=== PATIENT | female | born 1945 | race Caucasian/White ===

== ENCOUNTER 2023-02-04 22:00 | Inpatient (IN) ==
[2023-02-04 22:54] LABS: Basophils # (auto) 0.01 K/uL (0-0.2); Basophils % (auto) 0.1 %; Eosinophils # (auto) 0.09 K/uL (0-0.50); Hematocrit (blood only) 35.2 % (37.0-47.0); Hemoglobin 11.5 g/dl (12.0-16.0); Immature Granulocytes # (auto) 0.02 K/uL (0.01-0.20); Immature Granulocytes % (auto) 0.2 %; Lymphocytes # (auto) 1.42 K/uL (1.2-3.4); Lymphocytes % (auto) 15.4 %; Mean Corpuscular Hemoglobin 28.7 pg (25.0-34.0); Mean Corpuscular Hgb Conc 32.7 g/dL (32.0-36.0); Mean Corpuscular Volume 87.8 fL (80.0-100.0); Monocytes # (auto) 0.39 K/uL (0.11-0.59); Monocytes % (auto) 4.2 %; Neutrophils # (auto) 7.28 K/uL (1.40-6.50); Neutrophils % (auto) 79.1 %; Platelet Count 162 K/uL (130-400); RDW Coefficient of Variation 14.2 % (11.5-14.5); RDW Standard Deviation 45.2 fL (36.4-46.3); Red Blood Count 4.01 M/uL (4.20-5.40); White Blood Count 9.21 K/ul (4.8-10.8)
[2023-02-04 23:08] LABS: Albumin Globulin Ratio 1.3 (0.9-2); Albumin Level 3.4 gm/dl (3.4-5.0); BUN Creatinine Ratio 19.6 (10-20); Creatinine Clr Calc Pharmacy 44.1 ml/min; Est GFR (African American) 58.8 ml/min; Est GFR (Non-African American) 50.7 ml/min; Globulin 2.6 gm/dl (2.5-4.0); Magnesium 1.5 mg/dl (1.7-2.4); Potassium 3.7 mmol/L (3.5-5.1)
[2023-02-04 23:38] LABS: Adenovirus PCR Not Detected (NotDetected); Bordetella parapertussis PCR Not Detected (NotDetected); Bordetella pertussis PCR Not Detected (NotDetected); Chlamydia pneumoniae PCR Not Detected (NotDetected); Coronavirus 229E PCR Not Detected (NotDetected); Coronavirus CoV-2 (COVID19)PCR Not Detected (NotDetected); Coronavirus HKU1 PCR Not Detected (NotDetected); Coronavirus NL63 PCR Not Detected (NotDetected); Coronavirus OC43PCR Not Detected (NotDetected); Human Metapneumovirus PCR Not Detected (NotDetected); Influenza A PCR Not Detected (NotDetected); Influenza B PCR Not Detected (NotDetected); Mycoplasma pneumoniae PCR Not Detected (NotDetected); Parainfluenza Virus 1 PCR Not Detected (NotDetected); Parainfluenza Virus 2 PCR Not Detected (NotDetected); Parainfluenza Virus 3 PCR Not Detected (NotDetected); Parainfluenza Virus 4 PCR Not Detected (NotDetected); Respiratory Syncytial VirusPCR Not Detected (NotDetected); Rhinovirus/Enterovirus PCR Not Detected (NotDetected)
[2023-02-04 23:51] LABS: Troponin I High Sensitivity 67.9 pg/ml (0-14)
[2023-02-05] MEDS ORDERED: NITROGLYCERIN 2% OINTMENT 30GM TUBE EXT STA (00:49)
[2023-02-05] MEDS ORDERED: FUROSEMIDE INJ 20 MG/2 ML VIAL IV ONE ×2 (00:49→15:38)
[2023-02-05] MEDS ORDERED: ALBUT/IPRATROP 3MG/0.5MG NEB 3 ML VIAL ONE (00:54)
[2023-02-05] MEDS ORDERED: methylPREDNISolone 125 MG/2 ML VIAL IV STA (00:58)
[2023-02-05] MEDS ORDERED: LEVALBUTEROL HCL 0.63 MG/3 ML NEB NEB STA (01:02)
[2023-02-05] MEDS ORDERED: LEVALBUTEROL 1.25 MG/3 ML NEB NEB STA (01:05)
[2023-02-05] MEDS ORDERED: LEVALBUTEROL 1.25 MG/3 ML NEB ONE (01:06)
--- NOTE | 2023-02-05 01:35 | History & Physical Report ---
Date of Service February 05, 2023 Assessment & Plan (1) Acute CHF: Plan: 77yo Female with PMH dilated cardiomyopathy, HLD, HTN, CKD3, MS, CAD, PAD, hx colon cancer s/p bowel resection, LLL resection, neuropathy here for worsening SOB found to have CHF exacerbation. CHF exacerbation -patient not on low salt diet -in ED received lasix 20mg IV -CXR per my read mild pulm edema -resp panel negative -admit to PCU -track I/O's, daily weights -ordered lasix 20mg IV daily -trop 67.9, repeat pending -BNP 3412 -Mag 1.5, repleted -trend bmp Dilated cardiomyopathy -last cardiac cath 12/29 noted non ischemic dilated cardiomyopathy, EF by LVG severely reduced 25-30% -continue metoprolol, entresto, atorvastatin, aspirin, plavix GERD -continue protonix Chronic pain syndrome attributed to MS -uses PRN opioids 7.5 MME at home Left foot ulcer, chronic -consulted wound care FENa: heart healthy Code Status: DNR/intubate, daughter is POA DVT PPX: lovenox PT/OT: ordered Dispo: PCU Brittani Aguila D.O. PGY 2, FCM (2) Dilated cardiomyopathy: (3) Multiple sclerosis: (4) CAD (coronary artery disease): (5) Graves disease: (6) PAD (peripheral artery disease): (7) CKD (chronic kidney disease), stage III: (8) HTN (hypertension): History of Present Illness Chief Complaint: CHF exacerbation Primary Care Provider: Franck Ames MD 77yo Female with PMH dilated cardiomyopathy, HLD, HTN, CKD3, MS, CAD, PAD, hx colon cancer s/p bowel resection, LLL resection, neuropathy here for worsening SOB found to have CHF exacerbation. Patient states on night into monday she noted a cough, later progressed to increased SOB getting out of her chair walking across the room, she tried her inhaler it did help her symptoms. Today she noted SOB even while at rest, her daughter encouraged her to go to ED for concern pneumonia or heart failure. She describes mild nausea. SOB was worse laying down, she was sleeping propped on several pillows. In ED patient was tolerating room air, she tried to lay down and became hypoxic tachypnic was placed on BIPAP given lasix 20mg IV, also given breathing treatment levalbuterol and IV methylprednisolone, states her breathing improved. Patient states she has been eating out the past monday at [employer]. States she does not follow any particular diet, loves her sweets. She denies alcohol, has smoked about 8pk year history (60 years 1 pk a week) quit smoking last year due to housing restrictions. She has noted a 30lbs weight gain since last year that she attributes due to her diet and physical inactivity. She is not on diuretics. Patient was recently diagnosed with dilated cardiomyopathy after cardiac cath this year, believes it is due to her other daughter's this past year. Patient states her daughter is a physician and helps her with medication, daughter is POA. Allergies Allergy/AdvReac Type Severity Reaction Status Date / Time adhesive Allergy Intermediate SKIN Verified 02/04/23 22:50 BLISTERS, LOSES SKIN HERE AND THERE sulfamethoxazole AdvReac Severe CAUSED A Verified 02/04/23 22:50 [From Bactrim] PNEUMONITIS PER PT'S DAUGHTER trimethoprim [From Bactrim] AdvReac Severe CAUSED A Verified 02/04/23 22:50 PNEUMONITIS PER PT'S DAUGHTER amoxicillin [From Augmentin] AdvReac Intermediate Diarrhea Verified 02/04/23 22:50 clavulanic acid AdvReac Intermediate Diarrhea Verified 02/04/23 22:50 [From Augmentin] PAPER TAPE Allergy Intermediate SKIN Uncoded 02/04/23 22:50 BLISTERS, LOSES SKIN HERE AND THERE Home Medications Medication Instructions Recorded Confirmed Type aspirin 81 mg tablet,delayed 81 mg PO HS 03/31/22 02/04/23 History release (Adult Low Dose Aspirin) naproxen sodium 220 mg capsule 220 mg PO DIRECTED PRN Pain 04/06/22 02/04/23 History (Aleve) amantadine HCl 100 mg capsule 100 mg PO BID #180 caps 08/24/22 02/04/23 Rx clopidogrel 75 mg tablet (Plavix) 75 mg PO QAM #90 tabs 08/24/22 02/04/23 Rx omeprazole 20 mg capsule,delayed 20 mg PO QAM #90 caps 08/26/22 02/04/23 Rx release multivitamin 1 tab PO DAILY 11/08/22 02/04/23 History atorvastatin 10 mg tablet 10 mg PO QPM #30 tabs 12/21/22 02/04/23 Rx cyanocobalamin (vitamin B-12) 1,000 mcg PO DAILY 12/21/22 02/04/23 History 1,000 mcg tablet (Vitamin B-12) metoprolol succinate 25 mg 25 mg PO DAILY #30 tabs 01/03/23 02/04/23 Rx tablet,extended release 24 hr montelukast 10 mg tablet 10 mg PO DAILY 01/12/23 02/04/23 History oxycodone-acetaminophen 5 mg-325 1 tab PO DAILY PRN pain #60 tabs 01/19/23 02/04/23 Rx mg tablet (Percocet) sacubitril 24 mg-valsartan 26 mg 1 tab PO DAILY 01/19/23 02/04/23 History tablet (Entresto) albuterol sulfate 90 mcg/actuation 1 puff inhalation .Q4-6HR PRN 02/04/23 02/04/23 History aerosol inhaler Wheezing Past Med/Surg History Medical History Acid reflux Arthritis Graves disease History of bleeding ulcers History of blood clots History of colon cancer History of kidney stones HTN (hypertension) Multiple sclerosis Neuropathy Peripheral vascular disease Toe infection Surgical History History of bowel resection History of cholecystectomy History of colonoscopy History of endoscopy History of hysterectomy History of lobectomy of lung History of shoulder surgery History of toe surgery History of vascular surgery History of vascular surgery Family History Mother Family history of diabetes mellitus Aunt Family history of diabetes mellitus Sister Family history of diabetes mellitus Sister Family history of diabetes mellitus Uncle Family history of diabetes mellitus Uncle Family history of esophageal cancer Social History Smoking Status: Former smoker Tobacco Type: E-cigarettes / Vaping Cigarettes Per Day: VAPE DAILY /ADVISED NPO; Smoking End Date: quit 1 year ago, was 1 ppw; Do You Dip or Chew Tobacco: No; Hx Alcohol Use: No Hx Substance Use: No Preferred Language: [place]une[place] Communication Ability: Effective Visual Impairment: Limited Hearing Ability: Use of Hearing Aid Casting Molder Required: No Beliefs That Will Affect Care: None Current Living Situation: Alone Current Living Situation Comment: daughter checks on her daily and helps with ADLs as needed Other Information That Helps Us Care for You: No Feels Safe at Home: Yes Safety Concerns: Feels Safe At This Time Diet: regular caffeine: Yes Assistive Devices: Cane, Denture - Upper and Glasses Physical Exam Constitutional: WD/WN, vitals as above Eyes: PERRL, conjunctivae normal, anicteric sclerae ENMT: external ear and nose normal, oropharynx normal Neck: trachea midline, no thyromegaly Respiratory: normal respiratory effort Auscultation: lungs clear to auscultation bilaterally on bipap Cardiovascular: Rate/Rhythm: regular rate and regular rhythm Gastrointestinal (Abdomen): Inspection/Auscultation: abdomen normal to inspection Percussion/Palpation: + abdomen tender (bottom area due to prior surgeries) and abdomen soft Skin: no rashes, warm and dry Results & Data Results & Data Vital Signs (Past 12 Hours) Vital Signs Temp Pulse Resp Pulse Ox O2 Del Method 02/04/23 22:29 95 H 02/04/23 22:30 93 Room Air 02/04/23 22:04 36.7 C 53 L 18 96 Room Air Supervising Physician Co-Signing Physician Notes Attending addendum: I have physically seen this patient, have supervised the medical residents activities, and agree with the H&P unless as otherwise noted. Assessment and Plan: Acute on chronic HFpEF/elevated troponin/dilated cardiomyopathy/nonischemic by cardiac catheterization of 12-29-2022/nonsustained V. tach/CAD- The patient will be admitted to telemetry for serial cardiac enzymes, serial EKG's, cardiac rhythm monitoring and a 2-D echocardiogram with Dopplers. Troponin 67.9, supply/demand mismatch Received furosemide 20 mg IV in the ED Continue furosemide 20 mg IV every morning Follow serial BMP and magnesium levels Continue aspirin, clopidogrel, metoprolol succinate, Entresto Hyperglycemia- Glucose 212 on admission labs No notice of diabetes in the history note Check hemoglobin A1c Placed on Accu-Cheks with NovoLog SSI Hypomagnesemia- Magnesium 1.5 on admission Replace IV and recheck laboratories in a.m. GERD- Change omeprazole to pantoprazole Multiple sclerosis/parkinsonism- Continue amantadine B12 deficiency- Continue 1000 mcg daily supplement Remaining orders and notations as noted Resident Activity Tracking Resident Involvement: Resident Care Provided Care Provided: Adult Hospital Medicine
--- NOTE | 2023-02-05 02:02 | Emergency Department Note ---
Impression & Plan Acute CHF, Elevated troponin, SOB (shortness of breath) ED Provider Note INFORMANT: Patient and daughter ED PROVIDER(S): Cong Coates MD CHIEF COMPLAINT: Chest pain and dyspnea PLAN: Disposition: Admitted Condition: Guarded Outpatient prescription management: none Referral: None MEDICAL DECISION MAKING: Patient presented to emergency department because of chest pain and breathing difficulties. Work-up was initiated. ECG showed sinus tachycardia without ischemia. PVCs noted. Cardiac monitoring revealed moderate amount of ectopy but no dysrhythmia. The patient had a chest x-ray performed and showed cardiomegaly with mild pulmonary edema. She had an unremarkable CBC and chemistry panel. Her troponin was elevated as well as her BNP. BNP was significantly elevated and in light of her history this is concerning for CHF. The patient wanted to lie flat and did so. She became acutely dyspneic with this. She was reassessed. She had significant increased work of breathing and poor air movement. She was given a DuoNeb. She was placed on BiPAP. She was also given a Xopenex neb treatment. She was given Nitropaste and IV Lasix. Patient had a repeat chest x-ray performed. No pneumothorax. Similar findings of CHF. On reassessment the patient was improved significantly. She was breathing easy and vital signs are stabilized. Consultation was made with Dr. Phuc Beasley of the [facility] service. Patient was evaluated in the ER for further management. Discussed with client manager After review of the information above and other included data, I feel the patient requires admission. Triage Nursing notes reviewed and agree them. Vital Signs: reviewed and remarkable for hypertension Prior /Outside records reviewed: Primary care records reviewed Differential diagnosis: Reactive airway disease, pneumonia, pneumothorax, COPD, CHF, infections, cardiac ischemia, pulmonary embolism, musculoskeletal, gastrointestinal, as well as other pathologies. Diagnostics, as interpreted by me: ECG: Twelve-lead ECG was sinus tachycardia with PVCs at [address] elevation. Cardiac Monitoring: Cardiac monitoring ordered by me: The patient was placed on continuous cardiac monitoring and observed. It revealed a sinus tachycardia with PVCs at 106 bpm. Medical decision rules: none Imaging studies: Chest imaging was negative for pneumothorax or infiltrate. Cardiomegaly and pulmonary edema noted. Repeat chest x-ray with acute decompensation revealed no pneumothorax. Persi stent CHF findings. I refer you to the EMR for further details. HPI: The patient is a 77year old female who presents to the Emergency Room with complaints of chest pain and dyspnea. This started about 2 days ago and is worsening. Patient notes symptoms are worse with exertion Chest pain is described as pressure-like. The patient also notes the following associated sy mptoms, decreased energy. Daughter is a physician and noted that she heard crackles on her lungs, mostly on the right side. She notes that the patient has a history of coronary disease and peripheral vascular disease. She has an EF of 25%. The patient has used an inhaler for relieving factors. Current pain is rated as 8/10. Pt denies LOC, headache, fevers, chills, diaphoresis, visual changes, neck pain, nausea, vomiting, abdominal pain, back pain, melena, hematochezia, urinary symptoms, rash, or other complaints. PAST MEDICAL HISTORY: See Below, cardiomyopathy, osteomyelitis, CAD, PAD PAST SURGICAL HISTORY: See Below, SOCIAL HISTORY: See Below, former smoker HOME MEDICATIONS: See Below ALLERGIES: See Below VITALS: See Below PHYSICAL EXAMINATION: GENERAL: Awake, alert, wel mildly distant l-appearing, in no distress HENT: Normocephalic, atraumatic. Oropharynx unremarkable. EYES: Normal conjunctiva. Sclera non-icteric. NECK: Inspection normal. Non-tender. Supple. No nuchal rigidity. FROM. No masses. RESPIRATORY: Few scattered crackles, worse on the right. Single expiratory wheeze noted on the right. Mildly increased respiratory effort. CARDIAC: Borderline tachycardic rate. Normal rhythm. No murmurs. No rubs. Extremities warm and well perfused. Pulses equal. No JVD. GI: Soft, non-distended. No tenderness to palpation. No rebound or guarding. No masses. RECTAL: Deferred. MUSCULOSKELETAL: Atraumatic. Chest examination reveals no tenderness. The back is symmetrical on inspection without obvious abnormality. There is no CVA tenderness to palpation. No joint edema. LOWER EXTREMITIES: Calves are equal size bilaterally and non-tender. No edema. No discoloration. NEURO: Normal sensorium. No sensory or motor deficits noted. SKIN: No rash or jaundice noted. CRITICAL CARE: I have personally spent greater than 30 minutes of critical care time in the direct management of this patient. This includes bedside care, interpretation of diagnostic studies, and testing, discussion with consultants, patient, and other required patient management activities. These minutes are in excess of all separately billable procedures. Past Med/Surg History Medical History Acid reflux Arthritis Graves disease History of bleeding ulcers History of blood clots History of colon cancer History of kidney stones HTN (hypertension) Multiple sclerosis Neuropathy Peripheral vascular disease Toe infection Surgical History History of bowel resection History of cholecystectomy History of colonoscopy History of endoscopy History of hysterectomy History of lobectomy of lung History of shoulder surgery History of toe surgery History of vascular surgery History of vascular surgery Family History Mother Family history of diabetes mellitus Aunt Family history of diabetes mellitus Sister Family history of diabetes mellitus Sister Family history of diabetes mellitus Uncle Family history of diabetes mellitus Uncle Family history of esophageal cancer Social History Smoking Status: Former smoker Tobacco Type: E-cigarettes / Vaping Cigarettes Per Day: VAPE DAILY /ADVISED NPO; Do You Dip or Chew Tobacco: No; Hx Alcohol Use: No Hx Substance Use: No Preferred Language: Amharic Communication Ability: Effective Visual Impairment: Limited Hearing Ability: Use of Hearing Aid Lay Out Worker Required: No Beliefs That Will Affect Care: None Current Living Situation: Family Current Living Situation Comment: DAUGHTER STAYS MOST OF THE TIME, CATS AND A DOG Feels Safe at Home: Yes Diet: regular caffeine: Yes Assistive Devices: None Allergies Allergies Allergy/AdvReac Type Severity Reaction Status Date / Time adhesive Allergy Intermediate SKIN Verified 02/04/23 22:50 BLISTERS, LOSES SKIN HERE AND THERE sulfamethoxazole AdvReac Severe CAUSED A Verified 02/04/23 22:50 [From Bactrim] PNEUMONITIS PER PT'S DAUGHTER trimethoprim [From Bactrim] AdvReac Severe CAUSED A Verified 02/04/23 22:50 PNEUMONITIS PER PT'S DAUGHTER amoxicillin [From Augmentin] AdvReac Intermediate Diarrhea Verified 02/04/23 22:50 clavulanic acid AdvReac Intermediate Diarrhea Verified 02/04/23 22:50 [From Augmentin] PAPER TAPE Allergy Intermediate SKIN Uncoded 02/04/23 22:50 BLISTERS, LOSES SKIN HERE AND THERE Home Meds Home Medications Medication Instructions Recorded Confirmed aspirin 81 mg tablet,delayed 81 mg PO HS 03/31/22 02/04/23 release (Adult Low Dose Aspirin) naproxen sodium 220 mg capsule 220 mg PO DIRECTED PRN Pain 04/06/22 02/04/23 (Aleve) multivitamin 1 tab PO DAILY 11/08/22 02/04/23 cyanocobalamin (vitamin B-12) 1,000 mcg PO DAILY 12/21/22 02/04/23 1,000 mcg tablet (Vitamin B-12) montelukast 10 mg tablet 10 mg PO DAILY 01/12/23 02/04/23 sacubitril 24 mg-valsartan 26 mg 1 tab PO DAILY 01/19/23 02/04/23 tablet (Entresto) albuterol sulfate 90 mcg/actuation 1 puff inhalation .Q4-6HR PRN 02/04/23 02/04/23 aerosol inhaler Wheezing Previous Rx's Medication Instructions Recorded amantadine HCl 100 mg capsule 100 mg PO BID #180 caps 08/24/22 clopidogrel 75 mg tablet (Plavix) 75 mg PO QAM #90 tabs 08/24/22 omeprazole 20 mg capsule,delayed 20 mg PO QAM #90 caps 08/26/22 release atorvastatin 10 mg tablet 10 mg PO QPM #30 tabs 12/21/22 metoprolol succinate 25 mg 25 mg PO DAILY #30 tabs 01/03/23 tablet,extended release 24 hr oxycodone-acetaminophen 5 mg-325 1 tab PO DAILY PRN pain #60 tabs 01/19/23 mg tablet (Percocet) Results & Data (ED) Vital Signs Vital Signs - 24 hr 02/04/23 22:04 02/04/23 22:30 02/04/23 22:29 Temperature 36.7 C Temperature Source Temporal Artery Scan Pulse Rate 53 L 95 H Respiratory Rate 18 Respiratory Effort / Characteristics Non-Labored Spontaneous Respiratory Depth Normal Respiratory Pattern Pulse Oximetry 96 93 Oxygen Delivery Method Room Air Room Air Fraction of Inspired Oxygen Sepsis Recent Fever Within 48 Hours No Sepsis New/Unexplained Change in Mental Status No Sepsis Action Taken by Nursing No Action Required 02/05/23 01:34 Temperature Temperature Source Pulse Rate 106 H Respiratory Rate 35 H Respiratory Effort / Characteristics Spontaneous Labored Short of Breath Respiratory Depth Respiratory Pattern Tachypnea Pulse Oximetry 100 Oxygen Delivery Method Fraction of Inspired Oxygen 40 Sepsis Recent Fever Within 48 Hours Sepsis New/Unexplained Change in Mental Status Sepsis Action Taken by Nursing Laboratory Data 02/04/23 22:30 02/04/23 22:30 Lab Results 02/04/23 02/04/23 02/04/23 Range/Units 22:30 22:30 22:30 WBC 9.21 (4.8-10.8) K/ul RBC 4.01 L (4.20-5.40) M/uL Hgb 11.5 L (12.0-16.0) g/dl Hct 35.2 L (37.0-47.0) % MCV 87.8 (80.0-100.0) fL MCH 28.7 (25.0-34.0) pg MCHC 32.7 (32.0-36.0) g/dL RDW Std Deviation 45.2 (36.4-46.3) fL RDW Coeff of Aminah 14.2 (11.5-14.5) % Plt Count 162 (130-400) K/uL MPV 12.0 (9.4-12.4) fL Immature Gran % (Auto) 0.2 % Neut % (Auto) 79.1 % Lymph % (Auto) 15.4 % Cataño % (Auto) 4.2 % Eos % (Auto) 1.0 % Baso % (Auto) 0.1 % Neut # (Auto) 7.28 H (1.40-6.50) K/uL Lymph # (Auto) 1.42 (1.2-3.4) K/uL Cataño # (Auto) 0.39 (0.11-0.59) K/uL Eos # (Auto) 0.09 (0-0.50) K/uL Baso # (Auto) 0.01 (0-0.2) K/uL Immature Gran # (Auto) 0.02 (0.01-0.20) K/uL Sodium 142 (136-145) mmol/L Potassium 3.7 (3.5-5.1) mmol/L Chloride 111 H (98-107) mmol/L Carbon Dioxide 25 (21-32) mmol/L Anion Gap 6 (3-11) BUN 21 (6-23) mg/dl Creatinine 1.07 (0.6-1.2) mg/dl Est Cr Clr Drug Dosing 44.1 ml/min Est GFR ( Amer) 58.8 ml/min Est GFR (Non-Af Amer) 50.7 ml/min BUN/Creatinine Ratio 19.6 (10-20) Glucose 212 H (70-99(Fasting)) mg/dl Lactate (0.4-2.0) mmol/L Calcium 9.0 (8.6-10.3) mg/dl Magnesium 1.5 L (1.7-2.4) mg/dl Total Bilirubin 1.0 (0.2-1.0) mg/dl AST 11 L (13-39) U/L ALT 11 (7-52) U/L Alkaline Phosphatase 92 (34-104) U/L Troponin I High Sens 67.9 H* (0-14) pg/ml B-Natriuretic Peptide 3412 H (0-100) pg/ml Total Protein 6.0 (6.0-8.3) gm/dl Albumin 3.4 (3.4-5.0) gm/dl Globulin 2.6 (2.5-4.0) gm/dl Albumin/Globulin Ratio 1.3 (0.9-2) Adenovirus (PCR) (NotDetected) B. pertussis DNA (PCR) (NotDetected) B.parapertussis DNA PCR (NotDetected) C. pneumoniae DNA (PCR) (NotDetected) Coronavirus OC43 (PCR) (NotDetected) Coronavirus HKU1 (PCR) (NotDetected) Coronavirus 229E (PCR) (NotDetected) SARS-CoV-2 (PCR) (NotDetected) Coronavirus NL63 (PCR) (NotDetected) Human Metapneumovir PCR (NotDetected) Influenza Type A (PCR) (NotDetected) Influenza Type B (PCR) (NotDetected) M. pneumoniae (PCR) (NotDetected) Parainfluenza 1 (PCR) (NotDetected) Parainfluenza 2 (PCR) (NotDetected) Parainfluenza 3 (PCR) (NotDetected) Parainfluenza 4 (PCR) (NotDetected) RSV (PCR) (NotDetected) Entero/Rhino (PCR) (NotDetected) 02/04/23 02/04/23 Range/Units 22:30 22:51 WBC (4.8-10.8) K/ul RBC (4.20-5.40) M/uL Hgb (12.0-16.0) g/dl Hct (37.0-47.0) % MCV (80.0-100.0) fL MCH (25.0-34.0) pg MCHC (32.0-36.0) g/dL RDW Std Deviation (36.4-46.3) fL RDW Coeff of Aminah (11.5-14.5) % Plt Count (130-400) K/uL MPV (9.4-12.4) fL Immature Gran % (Auto) % Neut % (Auto) % Lymph % (Auto) % Cataño % (Auto) % Eos % (Auto) % Baso % (Auto) % Neut # (Auto) (1.40-6.50) K/uL Lymph # (Auto) (1.2-3.4) K/uL Cataño # (Auto) (0.11-0.59) K/uL Eos # (Auto) (0-0.50) K/uL Baso # (Auto) (0-0.2) K/uL Immature Gran # (Auto) (0.01-0.20) K/uL Sodium (136-145) mmol/L Potassium (3.5-5.1) mmol/L Chloride (98-107) mmol/L Carbon Dioxide (21-32) mmol/L Anion Gap (3-11) BUN (6-23) mg/dl Creatinine (0.6-1.2) mg/dl Est Cr Clr Drug Dosing ml/min Est GFR ( Amer) ml/min Est GFR (Non-Af Amer) ml/min BUN/Creatinine Ratio (10-20) Glucose (70-99(Fasting)) mg/dl Lactate 1.6 (0.4-2.0) mmol/L Calcium (8.6-10.3) mg/dl Magnesium (1.7-2.4) mg/dl Total Bilirubin (0.2-1.0) mg/dl AST (13-39) U/L ALT (7-52) U/L Alkaline Phosphatase (34-104) U/L Troponin I High Sens (0-14) pg/ml B-Natriuretic Peptide (0-100) pg/ml Total Protein (6.0-8.3) gm/dl Albumin (3.4-5.0) gm/dl Globulin (2.5-4.0) gm/dl Albumin/Globulin Ratio (0.9-2) Adenovirus (PCR) Not Detected (NotDetected) B. pertussis DNA (PCR) Not Detected (NotDetected) B.parapertussis DNA PCR Not Detected (NotDetected) C. pneumoniae DNA (PCR) Not Detected (NotDetected) Coronavirus OC43 (PCR) Not Detected (NotDetected) Coronavirus HKU1 (PCR) Not Detected (NotDetected) Coronavirus 229E (PCR) Not Detected (NotDetected) SARS-CoV-2 (PCR) Not Detected (NotDetected) Coronavirus NL63 (PCR) Not Detected (NotDetected) Human Metapneumovir PCR Not Detected (NotDetected) Influenza Type A (PCR) Not Detected (NotDetected) Influenza Type B (PCR) Not Detected (NotDetected) M. pneumoniae (PCR) Not Detected (NotDetected) Parainfluenza 1 (PCR) Not Detected (NotDetected) Parainfluenza 2 (PCR) Not Detected (NotDetected) Parainfluenza 3 (PCR) Not Detected (NotDetected) Parainfluenza 4 (PCR) Not Detected (NotDetected) RSV (PCR) Not Detected (NotDetected) Entero/Rhino (PCR) Not Detected (NotDetected) Administered Medications Discontinued Medications Albuterol (Albut/Ipratrop 3mg/0.5mg Neb 3 Ml Vial) Confirm Administered Dose 3 ml .ROUTE .STK-MED ONE Stop: 02/05/23 00:55 Last Admin: 02/05/23 01:14 Dose: Not Given Documented By: CLIVE Furosemide (Furosemide Inj 20 Mg/2 Ml Vial) 20 mg IV ONE ONE Stop: 02/05/23 00:50 Last Admin: 02/05/23 01:13 Dose: 20 mg Documented By: CLIVE Levalbuterol HCl (Levalbuterol Hcl 0.63 Mg/3 Ml Neb) 0.63 mg NEB NOW STA; Protocol Stop: 02/05/23 01:03 Last Admin: 02/05/23 01:21 Dose: Not Given Documented By: SYLWIA Levalbuterol HCl (Levalbuterol 1.25 Mg/3 Ml Neb) 1.25 mg NEB NOW STA; Protocol Stop: 02/05/23 01:06 Last Admin: 02/05/23 01:21 Dose: 1.25 mg Documented By: SYLWIA Levalbuterol HCl (Levalbuterol 1.25 Mg/3 Ml Neb) Confirm Administered Dose 1.25 mg .ROUTE .STK-MED ONE Stop: 02/05/23 01:07 Last Admin: 02/05/23 01:21 Dose: Not Given Documented By: SYLWIA Methylprednisolone (Methylprednisolone 125 Mg/2 Ml Vial) 125 mg IV NOW STA Stop: 02/05/23 00:59 Last Admin: 02/05/23 01:14 Dose: 125 mg Documented By: CLIVE Nitroglycerin (Nitroglycerin 2% Ointment 30gm Tube) 0.5 inch EXT NOW STA Stop: 02/05/23 00:50 Last Admin: 02/05/23 01:13 Dose: 0.5 inch Documented By: CLIVE Discharge Plan Visit Data Chief Complaint: Chest Pain Stated Complaint: CHEST PAIN AND PRESSURE, SHORTNESS OF BREATH ED Provider: Cong Coates Discharge Problem: Acute CHF, Elevated troponin, SOB (shortness of breath) Forms Stand Alone Forms: [facility] Prescriptions Prescriptions: No Action Entresto 24-26 mg tablet 1 tab PO DAILY amantadine HCl 100 mg capsule 100 mg PO BID Qty: 180 3RF clopidogrel [Plavix] 75 mg tablet 75 mg PO QAM Qty: 90 3RF oxycodone-acetaminophen [Percocet] 5-325 mg tablet 1 tab PO DAILY PRN (Reason: pain) Qty: 60 0RF cyanocobalamin (vitamin B-12) [Vitamin B-12] 1,000 mcg tablet 1,000 mcg PO DAILY atorvastatin 10 mg tablet 10 mg PO QPM Qty: 30 11RF metoprolol succinate 25 mg tablet extended release 24 hr 25 mg PO DAILY Qty: 30 11RF aspirin [Adult Low Dose Aspirin] 81 mg tablet,delayed release (DR/EC) 81 mg PO HS omeprazole 20 mg capsule,delayed release(DR/EC) 20 mg PO QAM Qty: 90 3RF montelukast 10 mg tablet 10 mg PO DAILY multivitamin Tablet 1 tab PO DAILY albuterol sulfate 90 mcg/actuation HFA aerosol inhaler 1 puff INHALATION .Q4-6HR PRN (Reason: Wheezing) naproxen sodium [Aleve] 220 mg Capsule 220 mg PO DIRECTED PRN (Reason: Pain) Referrals Referrals: Franck Ames MD [Primary Care Provider] -
[2023-02-05] MEDS ORDERED: POLYETHYLENE (MIRALAX) 17 GM PACK PO PRN (03:41)
[2023-02-05] MEDS ORDERED: ACETAMINOPHEN 325 MG TAB PO PRN (03:41)
[2023-02-05] MEDS: MAGNESIUM SULFATE / D5W 1 GM/100 ML BAG IV SCH ×4 (04:09→09:29)
[2023-02-05 04:28] LABS: Appearance Urine Clear (Clear); Bilirubin Urine Negative (Negative); Blood Urine Negative (Negative); Color Urine Yellow; Glucose Urine UA Negative (Negative); Ketones Urine Negative (Negative); Leukocyte Esterase Urine Negative (Negative); Nitrite Urine Negative (Negative); Protein Urine Negative (Negative); Specific Gravity Urine 1.013 (1.000-1.030); Urobilinogen Urine Negative (Negative)
[2023-02-05] MEDS: ENOXAPARIN INJ 40 MG/0.4 ML SYR SQ SCH (08:29)
[2023-02-05] MEDS: MULTIVITAMIN TAB PO SCH (08:31)
[2023-02-05] MEDS: CYANOCOBALAMIN (B-12) 500 MCG TABLET PO SCH (08:31)
[2023-02-05] MEDS: PANTOprazole 40 MG TAB PO SCH (08:31)
[2023-02-05] MEDS: AMANTADINE HCL 100 MG CAPSULE PO SCH ×2 (08:31→20:39)
[2023-02-05] MEDS: CLOPIDOGREL BISULFATE 75 MG TAB PO SCH (08:31)
[2023-02-05] MEDS: MONTELUKAST SODIUM 10 MG TABLET PO SCH (08:31)
[2023-02-05] MEDS: METOPROLOL SUCC 25MG EXT REL TAB PO SCH (08:31)
[2023-02-05] MEDS: FUROSEMIDE INJ 20 MG/2 ML VIAL IV SCH (08:43)
--- NOTE | 2023-02-05 10:38 | XRay Report ---
XR chest 1V portable CLINICAL HISTORY: Dyspnea TECHNIQUE: Single frontal radiograph of the chest was obtained. Comparison: Comparison is made to chest radiograph 08/25/2022 FINDINGS: No lines and tubes are seen. Cardiomegaly is noted. The aortic arch is calcified. Prominence and ceph alization of the vasculature is seen. No evidence of pleural effusion or pneumothorax. IMPRESSION: Cardiomegaly and mild pulmonary edema. No evidence of pneumonia. ACT 112: Negative or not required by law. Electronically signed by: Leonardo Mccullough M.D. 02/05/2023 10:37 AM
[2023-02-05 11:22] LABS: BUN Creatinine Ratio 18.8 (10-20); Creatinine Clr Calc Pharmacy 40.3 ml/min; Est GFR (African American) 52.8 ml/min; Est GFR (Non-African American) 45.5 ml/min; Magnesium 2.7 mg/dl (1.7-2.4); Potassium 3.7 mmol/L (3.5-5.1)
[2023-02-05] MEDS ORDERED: LANTUS PER UNIT CHARGE SQ ONE (11:44)
[2023-02-05] MEDS ORDERED: GLUCOSE 10 TAB/TUBE PO PRN (12:00)
[2023-02-05] MEDS ORDERED: DEXTROSE 50% 50 ML SYRINGE IV PRN (12:00)
[2023-02-05] MEDS ORDERED: GLUCAGON FOR INJ 1 MG VIAL IM PRN (12:00)
[2023-02-05] MEDS ORDERED: GLUCOSE 40% GEL 15 GM TUBE PO PRN (12:00)
[2023-02-05] MEDS ORDERED: CARBOHYDRATES FOR HYPOGLYCEMIA PO PRN (12:00)
[2023-02-05] MEDS: INSULIN ASPART PER UNIT CHARGE SC SCH ×3 (12:21→20:12)
--- NOTE | 2023-02-05 12:56 | XRay Report ---
XR chest 1V portable CLINICAL HISTORY: acute SOB TECHNIQUE: Single frontal radiograph of the chest was obtained. Comparison: Comparison is made to chest radiograph 02/04/2023 FINDINGS: No lines and tubes are seen. Cardiomegaly is noted. The aortic arch is calcified. The lungs are clear . No evidence of pleural effusion or pneumothorax. IMPRESSION: No acute abnormalities and in particular no radiographic evidence of pneumonia. ACT 112: Negative or not required by law. Electronically signed by: Leonardo Mccullough M.D. 02/05/2023 12:55 PM
--- NOTE | 2023-02-05 15:39 | Hospitalist Progress Note ---
Date of Service February 05, 2023 Assessment & Plan (1) Acute respiratory distress: Plan: 2nd to #2 - marked improvement required BIPAP early on - now resolved, over to NC O2 (2) Acute on chronic systolic heart failure: Plan: EF 45-50% on echo 11/2022 Cardiac cath - 12/29/22 - EF 25-30% repeat echo today - EF 30-35% has received several doses of IV lasix with improved volume status will give additional dose of 20mg lasix this afternoon, then continue 20mg IV daily cont metoprolol succinate 25mg daily resume Entresto tomorrow if BPs will allow and BMP is stable will ask Dr Santa to see in consult from [facility] Cardiology suspect that dietary indiscretion playing a large role in decompensation will ask rail maintenance worker to see to give nutritional counseling will need low-dose lasix at discharge (3) Elevated troponin: Plan: mild HS trop elevation 2nd to #2 had heart cath about 1 month ago - nonobstructive CAD only (4) Dilated cardiomyopathy: Plan: etiology of CHF?? 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 other? defer w/u to cardiology (5) Neuropathic ulcer of left foot: Plan: cont Aquacel and overlying dressing per the instructions listed in most recent [facility] note will ask wound care to see formally in consult (6) Multiple sclerosis: Plan: noted established dx cont amantadine (7) Graves disease: Plan: TSH 11/2022 wnl h/o Graves s/p radioactive iodine ablation many years ago (8) PAD (peripheral artery disease): Plan: noted cont statin cont plavix cont asa (9) CKD (chronic kidney disease), stage III: Plan: stage 3b daily BMP while on lasix (10) HTN (hypertension): Plan: BPs controlled today cont metoprolol resume Entresto as able (11) History of colon cancer: Plan: noted s/p resection check Fe studies given her chronic myalgias/cramps (12) History of lobectomy of lung: Plan: LLL 2nd to pulmonary nodule this was NON-cancerous by her report (13) Myalgia: Plan: Check Fe studies TSH wnl B12 778 in late 2021 Check CPK (14) Nonobstructive atherosclerosis of coronary artery: Plan: 12/[address] Santa -- Coronary angiography findings: LMT: Large-caliber vessel bifurcating into LAD and left circumflex. No angiographically significant disease. LAD: Large caliber and transapical vessel. Proximal segment with mild disease. Then at the level of the first septal but before the first diagonal there is a long eccentric stenosis of 40 to 50%. First diagonal is medium to large in caliber and branching. The mid and distal LAD provides additional septal branches and some small diagonal branches. There is no more than mild luminal irregularities in the remainder of the LAD and its branches. LCx: Large caliber and nondominant vessel. High arising small caliber OM1 followed by a large caliber multi branching OM 2. The AV groove vessel then becomes medium in caliber as it travels to the AV groove providing an atrial branch and terminating as a small distal vessel. There is diffuse mild plaque in the circumflex and its branches less than 20 to 30% stenosis. RCA: Medium to large caliber dominant vessel. Proximal segment with mild calcification and a long eccentric stenosis of up to 40%. The mid vessel has diffuse mild disease and mild calcification. Distally the vessel has minimal disease and bifurcates into a medium caliber PDA and a large multi branching posterolateral. These vessels have mild nonocclusive disease near the ostium and proximal portions. LVEF: 25 to 30% Inferior akinesis, moderate to severe global hypokinesis 2+ mitral regurgitation Cont BB Cont asa Cont plavix Cont statin (15) Hypomagnesemia: Plan: replaced resolved (16) DVT prophylaxis: Plan: lovenox daily (17) Hyperglycemia: Plan: she did receive IV solumedrol 125mg in the ER which is likely contributing the effects of such should be gone by tomorrow [id number] the high values are suspicious for new onset T2DM previous a1c was broderline high (for pre-DM) recheck a1c am change diet to DM diet lantus 8 units x 1 now novolog SSI re-eval tomorrow Plan daughter - Jennifer Rajan - updated by phone this evening Admission and Anticipated Discharge Date Admission Date: February 05, 2023 Subjective patient had required BIPAP in the ER upon presentation due to significant respiratory distress she was diuresed and symptoms improved able to wean BIPAP to NC O2 during my visit she reports she feels better than at ER presentation still with BROUSSARD and still requiring NC O2 still with a little cough had had edema in legs but this is improved tele wnl overnight - just ectopy she admits to eating out at multiple restaurants this past week diet is poor - "I love sweets" does not check daily weights no prior h/o diabetes has been working with [facility] wound care center for chronic L plantar foot ulcer it has improved significantly Review of Systems Review of Systems: gen - no fevers cv - no chest pain, ongoing orthopnea; edema improved pulm - dyspnea improved, but still with BROUSSARD; mild cough and wheeze GI - no abd pain or N/V Physical Exam Physical Exam: gen - NAD, pleasant neck - mild JVD mouth - MMM heart - RRR, extra beats, s1 s2, 1-2/6 MARY LLSB lungs - b/l basilar rales, mild end-exp wheezes, no increased work of breathing abd - soft NT ND BS+ ext - no edema, pulses 2+ b/l musculo - TMA of all 5 toes L foot skin - left foot, plantar aspect - tiny ulcer, 4-5mm in size, no drainage, clean psych - a/o x 3 Results & Data Results & Data Vital Signs (Past 12 Hours) Vital Signs Temp Pulse Pulse Resp BP Pulse Ox O2 Del Method 02/05/23 15:19 36.6 C 86 18 128/69 96 Nasal Cannula 02/05/23 08:00 Nasal Cannula 02/05/23 11:33 36.6 C 77 17 149/67 H 97 Nasal Cannula 02/05/23 07:00 76 02/05/23 07:38 37.0 C 79 17 127/72 97 Nasal Cannula 02/05/23 04:00 Nasal Cannula 02/05/23 04:00 36.8 C 81 22 143/84 H 95 Nasal Cannula O2 Flow Rate 02/05/23 15:19 2 02/05/23 08:00 2 02/05/23 11:33 2 02/05/23 07:00 02/05/23 07:38 2 02/05/23 04:00 2 02/05/23 04:00 2 Laboratory Results Laboratory Results - last 24 hr 02/05/23 02/05/23 02/05/23 05:15 10:41 12:08 WBC RBC Hgb Hct MCV MCH MCHC RDW Std Deviation RDW Coeff of Aminah Plt Count MPV Sodium 137 Potassium 3.7 Chloride 104 Carbon Dioxide 21 Anion Gap 12 H BUN 22 Creatinine 1.17 Est Cr Clr Drug Dosing 40.3 Est GFR ( Amer) 52.8 Est GFR (Non-Af Amer) 45.5 BUN/Creatinine Ratio 18.8 Glucose 321 H* POC Glucose 307 H* Estimat Average Glucose Hemoglobin A1c Calcium 9.0 Magnesium 2.7 H Iron TIBC Unsaturated IBC Transferrin % Sat Ferritin Total Creatine Kinase Troponin I High Sens 71.2 H* PG Care Time/CCT Total # of Minutes Spent Total Time Spent with Patient: Total time spent is greater than 50% in coordination of care (as documented) at patient's floor/unit and/or counseling patient: Coding Level of Care Code 53168 SUB INP/OBS CARE 3/50MIN Diagnoses Acute respiratory distress R06.03 Acute on chronic systolic heart failure I50.23 Elevated troponin R77.8 Dilated cardiomyopathy I42.0 Neuropathic ulcer of left foot L97.529 Multiple sclerosis G35 Graves disease E05.00 PAD (peripheral artery disease) I73.9 CKD (chronic kidney disease), stage III N18.30 HTN (hypertension) I10 History of colon cancer Z85.038 History of lobectomy of lung Z90.2 Myalgia M79.10 Nonobstructive atherosclerosis of coronary artery I25.10 Hypomagnesemia E83.42 DVT prophylaxis Z29.9 Hyperglycemia R73.9
[2023-02-05] MEDS: POTASSIUM CHLORIDE CRTAB 20 MEQ TABCR PO SCH ×2 (16:37→20:39)
--- NOTE | 2023-02-05 17:22 | XCELERA ---
[id number]
[2023-02-05] MEDS: traMADol HCL 50 MG TABLET PO PRN (20:39)
[2023-02-05] MEDS: ATORVASTATIN 10 MG TAB PO SCH (20:39)
[2023-02-05] MEDS: ASPIRIN 81 MG ECTAB PO SCH (20:39)
[2023-02-05] MEDS: ALBUTEROL 0.083% NEBU SOLN 3 ML VIAL NEB PRN (20:47)
--- NOTE | 2023-02-05 21:35 | Electrocardiogram Report ---
Test Reason : Blood Pressure : / mmHG Vent. Rate : 105 BPM Atrial Rate : 105 BPM P-R Int : 150 ms QRS Dur : 082 ms QT Int : 338 ms P-R-T Axes : 040 055 038 degrees QTc Int : 446 ms Sinus tachycardia with frequent Premature ventricular complexes Otherwise normal ECG No previous ECGs available Confirmed by Zac Cooper ([id number]) on 02/05/2023 9:35:29 PM Referred By: REFERRED SELF Confirmed By:Zac Cooper
[2023-02-06] MEDS: ALBUTEROL 0.083% NEBU SOLN 3 ML VIAL NEB PRN ×2 (03:40→14:44)
[2023-02-06 04:11] LABS: Hematocrit (blood only) 34.6 % (37.0-47.0); Hemoglobin 11.3 g/dl (12.0-16.0); Mean Corpuscular Hemoglobin 28.5 pg (25.0-34.0); Mean Corpuscular Hgb Conc 32.7 g/dL (32.0-36.0); Mean Corpuscular Volume 87.4 fL (80.0-100.0); Mean Platelet Volume 12.5 fL (9.4-12.4); Platelet Count 183 K/uL (130-400); RDW Coefficient of Variation 14.2 % (11.5-14.5); RDW Standard Deviation 45.5 fL (36.4-46.3); Red Blood Count 3.96 M/uL (4.20-5.40); White Blood Count 12.07 K/ul (4.8-10.8)
[2023-02-06 04:37] LABS: BUN Creatinine Ratio 23.2 (10-20); Calcium 9.1 mg/dl (8.6-10.3); Creatinine Clr Calc Pharmacy 31.2 ml/min; Est GFR (African American) 38.8 ml/min; Est GFR (Non-African American) 33.5 ml/min; Potassium 4.6 mmol/L (3.5-5.1)
[2023-02-06 04:54] LABS: Ferritin 26.6 ng/ml (8-388)
--- NOTE | 2023-02-06 05:17 | Billing Data ---
Date of Service February 06, 2023 Coding Level of Care Code 68781 INT INP/OBS CARE
--- NOTE | 2023-02-06 06:20 | Electrocardiogram Report ---
Test Reason : Blood Pressure : / mmHG Vent. Rate : 081 BPM Atrial Rate : 081 BPM P-R Int : 110 ms QRS Dur : 086 ms QT Int : 420 ms P-R-T Axes : -22 034 080 degrees QTc Int : 487 ms Sinus rhythm with short VT Nonspecific T wave abnormality Abnormal ECG When compared with ECG of 04-FEB-2023 22:12, (unconfirmed) Premature ventricular complexes are no longer Present VT interval has decreased Confirmed by Zac Cooper ([id number]) on 02/06/2023 6:19:51 AM Referred By: REFERRED SELF Confirmed By:Zac Cooper
[2023-02-06 08:22] LABS: Estimated Average Glucose 123 mg/dl; Hemoglobin A1C 5.9 % (4.5-5.6)
[2023-02-06] MEDS: PANTOprazole 40 MG TAB PO SCH (08:28)
[2023-02-06] MEDS: CYANOCOBALAMIN (B-12) 500 MCG TABLET PO SCH (08:28)
[2023-02-06] MEDS: AMANTADINE HCL 100 MG CAPSULE PO SCH ×2 (08:28→21:05)
[2023-02-06] MEDS: MULTIVITAMIN TAB PO SCH (08:28)
[2023-02-06] MEDS: CLOPIDOGREL BISULFATE 75 MG TAB PO SCH (08:28)
[2023-02-06] MEDS: METOPROLOL SUCC 25MG EXT REL TAB PO SCH (08:28)
[2023-02-06] MEDS: MONTELUKAST SODIUM 10 MG TABLET PO SCH (08:29)
[2023-02-06] MEDS: INSULIN ASPART PER UNIT CHARGE SC SCH ×4 (08:29→20:15)
[2023-02-06] MEDS: ENOXAPARIN INJ 40 MG/0.4 ML SYR SQ SCH (08:30)
[2023-02-06] MEDS: FUROSEMIDE INJ 20 MG/2 ML VIAL IV SCH (08:34)
[2023-02-06] MEDS ORDERED: POTASSIUM CHLORIDE CRTAB 20 MEQ TABCR PO SCH (09:00)
[2023-02-06] MEDS ORDERED: ALBUT/IPRATROP 3MG/0.5MG NEB 3 ML VIAL NEB STA (14:47)
--- NOTE | 2023-02-06 14:48 | Hospitalist Progress Note ---
Date of Service February 06, 2023 Assessment & Plan (1) Acute respiratory failure with hypoxia: Plan: SEVERE respiratory event today. Was sudden/abrupt following drinking water with a straw. She reports overt aspiration signs/symptoms with liquids for many months. Dysph agia for solids as well (had such with lunch today). Distress improved with aggressive pulm toilet and bronchodilators. STAT cxr without overt pneumonitis although infiltrates in the bases remain. Will need to follow carefully for development of fever, etc suggesting development of aspiration pneumonia. Place on solumedrol 30mg IV BID for severe wheezing. Schedule duonebs qid. NPO x for meds and sips. I spoke directly to speech therapy and they will see her in am for evaluation. She will need an instrumental study. May need GI consultation. Cause of dysphagia? Anatomical issue? Due to MS? other? (2) Aspiration into lower respiratory tract: Plan: Likely acute on chronic. See above. NPO. Speech consultation. etc. (3) Dysphagia: Plan: See above NPO Speech therapy eval Likely to need GI consultation given prior h/o esophageal stenosis or ring or other pathology that required EGD dilatation consider MRI brain to r/o progressive MS lesions (4) Acute on chronic systolic heart failure: Plan: EF 45-50% on echo 11/2022 Cardiac cath - 12/29/22 - EF 25-30% repeat echo this admission - EF 30-35% s/p multiple doses of lasix IV since admission following IV lasix this am she had little UOP with such her creatinine also loretta overnight decompensation likely resolved and remaining pulm symptoms are due to #2 stop further lasix cont metoprolol succinate 25mg daily resume Entresto when able cards consult with Dr Santa from [facility] Cardiology requested for any other recs suspect that dietary indiscretion played a large role in decompensation gusset ripper to see to give nutritional counseling will likely need low-dose lasix at discharge (5) Elevated troponin: Plan: mild HS trop elevation 2nd to #2 had heart cath about 1 month ago - nonobstructive CAD only see below (6) Dilated cardiomyopathy: Plan: etiology of CHF?? 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 other? defer w/u to cardiology - follows with Dr Santa (7) Neuropathic ulcer of left foot: Plan: cont Aquacel and overlying dressing per the instructions listed in most recent Wound Care Clinic note wound care consult requested (8) Multiple sclerosis: Plan: noted established dx cont amantadine previously followed by Dr Jamie Rutledge Neurology see above re: dysphagia (9) Graves disease: Plan: TSH 11/2022 wnl h/o Graves s/p radioactive iodine ablation many years ago (10) PAD (peripheral artery disease): Plan: noted cont statin cont plavix cont asa (11) CKD (chronic kidney disease), stage III: Plan: stage 3b creatinine loretta overnight in face of diuresis stop lasix daily BMP (12) HTN (hypertension): Plan: BPs controlled cont metoprolol resume Entresto when able (13) History of colon cancer: Plan: noted s/p resection checked Fe studies given her chronic myalgias/cramps - she is Fe deficient - see below (14) History of lobectomy of lung: Plan: LLL 2nd to pulmonary nodule this was NON-cancerous by her report (15) Myalgia: Plan: Fe studies c/w Fe def which could be contributing TSH wnl B12 778 in late 2021 CPK wnl (16) Nonobstructive atherosclerosis of coronary artery: Plan: 12/[address] Santa -- Coronary angiography findings: LMT: Large-caliber vessel bifurcating into LAD and left circumflex. No angiographically significant disease. LAD: Large caliber and transapical vessel. Proximal segment with mild disease. Then at the level of the first septal but before the first diagonal there is a long eccentric stenosis of 40 to 50%. First diagonal is medium to large in caliber and branching. The mid and distal LAD provides additional septal branches and some small diagonal branches. There is no more than mild luminal irregularities in the remainder of the LAD and its branches. LCx: Large caliber and nondominant vessel. High arising small caliber OM1 followed by a large caliber multi branching OM 2. The AV groove vessel then becomes medium in caliber as it travels to the AV groove providing an atrial branch and terminating as a small distal vessel. There is diffuse mild plaque in the circumflex and its branches less than 20 to 30% stenosis. RCA: Medium to large caliber dominant vessel. Proximal segment with mild calcification and a long eccentric stenosis of up to 40%. The mid vessel has diffuse mild disease and mild calcification. Distally the vessel has minimal disease and bifurcates into a medium caliber PDA and a large multi branching posterolateral. These vessels have mild nonocclusive disease near the ostium and proximal portions. LVEF: 25 to 30% Inferior akinesis, moderate to severe global hypokinesis 2+ mitral regurgitation Cont BB Cont asa Cont plavix Cont statin (17) Hypomagnesemia: Plan: replaced resolved (18) DVT prophylaxis: Plan: lovenox daily (19) Hyperglycemia: Plan: she did receive IV solumedrol 125mg in the ER which likely contributed the effects of such should be resolved at this point the high values were suspicious for new onset T2DM but a1c returned <6% since she will cont on steroids for #1 above cont "diabetic" diet novolog SSI in the face of steroid use everything is c/w pre-diabetes with uncontrolled hyperglycemia in the setting of steroids & illness (20) Iron deficiency: Plan: Fe studies c/w Fe deficiency --- transferrin sat 7%, ferritin 26 this is concerning given her colon ca history consider IV Fe while here consider checking CEA Plan daughter - Dr Jennifer Tolentino - updated by phone this afternoon extensively patient severely ill today and fortunately turned around by late afternoon with more stable resp status multiple visits to pt's bedside care d/w speech therapy complex care coordination - total visitation time and care coordination time today about 90 minutes Admission and Anticipated Discharge Date Admission Date: February 05, 2023 Subjective tele overnight wnl except ectopy I was STAT paged in the early afternoon that patient was in significant respiratory distress upon arrival she was tachypneic, using accessory muscles, retracting, breathless, had severe hoarse voice, was actively cough oxymask had been placed by staff respiratory paged -- albuterol neb x 1 given STAT followed by duoneb x 1 STAT patient reports had normal night last pm without any distress awoke this am feeling ok ate good breakfast felt a little congested through the morning but no distress lunch - had meat and it "got stuck" in the mid esophagus - took a "while to go down" was drinking water via straw after lunch, then needed to use the bathroom nursing was called and after getting out of bed went into severe resp distress initial exam - SEVERE wheezing all lung segments; diffuse crackles right ant chest and right posterior chest; minimal rales bases; severe distress as above following nebs - wheezing improved, distress / retractions / accessory muscle use / tachypnea -- ALL IMPROVED STAT cxr obtained - my reading - infiltrates b/l bases a little worse EKG obtained - NSR, no ST changes - my reading patient reports that for several months she has had dysphagia for some solids with drinking liquids she has frequent sneezing, coughing, voice changes she often has a feeling of "things going down the wrong pipe" she stated she didn't give it much thought or attention she has noted intermittent wheezing "for months" and thought to herself "do I have asthma now?" she was given an inhaler in the past and has used it intermittently over the last few months she had an EGD when she lived in [facility] - can't remember the year was told she had stricture or stenosis and underwent dilatation was also hospitalized for PUD with bleeding years ago - [facility] ? [place] - has not seen neurology in quite some time - previously saw Dr Jamie Rutledge Neurology (now retired) Review of Systems Review of Systems: gen - no fevers or chills cv - no chest pain; did not have orthopnea overnight pulm - severe cough during and after her event today; severe dyspnea at rest with wheezing; severe BROUSSARD GI - no vomiting, no nausea, dysphagia as per HPI - with AM lasix today only put out <500cc Physical Exam Physical Exam: gen - severe distress with tachypnea, retractions, accessory muscle use, audible wheezing across the room, unable to talk in sentences; distress improved about 30-45 min later following serial nebs neck - no JVD today voice - VERY hoarse; she complains of discomfort in location of larynx; NO STRIDOR mouth - MMM heart - tachycardia, extra beats, s1 s2, 1-2/6 MARY LLSB lungs - extensive wheezes b/l, resp distress as above, prominent rales right lung, some rales left lung; after nebs & pulm toilet -- rales on right improved abd - soft NT ND BS+ ext - no edema, pulses 2+ b/l musculo - TMA of all 5 toes L foot psych - a/o x 3 Results & Data Results & Data Vital Signs (Past 12 Hours) Vital Signs Temp Pulse Resp BP Pulse Ox O2 Del Method O2 Flow Rate 02/06/23 14:45 89 28 H 98 Oxymask 4 02/06/23 11:53 36.6 C 83 18 144/88 H 98 Nasal Cannula 2 02/06/23 08:00 Nasal Cannula 2 02/06/23 08:07 36.6 C 77 18 107/66 98 Nasal Cannula 2 02/06/23 03:40 82 22 98 Nasal Cannula 2 02/06/23 03:09 36.4 C L 88 16 116/84 98 Nasal Cannula Laboratory Results Laboratory Results - last 24 hr 02/05/23 02/05/23 02/06/23 17:05 20:08 03:25 WBC 12.07 H RBC 3.96 L Hgb 11.3 L Hct 34.6 L MCV 87.4 MCH 28.5 MCHC 32.7 RDW Std Deviation 45.5 RDW Coeff of Aminah 14.2 Plt Count 183 MPV 12.5 H Sodium Potassium Chloride Carbon Dioxide Anion Gap BUN Creatinine Est Cr Clr Drug Dosing Est GFR ( Amer) Est GFR (Non-Af Amer) BUN/Creatinine Ratio Glucose POC Glucose 191 H 131 H Estimat Average Glucose Hemoglobin A1c Calcium Iron TIBC Unsaturated IBC Transferrin % Sat Ferritin Total Creatine Kinase 02/06/23 02/06/23 02/06/23 03:25 03:25 07:07 WBC RBC Hgb Hct MCV MCH MCHC RDW Std Deviation RDW Coeff of Aminah Plt Count MPV Sodium 137 Potassium 4.6 D Chloride 105 Carbon Dioxide 24 Anion Gap 8 BUN 35 H Creatinine 1.51 H D Est Cr Clr Drug Dosing 31.2 Est GFR ( Amer) 38.8 Est GFR (Non-Af Amer) 33.5 BUN/Creatinine Ratio 23.2 H Glucose 158 H POC Glucose 134 H Estimat Average Glucose 123 Hemoglobin A1c 5.9 H Calcium 9.1 Iron 24 L TIBC 351 Unsaturated IBC 327 Transferrin % Sat 7 L Ferritin 26.6 Total Creatine Kinase 66 02/06/23 10:53 WBC RBC Hgb Hct MCV MCH MCHC RDW Std Deviation RDW Coeff of Aminah Plt Count MPV Sodium Potassium Chloride Carbon Dioxide Anion Gap BUN Creatinine Est Cr Clr Drug Dosing Est GFR ( Amer) Est GFR (Non-Af Amer) BUN/Creatinine Ratio Glucose POC Glucose 145 H Estimat Average Glucose Hemoglobin A1c Calcium Iron TIBC Unsaturated IBC Transferrin % Sat Ferritin Total Creatine Kinase PG Care Time/CCT Total # of Minutes Spent Total Time Spent with Patient: Total time spent is greater than 50% in coordination of care (as documented) at patient's floor/unit and/or counseling patient: Prolonged Care Time Prolonged Care Time: Yes Total Prolonged Care Time: 90 Coding Level of Care Code 25801 SUB INP/OBS CARE 3/50MIN (25 - SIGNIFICANT, SEPARATELY IDENTIFIABLE ) Diagnoses Acute respiratory failure with hypoxia J96.01 Aspiration into lower respiratory tract T17.800A Dysphagia R13.10 Acute on chronic systolic heart failure I50.23 Elevated troponin R77.8 Dilated cardiomyopathy I42.0 Neuropathic ulcer of left foot L97.529 Multiple sclerosis G35 Graves disease E05.00 PAD (peripheral artery disease) I73.9 CKD (chronic kidney disease), stage III N18.30 HTN (hypertension) I10 History of colon cancer Z85.038 History of lobectomy of lung Z90.2 Myalgia M79.10 Nonobstructive atherosclerosis of coronary artery I25.10 Hypomagnesemia E83.42 DVT prophylaxis Z29.9 Hyperglycemia R73.9 Iron deficiency E61.1 Additional Codes Prolonged Care Time - Prolonged Care Time: Yes ([id number]) Time Spent (min) 90
--- NOTE | 2023-02-06 15:15 | XRay Report ---
XR chest 1V portable HISTORY: 77 years-old Female resp distress; aspiration event?? Dysphasia with acute shortness of reese ath COMPARISON: 02/05/2023 TECHNIQUE: AP view of the chest FINDINGS: Cardiac silhouette is enlarged. Atherosclerosis of the aorta. Trace pleural effusions with mild left basilar opacities. No pneumothorax. Pulmonary vascular congestion. Degenerative changes of the should ers and spine. IMPRESSION: 1. Cardiomegaly with pulmonary vascular congestion. 2. Trace pleural effusions with mild left basilar opacities favoring atelectasis. ACT 112: Negative or not required by law. The above report was generated using voice recognition software. It may contain grammatical, syntax o r spelling errors. Electronically signed by: Shamar Stovall M.D. 02/06/2023 3:14 PM
--- NOTE | 2023-02-06 17:12 | Electrocardiogram Report ---
Test Reason : Blood Pressure : / mmHG Vent. Rate : 083 BPM Atrial Rate : 083 BPM P-R Int : 142 ms QRS Dur : 086 ms QT Int : 370 ms P-R-T Axes : 065 061 095 degrees QTc Int : 434 ms Poor data quality, interpretation may be adversely affected Normal sinus rhythm Nonspecific ST abnormality When compared with ECG of 05-FEB-2023 02:06, UT interval has increased Confirmed by Erasmo Hoyt ([id number]) on 02/06/2023 5:11:51 PM Referred By: REFERRED SELF Confirmed By:Gautam Hoyt
[2023-02-06] MEDS: methylPREDNISolone 30 MG in SYRINGE 0 ML IV SCH (17:24)
[2023-02-06] MEDS: ALBUT/IPRATROP 3MG/0.5MG NEB 3 ML VIAL NEB SCH (19:43)
[2023-02-06] MEDS: ASPIRIN 81 MG ECTAB PO SCH (21:05)
[2023-02-06] MEDS: ATORVASTATIN 10 MG TAB PO SCH (21:05)
[2023-02-06] MEDS: PANTOprazole 40 MG in SYRINGE 0 ML IV SCH (21:06)
[2023-02-06] MEDS: traMADol HCL 50 MG TABLET PO PRN (21:08)
[2023-02-07] MEDS: methylPREDNISolone 30 MG in SYRINGE 0 ML IV SCH ×2 (04:38→17:42)
[2023-02-07 06:19] LABS: Hematocrit (blood only) 32.6 % (37.0-47.0); Hemoglobin 10.5 g/dl (12.0-16.0); Mean Corpuscular Hemoglobin 28.2 pg (25.0-34.0); Mean Corpuscular Hgb Conc 32.2 g/dL (32.0-36.0); Mean Corpuscular Volume 87.4 fL (80.0-100.0); Platelet Count 144 K/uL (130-400); RDW Coefficient of Variation 14.3 % (11.5-14.5); RDW Standard Deviation 45.7 fL (36.4-46.3); Red Blood Count 3.73 M/uL (4.20-5.40)
[2023-02-07 06:33] LABS: BUN Creatinine Ratio 28.4 (10-20); Est GFR (African American) 42.1 ml/min; Est GFR (Non-African American) 36.3 ml/min; Potassium 5.2 mmol/L (3.5-5.1)
[2023-02-07] MEDS: ALBUT/IPRATROP 3MG/0.5MG NEB 3 ML VIAL NEB SCH ×4 (07:18→18:58)
[2023-02-07] MEDS: INSULIN ASPART PER UNIT CHARGE SC SCH ×4 (08:23→20:59)
[2023-02-07] MEDS: AMANTADINE HCL 100 MG CAPSULE PO SCH ×2 (08:24→19:56)
[2023-02-07] MEDS: MONTELUKAST SODIUM 10 MG TABLET PO SCH (08:24)
[2023-02-07] MEDS: PANTOprazole 40 MG in SYRINGE 0 ML IV SCH ×2 (08:24→20:59)
[2023-02-07] MEDS: CLOPIDOGREL BISULFATE 75 MG TAB PO SCH (08:25)
[2023-02-07] MEDS: METOPROLOL SUCC 25MG EXT REL TAB PO SCH (08:25)
[2023-02-07] MEDS: ENOXAPARIN INJ 40 MG/0.4 ML SYR SQ SCH (08:25)
[2023-02-07] MEDS: CYANOCOBALAMIN (B-12) 500 MCG TABLET PO SCH (08:25)
[2023-02-07] MEDS: MULTIVITAMIN TAB PO SCH (08:25)
[2023-02-07 12:26] LABS: BUN Creatinine Ratio 28.9 (10-20); Calcium 9.4 mg/dl (8.6-10.3); Creatinine Clr Calc Pharmacy 32.2 ml/min; Est GFR (African American) 39.4 ml/min; Potassium 4.9 mmol/L (3.5-5.1)
--- NOTE | 2023-02-07 12:57 | Fluoroscopy Report ---
FL video swallow CLINICAL HISTORY: assess for aspiration TECHNIQUE: Video fluoroscopy of the pharyngeal region was performed as barium mixtures of varying con sistencies were administered to the patient by the speech pathologist. A formal esophagram was not pe rformed. Comparison: None available at the time of this dictation. FINDINGS: Total fluoroscopy time: 1.8 minutes. Radiation dose: 18.03 mGy. Dysmotility was seen. Penetration without aspiration was seen with thin liquids. Pooling of barium wa s noted in the bilateral piriform sinuses and valleculae. IMPRESSION: Penetration without evidence of aspiration with thin liquids. Please see the speech pathology report for further details. ACT 112: Negative or not required by law. Electronically signed by: Leonardo Mccullough M.D. 02/07/2023 12:36 PM
--- NOTE | 2023-02-07 16:18 | Cardiology Consultation ---
Date of Consultation February 07, 2023 Assessment & Plan (1) Nonobstructive atherosclerosis of coronary artery: Continue guideline directed medical therapy for secondary prevention utilizing aspirin 81 mg daily, a atorvastatin, Toprol-XL, and Entresto. Blood pressure and heart rate are currently at target so there is no need to change the dosages at this time. (2) Acute on chronic systolic heart failure: EF is essentially unchanged. I am not sure that the patient weighs himself maida ly but this is a critical tool in preventing heart failure readmission. She had not been requiring any loop diuretics as an outpatient. Continue IV Lasix 20 mg daily at this time until we achieve euvolemia. Then, she will likely require 20 to 40 mg p.o. daily at minimum to maintain euvolemia. We will also continue with her chronic heart failure regimen including Toprol-XL 25 mg daily and Entre sto 24/26 mg daily. I would avoid the use of amlodipine given its propensity for fluid retention. We need to identify a medication which she can take at home to control the occasional spikes in her blood pressure. Furthermore, it may have been the hypertension triggered the decompensated heart failure so improving blood pressure control is an important long-term goal. We may need to consider a long-acting nitrate or the use of hydralazine. I would also favor the addition of an SGLT2 inhibitor and/or spironolactone. The diuretic may be an issue given her renal function. We previously had recommended a wearable defibrillator and possible ICD. After a brief trial she and the family decided against a wearable defibrillator. (3) PVCs (premature ventricular contractions): This may certainly be contributing to her reduced EF. I will discuss possible PVC ablation. For now, we are trying to control this with her beta-eusebia. (4) Atherogenic dyslipidemia: Patient is high risk. She is on a atorvastatin 10 mg daily. We will titrate this to achieve target LDL reduction. History of Present Illness Reason for Consultation: Congestive heart failure Attending Physician: Tosha Renteria MD History of Present Illness 77-year-old female with a known history of dilated cardiomyopathy, nonocclusive coronary disease, moderate mitral regurgitation, and chronic kidney disease stage III presented with worsening shortness of breath and chest tightness. This actually had been ongoing for several days prior to admission. Her daughter (who is a physician) noted that the patient's blood pressure had been very elevated and the patient decided to take her amlodipine. This medication had recently been discontinued in favor of a heart failure regimen. The blood pressure did improve somewhat but the dyspnea worsened. She was subsequently brought to the emergency department and admitted for congestive heart failure. She has been placed on IV Lasix and a swallow study was performed to evaluate for evidence of aspiration. Patient has a history of esophageal stricture and dilatation. She tells me that she has been feeling fullness in her throat after eating and had mentioned to her family that maybe she was having more stricture. She also admits that she had been having shortness of breath for far longer than what her daughter was aware of but she never mentioned it to her. She did not experience significant lower extremity edema. She denies any anginal type chest pain, syncope, near syncope, PND, racing heartbeat, or palpitations. Echocardiogram was performed on this admission demonstrating EF of 30 to 35%, moderate mitral regurgitation, mild tricuspid regurgitation. Compared to a prior echo which was of poor quality the EF is worse. However, she also had a catheterization between the 2 studies which confirmed low EF by left ventriculogram (25 to 30%) and also confirmed moderate mitral regurgitation. On catheterization she had only mild nonocclusive disease with 40 to 50% stenosis in the LAD, 20 to 30% stenosis in the circumflex, and 40% stenosis in the RCA. Also of note the patient had previous cardiac monitoring demonstrating a high frequency of PVCs and brief (3-5 beats) runs of nonsustained ventricular tachycardia. Patient does admit to mild shortness of breath at rest, dyspnea on exertion, orthopnea, and trace bilateral lower extremity edema. Since her admission and initiation of IV Lasix she states that her breathing is better although not back to normal. The swallowing study demonstrated "penetration" but no clear evidence of aspiration. There was dysmotility in the esophagus. She denies any fevers, chills, or bleeding. No other pertinent complaints at this time. Allergies Allergy/AdvReac Type Severity Reaction Status Date / Time adhesive Allergy Intermediate SKIN Verified 02/04/23 22:50 BLISTERS, LOSES SKIN HERE AND THERE sulfamethoxazole AdvReac Severe CAUSED A Verified 02/04/23 22:50 [From Bactrim] PNEUMONITIS PER PT'S DAUGHTER trimethoprim [From Bactrim] AdvReac Severe CAUSED A Verified 02/04/23 22:50 PNEUMONITIS PER PT'S DAUGHTER amoxicillin [From Augmentin] AdvReac Intermediate Diarrhea Verified 02/04/23 22:50 clavulanic acid AdvReac Intermediate Diarrhea Verified 02/04/23 22:50 [From Augmentin] PAPER TAPE Allergy Intermediate SKIN Uncoded 02/04/23 22:50 BLISTERS, LOSES SKIN HERE AND THERE Home Medications Medication Instructions Recorded Confirmed Type aspirin 81 mg tablet,delayed 81 mg PO HS 03/31/22 02/04/23 History release (Adult Low Dose Aspirin) naproxen sodium 220 mg capsule 220 mg PO DIRECTED PRN Pain 04/06/22 02/04/23 History (Aleve) amantadine HCl 100 mg capsule 100 mg PO BID #180 caps 08/24/22 02/04/23 Rx clopidogrel 75 mg tablet (Plavix) 75 mg PO QAM #90 tabs 08/24/22 02/04/23 Rx omeprazole 20 mg capsule,delayed 20 mg PO QAM #90 caps 08/26/22 02/04/23 Rx release multivitamin 1 tab PO DAILY 11/08/22 02/04/23 History atorvastatin 10 mg tablet 10 mg PO QPM #30 tabs 12/21/22 02/04/23 Rx cyanocobalamin (vitamin B-12) 1,000 mcg PO DAILY 12/21/22 02/04/23 History 1,000 mcg tablet (Vitamin B-12) metoprolol succinate 25 mg 25 mg PO DAILY #30 tabs 01/03/23 02/04/23 Rx tablet,extended release 24 hr montelukast 10 mg tablet 10 mg PO DAILY 01/12/23 02/04/23 History oxycodone-acetaminophen 5 mg-325 1 tab PO DAILY PRN pain #60 tabs 01/19/23 02/04/23 Rx mg tablet (Percocet) sacubitril 24 mg-valsartan 26 mg 1 tab PO DAILY 01/19/23 02/04/23 History tablet (Entresto) albuterol sulfate 90 mcg/actuation 1 puff inhalation .Q4-6HR PRN 02/04/23 02/04/23 History aerosol inhaler Wheezing Patient History Medical History Acid reflux HX Arthritis Graves disease RADIOACTIVE IODINE History of bleeding ulcers REMOTE HX History of blood clots LEGS/REASON FOR BLOOD THINNER...NO CLOTS SINCE ON BLOOD THINNER History of colon cancer 4-5 YR AGO/SX INTERVENTION History of kidney stones HTN (hypertension) Multiple sclerosis Neuropathy Peripheral vascular disease Toe infection ABX TX FINISHED LAST WEEK - LEFT FOOT - INFECTION IS NOT CLEARED UP / REASON FOR UPCOMING PROCEDURE Surgical History History of bowel resection FOR COLON CA 4-5 YR AGO History of cholecystectomy History of colonoscopy History of endoscopy History of hysterectomy History of lobectomy of lung LEFT LOWER LOBE PARTIAL History of shoulder surgery History of toe surgery JANUARY 2022 - [facility]/2 TOES REMOVED History of vascular surgery STENTS BOTH FEMORALS , MULTIPLE , HX CLOTTING AFTERWARDS ...AORTIC BI FEMORAL BYPASS History of vascular surgery AORTIC BI FEMORAL BYPASS PER PT Family History Mother Family history of diabetes mellitus Aunt Family history of diabetes mellitus Sister Family history of diabetes mellitus Sister Family history of diabetes mellitus Uncle Family history of diabetes mellitus Uncle Family history of esophageal cancer Social History Smoking Status: Former smoker Tobacco Type: E-cigarettes / Vaping Cigarettes Per Day: VAPE DAILY /ADVISED NPO; Smoking End Date: quit 1 year ago, was 1 ppw; Do You Dip or Chew Tobacco: No; Hx Alcohol Use: No Hx Substance Use: No Preferred Language: Danish Communication Ability: Effective Visual Impairment: Limited Hearing Ability: Use of Hearing Aid Shrimp Picker Required: No Beliefs That Will Affect Care: None Current Living Situation: Alone Current Living Situation Comment: daughter checks on her daily and helps with ADLs as needed Other Information That Helps Us Care for You: No Feels Safe at Home: Yes Safety Concerns: Feels Safe At This Time Diet: regular caffeine: Yes Assistive Devices: Cane, Denture - Upper, Glasses, Walker and Wheelchair Review of Systems Review of Systems: Patient was having a cough which is slightly improved and has been ongoing for weeks. Her infection panel was unremarkable. No major viral infections noted. The remainder of her 12 point review of systems is negative except as per HPI Physical Exam Constitutional: Awake, alert, oriented obese elderly female. No acute distress. Wearing facemask. Mild respiratory distress with speech. Eyes: Extraocular muscles intact. Sclera are anicteric. ENMT: Oral mucosa is pink moist and intact Neck: JVD 7 to 8 cm Respiratory: Dullness left base. Diffuse mild crackles. Poor air movement. No wheezing or rhonchi. Cardiovascular: Regular rate and rhythm. Grade 2 out of 6 systolic murmur. S4 gallop. PMI displaced towards the left axilla. No lower extremity edema. Musculoskeletal: no cyanosis or clubbing, extremities motor strength 5/5 Neurologic: Cognition is intact. Speech is fluent. No focal deficits noted. No tremor. Psychiatric: A+Ox3, euthymic affect Results & Data Vital Signs (Past 12 Hours) Vital Signs Temp Pulse Pulse Resp BP Pulse Ox O2 Del Method 02/07/23 15:58 37.0 C 100 H 20 136/73 96 Oxymask 02/07/23 15:14 86 18 97 Oxymask 02/07/23 07:00 74 02/07/23 12:08 36.9 C 90 18 127/74 98 Oxymask 02/07/23 08:00 Oxymask 02/07/23 07:44 36.8 C 77 20 135/79 97 Nasal Cannula 02/07/23 07:19 83 18 96 Oxymask O2 Flow Rate 02/07/23 15:58 3 02/07/23 15:14 3 02/07/23 07:00 02/07/23 12:08 3 02/07/23 08:00 3 02/07/23 07:44 3 02/07/23 07:19 3 PG Care Time/CCT Total # of Minutes Spent Total Time Spent with Patient: Total time spent is greater than 50% in coordination of care (as documented) at patient's floor/unit and/or counseling patient: [place] [address] IN/OBS CONSULT LVL 5,80M Patient Type New Diagnoses Nonobstructive atherosclerosis of coronary artery I25.10 Acute on chronic systolic heart failure I50.23 PVCs (premature ventricular contractions) I49.3 Atherogenic dyslipidemia E78.5
[2023-02-07] MEDS ORDERED: FUROSEMIDE INJ 20 MG/2 ML VIAL IV ONE (18:04)
--- NOTE | 2023-02-07 18:29 | Hospitalist Progress Note ---
Date of Service February 07, 2023 Assessment & Plan (1) Acute on chronic systolic heart failure: Plan: EF 45-50% on echo 11/2022 Cardiac cath - 12/29/22 - EF 25-30% repeat echo this admission - EF 30-35% s/p multiple doses of lasix IV since admission Lasix was held when creatinine loretta, but we will give another dose today as creatinine stable from yesterday at 1.4 Remains on 3 L nasal cannula cont metoprolol succinate 25mg daily resume Entresto when able cards consult [place] [facility] [place] requested for any other recs suspect that dietary indiscretion played a large role in decompensation reordering clerk to see to give nutritional counseling will likely need low-dose lasix at discharge -Consider SGLT2 and Aldactone if renal function will allow Follow BMP (2) Acute respiratory failure with hypoxia: Plan: SEVERE respiratory event on 02/06 that was sudden/abrupt following drinking water with a straw. She reports overt aspiration signs/symptoms with liquids for many months. Dys phagia for solids as well Distress improved with aggressive pulm toilet and bronchodilators. STAT cxr without overt pneumonitis although infiltrates in the bases remain. Has not had any fever since then, but remains on 3 L nasal cannula Placed on solumedrol 30mg IV BID for severe wheezing, but will now discontinue to prevent fluid retention given her CHF Continue schedule duonebs qid. Add on Breo Ellipta Speech therapy for follow-up she did not show any aspiration but did show esophageal dysmotility Follow-up with GI as an outpatient if desired for esophageal dysmotility- discussed with patient and her daughter Initially also had respiratory failure on admission from CHF (3) Aspiration into lower respiratory tract: Plan: As above (4) Elevated troponin: Plan: mild HS trop elevation 2nd to hypoxia and CHF exacerbation had heart cath about 1 month ago - nonobstructive CAD only (5) Dilated cardiomyopathy: Plan: etiology of CHF?? 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 other? defer w/u to cardiology - follows with Dr Santa (6) Neuropathic ulcer of left foot: Plan: cont Aquacel and overlying dressing per the instructions listed in most recent [facility]ound [facility] note wound care consult requested (7) Multiple sclerosis: Plan: noted established dx cont amantadine previously followed by Dr Geovanna Rutledge Neurology see above re: dysphagia (8) Graves disease: Plan: TSH 11/2022 wnl h/o Graves s/p radioactive iodine ablation many years ago (9) PAD (peripheral artery disease): Plan: noted cont statin cont plavix cont asa (10) CKD (chronic kidney disease), stage III: Plan: stage 3b creatinine loretta overnight in face of diuresis but now remained stable at 1.4 Okay to give Lasix 20 Mg IV x1 today daily BMP (11) HTN (hypertension): Plan: BPs controlled cont metoprolol resume Entresto when able (12) History of colon cancer: Plan: noted s/p resection checked Fe studies given her chronic myalgias/cramps - she is Fe deficient - see below (13) History of lobectomy of lung: Plan: LLL 2nd to pulmonary nodule this was NON-cancerous by her report (14) Myalgia: Plan: Fe studies c/w Fe def which could be contributing TSH wnl B12 [id number] in late 2021 CPK wnl (15) Nonobstructive atherosclerosis of coronary artery: Plan: 12/[address] Santa -- Coronary angiography findings: LMT: Large-caliber vessel bifurcating into LAD and left circumflex. No angiographically significant disease. LAD: Large caliber and transapical vessel. Proximal segment with mild disease. Then at the level of the first septal but before the first diagonal there is a long eccentric stenosis of 40 to 50%. First diagonal is medium to large in caliber and branching. The mid and distal LAD provides additional septal branches and some small diagonal branches. There is no more than mild luminal irregularities in the remainder of the LAD and its branches. LCx: Large caliber and nondominant vessel. High arising small caliber OM1 followed by a large caliber multi branching OM 2. The AV groove vessel then becomes medium in caliber as it travels to the AV groove providing an atrial branch and terminating as a small distal vessel. There is diffuse mild plaque in the circumflex and its branches less than 20 to 30% stenosis. RCA: Medium to large caliber dominant vessel. Proximal segment with mild calcification and a long eccentric stenosis of up to 40%. The mid vessel has diffuse mild disease and mild calcification. Distally the vessel has minimal disease and bifurcates into a medium caliber PDA and a large multi branching posterolateral. These vessels have mild nonocclusive disease near the ostium and proximal portions. LVEF: 25 to 30% Inferior akinesis, moderate to severe global hypokinesis 2+ mitral regurgitation Cont BB Cont asa Cont plavix Cont statin but cardiology recommends increasing high intensity dose-changed to 40 Mg of atorvastatin Given stable angina with exertion, will discuss with cardiology about addition of isosorbide which she has been on before and tolerated (16) Hyperglycemia: Plan: she did receive IV solumedrol 125mg in the ER which likely contributed the effects of such should be resolved at this point the high values were suspicious for new onset T2DM but a1c returned <6% since she will cont on steroids for #1 above cont "diabetic" diet novolog SSI in the face of steroid use everything is c/w pre-diabetes with uncontrolled hyperglycemia in the setting of steroids & illness (17) Iron deficiency: Plan: Fe studies c/w Fe deficiency --- transferrin sat 7%, ferritin 26 this is concerning given her colon ca history We will give IV Fe while here consider checking CEA Follow-up with GI as an outpatient Plan daughter - Dr Jennifer Tolentino - updated at the bedside today Disposition-continued stay in PCU Admission and Anticipated Discharge Date Admission Date: February 05, 2023 Subjective Patient feeling much better today and asking about when she can go home. She st ill remains quite dyspneic with exertion such as walking back from the bathroom and also has chest pressure that comes along with walking these distances. Her daughter who is a physician inquires about nitrates for her stable angina. Telemetry with normal sinus rhythm, rates in 70s to 90s, multiple PVCs, PACs, and several 2-3 beat runs of VT and an 8-second run of PAT. Physical Exam Constitutional: WD/WN, vitals as above Respiratory: + tachypneic (After walking back from the bathroom) Auscultation: + crackles (Bibasilar) and + wheezes (Bilateral end expiratory wheezes); no rhonchi Cardiovascular: Rate/Rhythm: regular rate and regular rhythm Heart Sounds: no murmur Vessels: dorsalis pedis pulses present Extremities: no edema Gastrointestinal (Abdomen): normal bowel sounds, soft, nontender, no hepatosplenomegaly Musculoskeletal: Extremities: + extremities abnormal to inspection (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) Results & Data Results & Data Vital Signs (Past 12 Hours) Vital Signs Temp Pulse Pulse Resp BP Pulse Ox O2 Del Method 02/07/23 18:12 76 02/07/23 15:58 37.0 C 100 H 20 136/73 96 Oxymask 02/07/23 15:14 86 18 97 Oxymask 02/07/23 07:00 74 02/07/23 12:08 36.9 C 90 18 127/74 98 Oxymask 02/07/23 08:00 Oxymask 02/07/23 07:44 36.8 C 77 20 135/79 97 Nasal Cannula 02/07/23 07:19 83 18 96 Oxymask O2 Flow Rate 02/07/23 18:12 02/07/23 15:58 3 02/07/23 15:14 3 02/07/23 07:00 02/07/23 12:08 3 02/07/23 08:00 3 02/07/23 07:44 3 02/07/23 07:19 3 Laboratory Results CBC, BMP reviewed, blood cultures-no growth to date PG Care Time/CCT Total # of Minutes Spent Total Time Spent with Patient: Total time spent is greater than 50% in coordination of care (as documented) at patient's floor/unit and/or counseling patient: Coding Level of Care Code 25125 SUB INP/OBS CARE 3/50MIN Diagnoses Acute on chronic systolic heart failure I50.23 Acute respiratory failure with hypoxia J96.01 Aspiration into lower respiratory tract T17.800A Elevated troponin R77.8 Dilated cardiomyopathy I42.0 Neuropathic ulcer of left foot L97.529 Multiple sclerosis G35 Graves disease E05.00 PAD (peripheral artery disease) I73.9 CKD (chronic kidney disease), stage III N18.30 HTN (hypertension) I10 History of colon cancer Z85.038 History of lobectomy of lung Z90.2 Myalgia M79.10 Nonobstructive atherosclerosis of coronary artery I25.10 Hyperglycemia R73.9 Iron deficiency E61.1
[2023-02-07] MEDS ORDERED: IRON SUCROSE 300 MG in SODIUM CHLORIDE 0.9% 250 ML IV SCH (19:00)
[2023-02-07] MEDS: FLUTICASONE/VILANTEROL 200/25MCG 14 PUFFS/INHALER INH SCH (19:40)
[2023-02-07] MEDS: ASPIRIN 81 MG ECTAB PO SCH (19:56)
[2023-02-07] MEDS: traMADol HCL 50 MG TABLET PO PRN (20:58)
[2023-02-07] MEDS ORDERED: ATORVASTATIN 40 MG TAB PO SCH (21:00)
[2023-02-08 06:56] LABS: Hemoglobin 10.6 g/dl (12.0-16.0); Immature Granulocytes # (auto) 0.05 K/uL (0.01-0.20); Immature Granulocytes % (auto) 0.6 %; Lymphocytes # (auto) 0.45 K/uL (1.2-3.4); Lymphocytes % (auto) 5.3 %; Mean Corpuscular Hemoglobin 28.5 pg (25.0-34.0); Mean Corpuscular Hgb Conc 32.1 g/dL (32.0-36.0); Mean Corpuscular Volume 88.7 fL (80.0-100.0); Mean Platelet Volume 12.3 fL (9.4-12.4); Monocytes % (auto) 4.7 %; Neutrophils # (auto) 7.54 K/uL (1.40-6.50); Neutrophils % (auto) 89.4 %; Platelet Count 163 K/uL (130-400); RDW Coefficient of Variation 14.1 % (11.5-14.5); RDW Standard Deviation 45.4 fL (36.4-46.3); Red Blood Count 3.72 M/uL (4.20-5.40); White Blood Count 8.44 K/ul (4.8-10.8)
[2023-02-08 07:08] LABS: BUN Creatinine Ratio 30.6 (10-20); Calcium 9.2 mg/dl (8.6-10.3); Creatinine Clr Calc Pharmacy 30.2 ml/min; Est GFR (Non-African American) 31.9 ml/min; Magnesium 2.1 mg/dl (1.7-2.4); Potassium 4.4 mmol/L (3.5-5.1)
[2023-02-08] MEDS: ALBUT/IPRATROP 3MG/0.5MG NEB 3 ML VIAL NEB SCH ×3 (07:33→15:42)
[2023-02-08] MEDS: INSULIN ASPART PER UNIT CHARGE SC SCH ×2 (09:03→12:28)
[2023-02-08] MEDS: CLOPIDOGREL BISULFATE 75 MG TAB PO SCH (09:07)
[2023-02-08] MEDS: CYANOCOBALAMIN (B-12) 500 MCG TABLET PO SCH (09:07)
[2023-02-08] MEDS: PANTOprazole 40 MG in SYRINGE 0 ML IV SCH (09:07)
[2023-02-08] MEDS: AMANTADINE HCL 100 MG CAPSULE PO SCH (09:07)
[2023-02-08] MEDS: ENOXAPARIN INJ 40 MG/0.4 ML SYR SQ SCH (09:08)
[2023-02-08] MEDS: METOPROLOL SUCC 25MG EXT REL TAB PO SCH (09:08)
[2023-02-08] MEDS: FLUTICASONE/VILANTEROL 200/25MCG 14 PUFFS/INHALER INH SCH (09:08)
[2023-02-08] MEDS: MULTIVITAMIN TAB PO SCH (09:09)
[2023-02-08] MEDS: MONTELUKAST SODIUM 10 MG TABLET PO SCH (09:09)
[2023-02-08] MEDS ORDERED: ISOSORBIDE MONO EXTENDED REL 30 MG TABCR PO SCH (12:15)
[2023-02-08] MEDS ORDERED: FUROSEMIDE 20 MG TAB PO SCH (12:15)
--- NOTE | 2023-02-08 15:35 | Discharge Summary ---
Discharge Summary Date of Service February 08, 2023 Notes For Next Care Provider Add Entresto back on if possible depending on renal function and blood pressure. Add on SGLT-2i if possible. Needs f/u on iron deficiency anemia Admission HPI Per Admitting Provider 77yo Female with PMH dilated cardiomyopathy, HLD, HTN, CKD3, MS, CAD, PAD, hx colon cancer s/p bowel resection, LLL resection, neuropathy here for worsening SOB found to have CHF exacerbation. Patient states on night into monday she noted a cough, later progressed to increased SOB getting out of her chair walking across the room, she tried her inhaler it did help her symptoms. Today she noted SOB even while at rest, her daughter encouraged her to go to ED for concern pneumonia or heart failure. She describes mild nausea. SOB was worse laying down, she was sleeping propped on several pillows. In ED patient was tolerating room air, she tried to lay down and became hypoxic tachypnic was placed on BIPAP given lasix 20mg IV, also given breathing treatment levalbuterol and IV methylprednisolone, states her breathing improved. Patient states she has been eating out the past monday at [employer]. States she does not follow any particular diet, loves her sweets. She denies alcohol, has smoked about 8pk year history (60 years 1 pk a week) quit smoking last year due to housing restrictions. She has noted a 30lbs weight gain since last year that she attributes due to her diet and physical inactivity. She is not on diuretics. Patient was recently diagnosed with dilated cardiomyopathy after cardiac cath this year, believes it is due to her other daughter's this past year. Patient states her daughter is a physician and helps her with medication, daughter is POA. 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 cont metoprolol succinate 25mg daily resume Entresto when able as outpt cards consult with Dr Santa from [facility] Cardiology requested for any other recs add isosorbide back on for stableangina dc to home on lasix 20mg po daily f/u CHF clinic suspect that dietary indiscretion played a large role in decompensation 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 She reports overt aspiration signs/symptoms with liquids for many months. Dysphagia for solids as well Distress improved with aggressive pulm toilet and bronchodilators. STAT cxr without overt pneumonitis although infiltrates in the bases remain. Has not had any fever since then, and now weaned off O2 except POx 85% with exertion on 2 step walk test, required to REST and take multiple deep breaths to get POx to recover-needs 2L O2 Placed on solumedrol 30mg IV BID for severe wheezing, but then discontinued to prevent fluid retention given her CHF received scheduled duonebs qid. Added on Breo Ellipta Speech therapy for follow-up she did not show any aspiration but did show esophageal dysmotility Follow-up with GI as an outpatient if desired for esophageal dysmotility- discussed with patient and her daughter Initially also had respiratory failure on admission from CHF (3) Aspiration into lower respiratory tract: As above (4) Elevated troponin: mild HS trop elevation 2nd to hypoxia and CHF exacerbation had heart cath about 1 month ago - nonobstructive CAD only (5) Dilated cardiomyopathy: etiology of CHF?? 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 other? defer w/u to cardiology - follows with Dr Santa (6) Neuropathic ulcer of left foot: cont Aquacel and overlying dressing per the instructions listed in most recent Wound Care Clinic note wound care consult requested (7) Multiple sclerosis: noted established dx cont amantadine previously followed by Dr Geovanna Rutledge Neurology see above re: dysphagia (8) Graves disease: TSH 11/2022 wnl h/o Graves s/p radioactive iodine ablation many years ago (9) PAD (peripheral artery disease): noted cont statin cont plavix cont asa (10) CKD (chronic kidney disease), stage III: stage 3b creatinine loretta overnight in face of diuresis but now remained stable at 1.5 follow as outpt (11) HTN (hypertension): BPs controlled cont metoprolol resume Entresto when able as outpt (12) History of colon cancer: noted s/p resection checked Fe studies given her chronic myalgias/cramps - she is Fe deficient - see below (13) History of lobectomy of lung: LLL 2nd to pulmonary nodule this was NON-cancerous by her report (14) Myalgia: Fe studies c/w Fe def which could be contributing TSH wnl B12 [id number] in late 2021 CPK wnl (15) Nonobstructive atherosclerosis of coronary artery: 12/[address] Santa -- Coronary angiography findings: LMT: Large-caliber vessel bifurcating into LAD and left circumflex. No angiographically significant disease. LAD: Large caliber and transapical vessel. Proximal segment with mild disease. Then at the level of the first septal but before the first diagonal there is a long eccentric stenosis of 40 to 50%. First diagonal is medium to large in caliber and branching. The mid and distal LAD provides additional septal branches and some small diagonal branches. There is no more than mild luminal irregularities in the remainder of the LAD and its branches. LCx: Large caliber and nondominant vessel. High arising small caliber OM1 followed by a large caliber multi branching OM 2. The AV groove vessel then becomes medium in caliber as it travels to the AV groove providing an atrial branch and terminating as a small distal vessel. There is diffuse mild plaque in the circumflex and its branches less than 20 to 30% stenosis. RCA: Medium to large caliber dominant vessel. Proximal segment with mild calcification and a long eccentric stenosis of up to 40%. The mid vessel has diffuse mild disease and mild calcification. Distally the vessel has minimal disease and bifurcates into a medium caliber PDA and a large multi branching posterolateral. These vessels have mild nonocclusive disease near the ostium and proximal portions. LVEF: 25 to 30% Inferior akinesis, moderate to severe global hypokinesis 2+ mitral regurgitation Cont BB Cont asa Cont plavix Cont statin but cardiology recommends increasing high intensity dose-changed to 40 Mg of atorvastatin Given stable angina with exertion,discussed with cardiology about addition of isosorbide which she has been on before and tolerated-agrees to add on 30mg daily (16) Hyperglycemia: she did receive IV solumedrol 125mg in the ER which likely contributed the effects of such should be resolved at this point the high values were suspicious for new onset T2DM but a1c returned <6% since she will cont on steroids for #1 above cont "diabetic" diet novolog SSI in the face of steroid use everything is c/w pre-diabetes with uncontrolled hyperglycemia in the setting of steroids & illness (17) Iron deficiency: Fe studies c/w Fe deficiency --- transferrin sat 7%, ferritin 26 this is concerning given her colon ca history gave IV Fe while here consider checking CEA as outpt Follow-up with GI and PCP as an outpatient Plan daughter - Jennifer Rajan - updated at the bedside today Disposition-dc to home Discharge Exam Constitutional WD/WN, vitals as above Respiratory Auscultation: + crackles (Bibasilar); no rhonchi and no wheezes Cardiovascular Rate/Rhythm: regular rate and regular rhythm Heart Sounds: no murmur Vessels: dorsalis pedis pulses present Extremities: no edema Gastrointestinal (Abdomen) normal bowel sounds, soft, nontender, no hepatosplenomegaly Musculoskeletal Extremities: + extremities abnormal to inspection (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) Updated Medication List Medication Instructions Recorded Confirmed Type aspirin 81 mg tablet,delayed 81 mg PO HS 03/31/22 02/04/23 History release (Adult Low Dose Aspirin) naproxen sodium 220 mg capsule 220 mg PO DIRECTED PRN Pain 04/06/22 02/04/23 History (Aleve) amantadine HCl 100 mg capsule 100 mg PO BID #180 caps 08/24/22 02/04/23 Rx clopidogrel 75 mg tablet (Plavix) 75 mg PO QAM #90 tabs 08/24/22 02/04/23 Rx omeprazole 20 mg capsule,delayed 20 mg PO QAM #90 caps 08/26/22 02/04/23 Rx release multivitamin 1 tab PO DAILY 11/08/22 02/04/23 History atorvastatin 10 mg tablet 10 mg PO QPM #30 tabs 12/21/22 02/04/23 Rx cyanocobalamin (vitamin B-12) 1,000 mcg PO DAILY 12/21/22 02/04/23 History 1,000 mcg tablet (Vitamin B-12) metoprolol succinate 25 mg 25 mg PO DAILY #30 tabs 01/03/23 02/04/23 Rx tablet,extended release 24 hr montelukast 10 mg tablet 10 mg PO DAILY 01/12/23 02/04/23 History oxycodone-acetaminophen 5 mg-325 1 tab PO DAILY PRN pain #60 tabs 01/19/23 02/04/23 Rx mg tablet (Percocet) sacubitril 24 mg-valsartan 26 mg 1 tab PO DAILY 01/19/23 02/04/23 History tablet (Entresto) albuterol sulfate 90 mcg/actuation 1 puff inhalation .Q4-6HR PRN 02/04/23 02/04/23 History aerosol inhaler Wheezing atorvastatin 40 mg tablet 40 mg PO QPM #30 tabs 02/08/23 Rx furosemide 20 mg tablet 20 mg PO QAM #30 tabs 02/08/23 Rx isosorbide mononitrate 30 mg 30 mg PO QAM #30 tabs 02/08/23 Rx tablet,extended release 24 hr Hospital Stay Data Consultations 02/05/23 01:31 ED Decision to Admit Stat 02/07/23 09:13 Consult Cardiology Routine 02/08/23 15:29 [facility] CHF Program Referral Routine Diagnostic Imagining Performed 02/07/23 11:30 FL video swallow Routine ECHO Pending Results Patient Have Any Pending Studies at Discharge: No Discharge Instructions Given to Patient (Per Discharging Provider) You were started on lasix as a water pill and isosorbide for your chest pain. Ms. Peters at the CHF clinic will keep tabs on your kidney function and heart failure symptoms once you leave the hospital. Your oxygen level did drop to 85% with walking and you will need 2L of oxygen via nasal cannula when you walk around. You were also given IV iron while you were here. Please follow up with your PCP given the iron deficiency. You have esophageal dysmotility contributing to some of your aspiration issues. Please follow up with your GI doctor after discharge for this. Call your Primary Care doctor if any of the following symptoms or problems start or get worse: * Shortness of breath or difficulty breathing * Wake up at night short of breath * Chest pain * Cough * Swelling of your hands, feet, or legs * More fatigued or tired with your normal activity * Palpitations - sudden fast heart beats WEIGHT * Weigh yourself every morning after using the bathroom. * Use the same scale. * Wear the same amount of clothing. * Write your weight down on a chart. * Call your Primary Care doctor if you gain more than 2-3 pounds in 1-2 days. MEDICATIONS * Use this discharge instruction sheet for medication instructions. * Take your medications at the time your doctor ordered. * Do not skip a dose of your medicines. * If you miss a dose of medicine, take it as soon as possible, but DO NOT DOUBLE A DOSE. * Read your medicine information when you get home. * Know all of the side effects of your medicine. If in doubt, ask your pharmacist * Call your Primary Care doctor's office if you have any side effects. * Be sure all of your doctors know what medicine and herbs you take (including cold, flu, and herbal medicine). Take the following with you to your follow-up doctor appointments: * Weight Chart * Medication List * List of questions Do not drink excessive alcohol, beer or wine. Total Time Total Time Spent Total Time Spent (In Minutes): 40 min Coding Level of Care Code 17121 INP/OBS DISCH >30 MIN Diagnoses Acute on chronic systolic heart failure I50.23 Acute respiratory failure with hypoxia J96.01 Aspiration into lower respiratory tract T17.800A Elevated troponin R77.8 Dilated cardiomyopathy I42.0 Neuropathic ulcer of left foot L97.529 Multiple sclerosis G35 Graves disease E05.00 PAD (peripheral artery disease) I73.9 CKD (chronic kidney disease), stage III N18.30 HTN (hypertension) I10 History of colon cancer Z85.038 History of lobectomy of lung Z90.2 Myalgia M79.10 Nonobstructive atherosclerosis of coronary artery I25.10 Hyperglycemia R73.9 Iron deficiency E61.1
== END 2023-02-08 16:16 | disposition home health service (06) | DRG 291 ==
LOC: ED 22:00 → 4W 02-05 02:12 → SUATTDRO 02-05 02:12 → 4W 02-05 03:10

== ENCOUNTER 2025-01-09 19:07 | Inpatient (IN) ==
--- NOTE | 2025-01-09 19:31 | Emergency Department Note ---
Impression & Plan Fracture tibia/fibula Admission ED Provider Note HPI: History obtained from patient. The patient is a 79-year-old female with history of heart failure with reduced ejection fraction, cardiomyopathy, coronary artery disease, stage III chronic kidney disease, peripheral vascular disease, presents to the emergency department as an injury alert with chief complaint of right ankle pain after an injury at home. Patient states that she was bending down to get something out of a cabinet and she put her knee onto a sliding stool that gave out and then she believes she twisted her right leg awkwardly and she felt a "snap "in the area of her right ankle. On arrival here to the ED the patient has motor function intact distally in the right lower extremity without any evidence of cyanosis or open fracture. Patient denies any other focal complaint of pain. Patient otherwise appears to be in no acute distress. ROS: - Per HPI Differential Diagnosis: Fracture of the tibia/fibula, calcaneal fracture, ankle sprain, ankle dislocation, knee fracture/tibial plateau fracture, amongst other potential pathologies. *Outpatient medications and allergy history reviewed. PRIMARY SURVEY: Airway-intact, patient speaks in full sentences Respiratory-clear bilateral breath sounds Circulation-2+ DP pulses bilaterally, 2+ radial pulses bilaterally Neurologic-patient is alert Exposure-no evidence of any open wounds or lacerations PE: General: Alert, no acute distress HEENT: Normocephalic, trachea midline Eyes: Extraocular eye movement is intact, no scleral erythema Pulmonary: Clear to auscultation bilaterally, no wheezing Cardio: Regular rate and rhythm GI: Abdomen is soft to palpation : No suprapubic tenderness MSK:, 2+ DP pulses bilaterally, the right lower extremity has a central contusion with mild noted deformity in the area of the mid anterior tibia without any skin tenting or open lacerations/wounds, motor and sensory function is intact distally in the right foot Skin: No evidence of rash Neuro: Alert, no focal deficits Psychiatric: Cooperative INDEPENDENT INTERPRETATIONS: cafeteria monitor: (As interpreted by myself): - An order was placed for continuous cardiac monitoring - Patient was noted to be in sinus rhythm with a rate of 70 Interventions provided in ED: - IV fentanyl Medical Decision Making: IV was established and lab work obtained, patient was placed on vehicle monitor technician. X-ray imaging of the right lower extremity shows evidence of spiral fracture of the distal right tibia as well as a fracture of the proximal right fibula. There does not appear to be any dislocation or fracture within the joint spaces of the right knee or the right ankle. Patient had good pain control with IV fentanyl. Patient denies any hip pain, denies hitting her head. Denies any neck pain, denies any chest pain or shortness of breath. Patient states she was only about 10 inches off the ground when she fell off of this rolling stool that she was trying to kneel on. She believes she awkwardly twisted her right lower extremity causing this fracture. Lab work shows no leukocytosis, hemoglobin is stable at 11.4, platelet count is normal, CMP does not show any evidence of any critical findings, baseline chronic kidney disease is noted. I discussed the patient's presentation and fracture pattern with the on-call orthopedic physician intellectual property legal assistant, Edie Espitia PA-C, and plan at this time will be for admission to the hospitalist service and orthopedic consultation, placement of long posterior splint and likely tibial nail procedure tomorrow in the operating room with orthopedics. Patient was placed in a long posterior splint by the ED technicians, patient tolerated this procedure well. On my reassessment motor and sensory function remains intact distally in the right foot. Patient was in agreement to this plan for admission and orthopedic consultation. Case was discussed with the on-call hospitalist, Dr. Irizarry, and the patient was placed for admission in stable condition. Consultants/Discussions held with other healthcare providers: - [facility] orthopedics, Dr. Long - Hospitalist, Dr. Irizarry Disposition discussion held by myself with: - Patient Diagnosis: 1. Right sided tibia fracture, acute, closed, distal tibia 2. Right sided fibula fracture, acute, closed, proximal fibula Disposition: Admission Shubham Denise DO Emergency Medicine Past Med/Surg History Problem List (Updated 01/10/25 @ 01:10 by Shubham Denise DO) Fracture tibia/fibula (Acute) Acid reflux HX Vasomotor rhinitis Gout Hypomagnesemia Hypokalemia HFrEF (heart failure with reduced ejection fraction) Iron deficiency Dysphagia Acute respiratory failure with hypoxia Nonobstructive atherosclerosis of coronary artery (Unknown) PVCs (premature ventricular contractions) Cardiomyopathy Pre-operative cardiovascular examination Abnormal stress test Nonsustained ventricular tachycardia Atherogenic dyslipidemia Acute osteomyelitis (Acute) Dyspnea Bradycardia Mild cognitive impairment Neuropathic ulcer of left foot (Acute) Surgical wound, non healing (Acute) Peripheral neuropathy Fatigue CAD (coronary artery disease) PAD (peripheral artery disease) (Chronic) CKD (chronic kidney disease), stage III Encounter for pre-operative examination History of lobectomy of lung LEFT LOWER LOBE PARTIAL History of colon cancer 4-5 YR AGO/SX INTERVENTION Dilated cardiomyopathy follows with Dr. Santa / [facility]. Neuropathy Multiple sclerosis Graves disease 1979' RADIOACTIVE IODINE HTN (hypertension) Medical History On home oxygen therapy History of COVID-19 Acute on chronic systolic heart failure History of kidney stones Arthritis History of bleeding ulcers Acid reflux History of blood clots Peripheral vascular disease Surgical History History of cataract surgery History of amputation of toe History of cardiac cath History of toe surgery History of colonoscopy History of endoscopy History of shoulder surgery History of hysterectomy History of cholecystectomy History of vascular surgery History of vascular surgery History of bowel resection Family History Mother Family history of diabetes mellitus Aunt Family history of diabetes mellitus Sister Family history of diabetes mellitus Sister Family history of diabetes mellitus Uncle Family history of diabetes mellitus Uncle Family history of esophageal cancer Daughter Family history of reaction to anesthesia Social History (Updated 07/04/24 @ 12:58 by Brigida Jansen LPN) Smoking Status: Current every day smoker Tobacco Type: E-cigarettes / Vaping Age Started Using Tobacco: 18; Age Quit Using Tobacco: 77; packs per day: 0.5; Cigarettes Per Day: vapes daily (advised on policy); Second Hand Exposure: No; Do You Dip or Chew Tobacco: No; Hx Alcohol Use: No Hx Substance Use: No Preferred Language: Cypriot Communication Ability: Effective Visual Impairment: Limited Hearing Ability: Use of Hearing Aid Power Plant Manager Required: No Beliefs That Will Affect Care: None marital status: / Current Living Situation: Alone Current Living Situation Comment: daughter checks on her daily and helps with ADLs as needed How many Children do You have: 2 Feels Safe at Home: Yes Childhood Exposure to Second-Hand Smoke: No Diet: regular caffeine: Yes Dental Care, Regularly: No Physical Activity Frequency: Daily Seatbelt Use: always Sunscreen Use: No Assistive Devices: Cane, Denture - Upper, Glasses, Hearing Aid - Bilateral and Walker Allergies Allergies Allergy/AdvReac Type Severity Reaction Status Date / Time adhesive Allergy Intermediate SKIN Verified 01/07/25 11:01 BLISTERS, LOSES SKIN HERE AND THERE sulfamethoxazole AdvReac Severe CAUSED A Verified 01/07/25 11:01 [From Bactrim] PNEUMONITIS PER PT'S DAUGHTER trimethoprim [From Bactrim] AdvReac Severe CAUSED A Verified 01/07/25 11:01 PNEUMONITIS PER PT'S DAUGHTER amoxicillin [From Augmentin] AdvReac Intermediate Diarrhea Verified 01/07/25 11:01 clavulanic acid AdvReac Intermediate Diarrhea Verified 01/07/25 11:01 [From Augmentin] PAPER TAPE Allergy Intermediate SKIN Uncoded 01/07/25 11:01 BLISTERS, LOSES SKIN HERE AND THERE Home Meds Home Medications Medication Instructions Recorded Confirmed aspirin 81 mg tablet,delayed 81 mg PO HS 03/31/22 01/09/25 release (Adult Low Dose Aspirin) multivitamin 1 tab PO QAM 11/08/22 01/09/25 magnesium chloride 71.5 mg 71.5 mg PO QPM 06/07/23 01/09/25 (magnesium chloride) tablet,delayed release (Slow-Mag) albuterol sulfate 90 mcg/actuation 1 puff inhalation Q6 PRN Shortness 01/09/25 01/09/25 aerosol inhaler Of Breath Or Wheezing allopurinol 100 mg tablet 100 mg PO DAILY 01/09/25 01/09/25 amantadine HCl 100 mg capsule 100 mg PO BID 01/09/25 01/09/25 pantoprazole 40 mg tablet,delayed 40 mg PO DAILY 01/09/25 01/09/25 release Previous Rx's Medication Instructions Recorded clopidogrel 75 mg tablet (Plavix) 75 mg PO QAM #90 tabs 04/24/24 isosorbide mononitrate 60 mg 60 mg PO QAM #90 tabs 06/14/24 tablet,extended release 24 hr metoprolol succinate 25 mg 25 mg PO QAM #90 tabs 07/16/24 tablet,extended release 24 hr ipratropium bromide 21 mcg (0.03 2 spray intranasal BID #30 mL 08/15/24 %) nasal spray furosemide 20 mg tablet 20 mg PO DAILY edema #90 tabs 10/21/24 oxycodone-acetaminophen 5 mg-325 1 tab PO DAILY PRN pain #30 tabs 11/04/24 mg tablet (Percocet) sacubitril 24 mg-valsartan 26 mg 1 tab PO BID #180 tabs 12/02/24 tablet (Entresto) bupropion HCl 150 mg tablet,12 hr 150 mg PO BID 30 days #60 ea 01/07/25 sustained-release (Wellbutrin SR) Results & Data (ED) Vital Signs Vital Signs - 24 hr 01/09/25 18:56 01/09/25 19:12 01/09/25 19:13 Temperature Temperature Source Pulse Rate 81 Pulse Rate [Apical] Pulse Rate from SpO2 Sensor Respiratory Rate Respiratory Effort / Characteristics Respiratory Depth Blood Pressure 146/65 H Blood Pressure [Right Arm] Blood Pressure Mean 116 Blood Pressure Mean [Right Arm] Pulse Oximetry 97 Oxygen Delivery Method Room Air Oxygen Flow Rate Sepsis Recent Fever Within 48 Hours Sepsis New/Unexplained Change in Mental Status Sepsis Action Taken by Nursing 01/09/25 19:13 01/09/25 19:13 01/09/25 19:14 Temperature 36.8 C Temperature Source Oral Pulse Rate 81 Pulse Rate [Apical] Pulse Rate from SpO2 Sensor Respiratory Rate 19 Respiratory Effort / Characteristics Non-Labored Spontaneous Respiratory Depth Normal Blood Pressure 146/65 H 146/65 H 147/72 H Blood Pressure [Right Arm] Blood Pressure Mean 116 116 97 Blood Pressure Mean [Right Arm] Pulse Oximetry 95 Oxygen Delivery Method Room Air Oxygen Flow Rate Sepsis Recent Fever Within 48 Hours No Sepsis New/Unexplained Change in Mental Status No Sepsis Action Taken by Nursing No Action Required 01/09/25 19:15 01/09/25 19:28 01/09/25 19:36 Temperature Temperature Source Pulse Rate 73 65 Pulse Rate [Apical] Pulse Rate from SpO2 Sensor 74 63 Respiratory Rate 13 15 Respiratory Effort / Characteristics Respiratory Depth Blood Pressure Blood Pressure [Right Arm] Blood Pressure Mean Blood Pressure Mean [Right Arm] Pulse Oximetry 97 91 Oxygen Delivery Method Room Air Oxygen Flow Rate Sepsis Recent Fever Within 48 Hours Sepsis New/Unexplained Change in Mental Status Sepsis Action Taken by Nursing 01/09/25 19:51 01/09/25 20:01 01/09/25 20:01 Temperature Temperature Source Pulse Rate 66 Pulse Rate [Apical] Pulse Rate from SpO2 Sensor 63 Respiratory Rate 16 Respiratory Effort / Characteristics Respiratory Depth Blood Pressure 160/53 H 160/53 H Blood Pressure [Right Arm] Blood Pressure Mean 93 93 Blood Pressure Mean [Right Arm] Pulse Oximetry 95 Oxygen Delivery Method Oxygen Flow Rate Sepsis Recent Fever Within 48 Hours Sepsis New/Unexplained Change in Mental Status Sepsis Action Taken by Nursing 01/09/25 20:01 01/09/25 20:06 01/09/25 20:36 Temperature Temperature Source Pulse Rate 70 63 Pulse Rate [Apical] Pulse Rate from SpO2 Sensor 63 Respiratory Rate 26 H 19 Respiratory Effort / Characteristics Respiratory Depth Blood Pressure 160/53 H Blood Pressure [Right Arm] Blood Pressure Mean 93 Blood Pressure Mean [Right Arm] Pulse Oximetry 90 96 Oxygen Delivery Method Oxygen Flow Rate Sepsis Recent Fever Within 48 Hours Sepsis New/Unexplained Change in Mental Status Sepsis Action Taken by Nursing 01/09/25 20:39 01/09/25 21:01 01/09/25 21:01 Temperature Temperature Source Pulse Rate 65 Pulse Rate [Apical] Pulse Rate from SpO2 Sensor 65 Respiratory Rate 16 Respiratory Effort / Characteristics Respiratory Depth Blood Pressure 157/101 H 157/101 H Blood Pressure [Right Arm] Blood Pressure Mean 106 106 Blood Pressure Mean [Right Arm] Pulse Oximetry 94 Oxygen Delivery Method Oxygen Flow Rate Sepsis Recent Fever Within 48 Hours Sepsis New/Unexplained Change in Mental Status Sepsis Action Taken by Nursing 01/09/25 21:06 01/09/25 21:23 01/09/25 21:42 Temperature 36.5 C Temperature Source Pulse Rate 71 88 77 Pulse Rate [Apical] Pulse Rate from SpO2 Sensor 68 77 Respiratory Rate 23 19 33 H Respiratory Effort / Characteristics Respiratory Depth Blood Pressure 157/100 H Blood Pressure [Right Arm] Blood Pressure Mean Blood Pressure Mean [Right Arm] Pulse Oximetry 80 L 97 98 Oxygen Delivery Method Room Air Oxygen Flow Rate 0 Sepsis Recent Fever Within 48 Hours Sepsis New/Unexplained Change in Mental Status Sepsis Action Taken by Nursing 01/09/25 22:03 01/09/25 22:30 01/09/25 22:45 Temperature Temperature Source Pulse Rate 78 74 76 Pulse Rate [Apical] Pulse Rate from SpO2 Sensor 74 76 Respiratory Rate 25 H 17 20 Respiratory Effort / Characteristics Respiratory Depth Blood Pressure 131/89 Blood Pressure [Right Arm] Blood Pressure Mean 103 Blood Pressure Mean [Right Arm] Pulse Oximetry 95 96 Oxygen Delivery Method Oxygen Flow Rate Sepsis Recent Fever Within 48 Hours Sepsis New/Unexplained Change in Mental Status Sepsis Action Taken by Nursing 01/09/25 23:12 01/10/25 00:00 Temperature Temperature Source Pulse Rate 72 Pulse Rate [Apical] 70 Pulse Rate from SpO2 Sensor Respiratory Rate 16 Respiratory Effort / Characteristics Respiratory Depth Normal Blood Pressure Blood Pressure [Right Arm] 153/100 H Blood Pressure Mean Blood Pressure Mean [Right Arm] 117 Pulse Oximetry 97 Oxygen Delivery Method Room Air Oxygen Flow Rate Sepsis Recent Fever Within 48 Hours Sepsis New/Unexplained Change in Mental Status Sepsis Action Taken by Nursing Laboratory Data 01/09/25 19:15 01/09/25 19:15 Lab Results 01/09/25 01/09/25 Range/Units 19:15 19:56 WBC 5.48 (4.8-10.8) K/ul RBC 3.90 L (4.20-5.40) M/uL Hgb 11.4 L (12.0-16.0) g/dl POC Hgb 11.2 L (12.0-16.0) g/dl Hct 33.4 L (37.0-47.0) % POC Hct 33 L (37-47) % MCV 85.6 (80.0-100.0) fL MCH 29.2 (25.0-34.0) pg MCHC 34.1 (32.0-36.0) g/dL RDW Std Deviation 45.8 (36.4-46.3) fL RDW Coeff of Aminah 14.6 H (11.5-14.5) % Plt Count 148 (130-400) K/uL MPV 11.2 (9.4-12.4) fL Immature Gran % (Auto) 0.4 % Neut % (Auto) 64.9 % Lymph % (Auto) 24.5 % [place] % (Auto) 6.9 % Eos % (Auto) 2.9 % Baso % (Auto) 0.4 % Neut # (Auto) 3.56 (1.40-6.50) K/uL Lymph # (Auto) 1.34 (1.20-3.40) K/uL [place] # (Auto) 0.38 (0.11-0.59) K/uL Eos # (Auto) 0.16 (0.00-0.50) K/uL Baso # (Auto) 0.02 (0.00-0.20) K/uL Immature Gran # (Auto) 0.02 (0.01-0.20) K/uL PT 10.5 (9.0-12.0) Seconds INR 1.0 (0.9-1.1) APTT 20 L (21-31) Seconds PTT Ratio 0.7 POC Sodium 142 (135-144) mmol/L Sodium 141 (136-145) mmol/L POC Potassium 3.4 (3.3-5.0) mmol/L Potassium 3.6 (3.5-5.1) mmol/L POC Chloride 105 (101-112) mmol/L Chloride 108 H (98-107) mmol/L Carbon Dioxide 26 (21-32) mmol/L POC Total CO2 23 L (24-31) mmol/L Anion Gap 7 (3-11) POC Anion Gap 18.0 (16-25) mmol/L POC BUN 38 H (7-18) mg/dl BUN 41 H (6-23) mg/dl Creatinine 1.89 H (0.6-1.2) mg/dl POC Creatinine 2.0 H (0.6-1.3) mg/dl Est Cr Clr Drug Dosing 25.7 ml/min eGFR 27.03 BUN/Creatinine Ratio 21.7 H (10-20) Glucose 159 H (70-99(Fasting)) mg/dl POC Glucose (other) 156 H (70-99) mg/dl Calcium 8.9 (8.6-10.3) mg/dl POC Ioniz Calcium Janelle 1.20 (1.12-1.32) mmol/l Total Bilirubin 0.8 (0.2-1.0) mg/dl AST 10 L (13-39) U/L ALT 10 (7-52) U/L Alkaline Phosphatase 114 H (34-104) U/L Total Protein 6.1 (6.0-8.3) gm/dl Albumin 3.8 (3.4-5.0) gm/dl Globulin 2.3 L (2.5-4.0) gm/dl Albumin/Globulin Ratio 1.7 (0.9-2) Administered Medications Discontinued Medications Fentanyl Citrate (Fentanyl Citrate Pf 100 Mcg/2 Ml Vial) 50 mcg IV NOW STA Stop: 01/09/25 21:15 Last Admin: 01/09/25 21:35 Dose: 50 mcg Documented By: BS Fentanyl Citrate (Fentanyl Citrate Pf 100 Mcg/2 Ml Vial) 50 mcg IV NOW STA Stop: 01/09/25 22:13 Last Admin: 01/09/25 23:00 Dose: 50 mcg Documented By: BS Imaging Data Radiologist's Impression: Ankle X-Ray 01/09/25 19:28 Exam(s): XR RIGHT ANKLE, 3+ views EXAM: XR Right Ankle, 2 Views CLINICAL HISTORY: Reason for exam: fall. TECHNIQUE: Frontal and lateral views of the right ankle. COMPARISON: No relevant prior studies available. FINDINGS: Bones/joints: There is a spiral fracture of the distal right tibial metaphysis with 1.5 cm posterior displacement and 11° posterior angulation of the distal fracture fragment. There 2 oblique views of the ankle and right lower leg. The ankle mortise joint to is not well evaluated due to the positioning but no acute fracture is visible at the level of the ankle. Bone marrow density is normal. No dislocation. Soft tissues: Unremarkable. IMPRESSION: 1. There is a spiral fracture of the distal right tibial metaphysis with 1.5 cm posterior displacement and 11° posterior angulation of the distal fracture fragment. 2. Please see tib-fib films for description and proximal fibular fracture. 3. The ankle mortise joint to is not well evaluated due to the positioning but no acute fracture is visible at the level of the ankle. Electronically signed by: Josemanuel Huddleston MD 01/09/25 21:15 PM Tibia/Fibula X-Ray 01/09/25 19:28 Exam(s): XR RIGHT TIB/FIB, 2 views EXAM: XR Right Tibia and Fibula, 2 Views CLINICAL HISTORY: Reason for exam: fall. TECHNIQUE: Frontal and lateral views of the right tibia and fibula. COMPARISON: No relevant prior studies available. FINDINGS: Bones/joints: Spiral fracture of the distal diaphysis of the right tibia located 10 cm proximal to the ankle. There is 1.5 cm posterior displacement and 10° posterior angulation. There is a fracture of the proximal fibular shaft located 9 cm below the tibial plateau and 12 cm from the tibial fracture. The knee and ankle joints appear normally aligned. Soft tissues: Unremarkable. No radiopaque foreign body. IMPRESSION: 1. Spiral fracture of the distal diaphysis of the right tibia located 10 cm proximal to the ankle. There is 1.5 cm posterior displacement and 10° posterior angulation. 2. There is a fracture of the proximal fibular shaft located 9 cm below the tibial plateau and 12 cm from the tibial fracture. This likely indicates disruption of the interosseous ligament between those 2 levels. Electronically signed by: Josemanuel Huddleston MD 01/09/25 21:16 PM Discharge Plan Visit Data Chief Complaint: Trauma Stated Complaint: Fall, R Ankle Pain ED Provider: Shubham Denise Discharge Problem: Fracture tibia/fibula Discharge Instructions Interventions: ED Discharge Assessment Last Done: 01/10/25 00:57 Forms Stand Alone Forms: [facility] [employer] Prescriptions Prescriptions: No Action clopidogrel [Plavix] 75 mg tablet 75 mg PO QAM Qty: 90 3RF isosorbide mononitrate 60 mg tablet extended release 24 hr 60 mg PO QAM Qty: 90 3RF metoprolol succinate 25 mg tablet extended release 24 hr 25 mg PO QAM Qty: 90 3RF furosemide 20 mg tablet 20 mg PO DAILY Qty: 90 3RF oxycodone-acetaminophen [Percocet] 5-325 mg tablet 1 tab PO DAILY PRN (Reason: pain) Qty: 30 0RF aspirin [Adult Low Dose Aspirin] 81 mg tablet,delayed release (DR/EC) 81 mg PO HS multivitamin Tablet 1 tab PO QAM Entresto 24-26 mg tablet 1 tab PO BID Qty: 180 3RF bupropion HCl [Wellbutrin SR] 150 mg tablet sustained-release 12 hr 150 mg PO BID 30 Days Qty: 60 0RF ipratropium bromide 21 mcg (0.03 %) spray,non-aerosol 2 spray intranasal BID Qty: 30 3RF Rx Instructions: administer into each nostril Slow-Mag 71.5 mg tablet,delayed release (DR/EC) 71.5 mg PO QPM amantadine HCl 100 mg capsule 100 mg PO BID allopurinol 100 mg tablet 100 mg PO DAILY Rx Instructions: TAKE ONE TABLET BY MOUTH EVERY DAY pantoprazole 40 mg tablet,delayed release (DR/EC) 40 mg PO DAILY albuterol sulfate 90 mcg/actuation HFA aerosol inhaler 1 puff inhalation Q6 PRN (Reason: Shortness Of Breath Or Wheezing) Referrals Referrals: Maynor Thornton DO [Primary Care Provider] - Discharge Problem: Fracture tibia/fibula Qualifiers: Encounter type: initial encounter Fracture type: closed Laterality: right Q ualified Code(s): S82.201A - Unspecified fracture of shaft of right tibia, initial encounter for closed fracture; S82.401A - Unspecified fracture of shaft of right fibula, initial encounter for closed fracture
[2025-01-09 19:42] LABS: Basophils # (auto) 0.02 K/uL (0.00-0.20); Basophils % (auto) 0.4 %; Eosinophils # (auto) 0.16 K/uL (0.00-0.50); Eosinophils % (auto) 2.9 %; Hematocrit (blood only) 33.4 % (37.0-47.0); Hemoglobin 11.4 g/dl (12.0-16.0); Immature Granulocytes # (auto) 0.02 K/uL (0.01-0.20); Immature Granulocytes % (auto) 0.4 %; Lymphocytes # (auto) 1.34 K/uL (1.20-3.40); Lymphocytes % (auto) 24.5 %; Mean Corpuscular Hemoglobin 29.2 pg (25.0-34.0); Mean Corpuscular Hgb Conc 34.1 g/dL (32.0-36.0); Mean Corpuscular Volume 85.6 fL (80.0-100.0); Mean Platelet Volume 11.2 fL (9.4-12.4); Monocytes # (auto) 0.38 K/uL (0.11-0.59); Monocytes % (auto) 6.9 %; Neutrophils # (auto) 3.56 K/uL (1.40-6.50); Neutrophils % (auto) 64.9 %; Platelet Count 148 K/uL (130-400); RDW Coefficient of Variation 14.6 % (11.5-14.5); RDW Standard Deviation 45.8 fL (36.4-46.3); White Blood Count 5.48 K/ul (4.8-10.8)
[2025-01-09 19:58] LABS: Albumin Globulin Ratio 1.7 (0.9-2); Albumin Level 3.8 gm/dl (3.4-5.0); BUN Creatinine Ratio 21.7 (10-20); Bilirubin,Total 0.8 mg/dl (0.2-1.0); Calcium 8.9 mg/dl (8.6-10.3); Creatinine Clr Calc Pharmacy 25.7 ml/min; Globulin 2.3 gm/dl (2.5-4.0); Potassium 3.6 mmol/L (3.5-5.1); Total Protein 6.1 gm/dl (6.0-8.3)
[2025-01-09 20:08] LABS: iSTAT Hemoglobin 11.2 g/dl (12.0-16.0); iSTAT Ionized Calcium 1.2 mmol/l (1.12-1.32); iSTAT Potassium 3.4 mmol/L (3.3-5.0)
[2025-01-09 20:16] LABS: Partial Thromboplastin Ratio 0.7; Partial Thromboplastin Time 20 Seconds (21-31); Prothrombin Time 10.5 Seconds (9.0-12.0)
--- NOTE | 2025-01-09 21:15 | XRay Report ---
Exam(s): XR RIGHT ANKLE, 3+ views EXAM: XR Right Ankle, 2 Views CLINICAL HISTORY: Reason for exam: fall. TECHNIQUE: Frontal and lateral views of the right ankle. COMPARISON: No relevant prior studies available. FINDINGS: Bones/joints: There is a spiral fracture of the distal right tibial metaphysis with 1.5 cm posterior displacement and 11° posterior angulation of the distal fracture fragment. There 2 oblique views of the ankle and right lower leg. The ankle mortise joint to is not well evaluated due to the positioning but no acute fracture is visible at the level of the ankle. Bone marrow density is normal. No dislocation. Soft tissues: Unremarkable. IMPRESSION: 1. There is a spiral fracture of the distal right tibial metaphysis with 1.5 cm posterior displacement and 11° posterior angulation of the distal fracture fragment. 2. Please see tib-fib films for description and proximal fibular fracture. 3. The ankle mortise joint to is not well evaluated due to the positioning but no acute fracture is visible at the level of the ankle. Electronically signed by: Josemanuel Huddleston MD 01/09/25 21:15 PM
--- NOTE | 2025-01-09 21:17 | XRay Report ---
Exam(s): XR RIGHT TIB/FIB, 2 views EXAM: XR Right Tibia and Fibula, 2 Views CLINICAL HISTORY: Reason for exam: fall. TECHNIQUE: Frontal and lateral views of the right tibia and fibula. COMPARISON: No relevant prior studies available. FINDINGS: Bones/joints: Spiral fracture of the distal diaphysis of the right tibia located 10 cm proximal to the ankle. There is 1.5 cm posterior displacement and 10° posterior angulation. There is a fracture of the proximal fibular shaft located 9 cm below the tibial plateau and 12 cm from the tibial fracture. The knee and ankle joints appear normally aligned. Soft tissues: Unremarkable. No radiopaque foreign body. IMPRESSION: 1. Spiral fracture of the distal diaphysis of the right tibia located 10 cm proximal to the ankle. There is 1.5 cm posterior displacement and 10° posterior angulation. 2. There is a fracture of the proximal fibular shaft located 9 cm below the tibial plateau and 12 cm from the tibial fracture. This likely indicates disruption of the interosseous ligament between those 2 levels. Electronically signed by: Josemanuel Huddleston MD 01/09/25 21:16 PM
[2025-01-09] MEDS: fentaNYL citrate PF 100 MCG/2 ML VIAL IV STA ×2 (21:35→23:00)
--- NOTE | 2025-01-09 22:13 | History & Physical Report ---
Date of Service January 09, 2025 Assessment & Plan (1) Fracture tibia/fibula: Plan 79 year old presents to the ER after a fall off stool with right ankle pain and tub/fib fracture on XR #Right tib/fib fracture Splint placed in the ER Consult orthopedics NPO after midnight EKG and CXR pre-operatively, revised cardiac risk index 1, 6% risk of major cardiac event over the next 30 days Suggest DEXA scan as outpatient given low impact of fall and history of oste oporosis 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) Continue metoprolol succinate + Entresto, these should not be held pre- operatively Continue her usual furosemide 20mg PO Currently she appears to be euvolemic #CKD IV Current Cr at baseline #Peripheral artery disease Hold aspirin and clopidogrel preoperatively Previously on atorvastatin but stopped due to leg cramping and memory issues #Multiple sclerosis Continue amantadine #History of gout Continue allopurinol VTE Prophylaxis - deferred pre-operatively Disposition - admit to med/surg Admission and Anticipated Discharge Date Admission Date: January 09, 2025 History of Present Illness Chief Complaint: Right ankle pain Primary Care Provider: DO Bee Austin Tam is a 79 year old female who presents to the ER with right ankle pain. She had a right leg on a stool with rollers while bending down to get something out of cabinets when the stool which was less than a foot high gave way and pulled her leg down to the ground in an unusual way. Having right ankle pain since the fall and felt a snap at the time. Leg is currently in a splint but was described as a closed fracture by ER provider. She reports possibly having osteoporosis 30 years ago and may have been medication but nothing recently. She also has a significant history of nonischemic cardiomyopathy but reports no recent weight gain, shortness of breath, chest pain, leg swelling and palpitations. She currently otherwise feels at her baseline. No chest pain, shortness of breath, dizziness prior to her fall. Allergies Allergy/AdvReac Type Severity Reaction Status Date / Time adhesive Allergy Intermediate SKIN Verified 01/07/25 11:01 BLISTERS, LOSES SKIN HERE AND THERE sulfamethoxazole AdvReac Severe CAUSED A Verified 01/07/25 11:01 [From Bactrim] PNEUMONITIS PER PT'S DAUGHTER trimethoprim [From Bactrim] AdvReac Severe CAUSED A Verified 01/07/25 11:01 PNEUMONITIS PER PT'S DAUGHTER amoxicillin [From Augmentin] AdvReac Intermediate Diarrhea Verified 01/07/25 11:01 clavulanic acid AdvReac Intermediate Diarrhea Verified 01/07/25 11:01 [From Augmentin] PAPER TAPE Allergy Intermediate SKIN Uncoded 01/07/25 11:01 BLISTERS, LOSES SKIN HERE AND THERE Home Medications Medication Instructions Recorded Confirmed Type aspirin 81 mg tablet,delayed 81 mg PO HS 03/31/22 01/09/25 History release (Adult Low Dose Aspirin) multivitamin 1 tab PO QAM 11/08/22 01/09/25 History magnesium chloride 71.5 mg 71.5 mg PO QPM 06/07/23 01/09/25 History (magnesium chloride) tablet,delayed release (Slow-Mag) clopidogrel 75 mg tablet (Plavix) 75 mg PO QAM #90 tabs 04/24/24 01/09/25 Rx isosorbide mononitrate 60 mg 60 mg PO QAM #90 tabs 06/14/24 01/09/25 Rx tablet,extended release 24 hr metoprolol succinate 25 mg 25 mg PO QAM #90 tabs 07/16/24 01/09/25 Rx tablet,extended release 24 hr ipratropium bromide 21 mcg (0.03 2 spray intranasal BID #30 mL 08/15/24 01/09/25 Rx %) nasal spray furosemide 20 mg tablet 20 mg PO DAILY edema #90 tabs 10/21/24 01/09/25 Rx oxycodone-acetaminophen 5 mg-325 1 tab PO DAILY PRN pain #30 tabs 11/04/24 01/09/25 Rx mg tablet (Percocet) sacubitril 24 mg-valsartan 26 mg 1 tab PO BID #180 tabs 12/02/24 01/09/25 Rx tablet (Entresto) bupropion HCl 150 mg tablet,12 hr 150 mg PO BID 30 days #60 ea 01/07/25 01/09/25 Rx sustained-release (Wellbutrin SR) albuterol sulfate 90 mcg/actuation 1 puff inhalation Q6 PRN Shortness 01/09/25 01/09/25 History aerosol inhaler Of Breath Or Wheezing allopurinol 100 mg tablet 100 mg PO DAILY 01/09/25 01/09/25 History amantadine HCl 100 mg capsule 100 mg PO BID 01/09/25 01/09/25 History pantoprazole 40 mg tablet,delayed 40 mg PO DAILY 01/09/25 01/09/25 History release Past Med/Surg History Problem List (Updated 01/10/25 @ 01:10 by Shuhbam Deinse, DO) Fracture tibia/fibula (Acute) Acid reflux HX Vasomotor rhinitis Gout Hypomagnesemia Hypokalemia HFrEF (heart failure with reduced ejection fraction) Iron deficiency Dysphagia Acute respiratory failure with hypoxia Nonobstructive atherosclerosis of coronary artery (Unknown) PVCs (premature ventricular contractions) Cardiomyopathy Pre-operative cardiovascular examination Abnormal stress test Nonsustained ventricular tachycardia Atherogenic dyslipidemia Acute osteomyelitis (Acute) Dyspnea Bradycardia Mild cognitive impairment Neuropathic ulcer of left foot (Acute) Surgical wound, non healing (Acute) Peripheral neuropathy Fatigue CAD (coronary artery disease) PAD (peripheral artery disease) (Chronic) CKD (chronic kidney disease), stage III Encounter for pre-operative examination History of lobectomy of lung LEFT LOWER LOBE PARTIAL History of colon cancer 4-5 YR AGO/SX INTERVENTION Dilated cardiomyopathy follows with Dr. Santa / [facility]. Neuropathy Multiple sclerosis Graves disease 1979' RADIOACTIVE IODINE HTN (hypertension) Medical History On home oxygen therapy History of COVID-19 Acute on chronic systolic heart failure History of kidney stones Arthritis History of bleeding ulcers Acid reflux History of blood clots Peripheral vascular disease Surgical History History of cataract surgery History of amputation of toe History of cardiac cath History of toe surgery History of colonoscopy History of endoscopy History of shoulder surgery History of hysterectomy History of cholecystectomy History of vascular surgery History of vascular surgery History of bowel resection Family History Mother Family history of diabetes mellitus Aunt Family history of diabetes mellitus Sister Family history of diabetes mellitus Sister Family history of diabetes mellitus Uncle Family history of diabetes mellitus Uncle Family history of esophageal cancer Daughter Family history of reaction to anesthesia Social History (Updated 07/04/24 @ 12:58 by Brigida Jansen LPN) Smoking Status: Current every day smoker Tobacco Type: E-cigarettes / Vaping Age Started Using Tobacco: 18; Age Quit Using Tobacco: 77; packs per day: 0.5; Cigarettes Per Day: vapes daily (advised on policy); Second Hand Exposure: No; Do You Dip or Chew Tobacco: No; Tobacco Cessation Education Requested by Patient: No Hx Alcohol Use: No Hx Substance Use: No Preferred Language: Kenyan Communication Ability: Effective Visual Impairment: Limited Hearing Ability: Use of Hearing Aid Funeral Home Manager Required: No Beliefs That Will Affect Care: None marital status: / Current Living Situation: Alone Current Living Situation Comment: daughter checks on her daily and helps with ADLs as needed How many Children do You have: 2 Other Information That Helps Us Care for You: No Feels Safe at Home: Yes Safety Concerns: Feels Safe At This Time Childhood Exposure to Second-Hand Smoke: No Diet: regular caffeine: Yes Dental Care, Regularly: No Physical Activity Frequency: Daily Seatbelt Use: always Sunscreen Use: No Assistive Devices: Cane, Denture - Upper, Glasses, Hearing Aid - Bilateral and Walker Review of Systems Review of Systems: All systems reviewed & are unremarkable except as noted in HPI & below Physical Exam Constitutional: WD/WN, vitals as above Respiratory: normal respiratory effort, lungs clear to auscultation Cardiovascular: RRR, no murmur, no edema Gastrointestinal (Abdomen): normal bowel sounds, soft, nontender, no hepatosplenomegaly Musculoskeletal: Right leg in splint, no feeling in toes which is chronic, unable to palpate pulses due to splint but good capillary refill toes right foot < 2 seconds Neurologic: moves all extremities and awake; not confused Psychiatric: A+Ox3, euthymic affect Results & Data Results & Data Vital Signs (Past 12 Hours) Vital Signs Temp Pulse Resp BP Pulse Ox O2 Del Method O2 Flow Rate 01/09/25 21:23 36.5 C 88 19 157/100 H 97 Room Air 0 01/09/25 19:28 Room Air 01/09/25 19:14 36.8 C 81 19 147/72 H 95 Room Air 01/09/25 19:12 81 01/09/25 18:56 97 Room Air Laboratory Results Abnormal lab results 01/09/25 01/09/25 Range/Units 19:15 19:56 RBC 3.90 L (4.20-5.40) M/uL Hgb 11.4 L (12.0-16.0) g/dl POC Hgb 11.2 L (12.0-16.0) g/dl Hct 33.4 L (37.0-47.0) % POC Hct 33 L (37-47) % RDW Coeff of Aminah 14.6 H (11.5-14.5) % APTT 20 L (21-31) Seconds Chloride 108 H (98-107) mmol/L POC Total CO2 23 L (24-31) mmol/L POC BUN 38 H (7-18) mg/dl BUN 41 H (6-23) mg/dl Creatinine 1.89 H (0.6-1.2) mg/dl POC Creatinine 2.0 H (0.6-1.3) mg/dl BUN/Creatinine Ratio 21.7 H (10-20) Glucose 159 H (70-99(Fasting)) mg/dl POC Glucose (other) 156 H (70-99) mg/dl AST 10 L (13-39) U/L Alkaline Phosphatase 114 H (34-104) U/L Globulin 2.3 L (2.5-4.0) gm/dl Diagnostic Findings XR RIGHT TIB/FIB, 2 views EXAM: XR Right Tibia and Fibula, 2 Views CLINICAL HISTORY: Reason for exam: fall. TECHNIQUE: Frontal and lateral views of the right tibia and fibula. COMPARISON: No relevant prior studies available. FINDINGS: Bones/joints: Spiral fracture of the distal diaphysis of the right tibia located 10 cm proximal to the ankle. There is 1.5 cm posterior displacement and 10° posterior angulation. There is a fracture of the proximal fibular shaft located 9 cm below the tibial plateau and 12 cm from the tibial fracture. The knee and ankle joints appear normally aligned. Soft tissues: Unremarkable. No radiopaque foreign body. IMPRESSION: 1. Spiral fracture of the distal diaphysis of the right tibia located 10 cm proximal to the ankle. There is 1.5 cm posterior displacement and 10° posterior angulation. 2. There is a fracture of the proximal fibular shaft located 9 cm below the tibial plateau and 12 cm from the tibial fracture. This likely indicates disruption of the interosseous ligament between those 2 levels. XR RIGHT ANKLE, 3+ views EXAM: XR Right Ankle, 2 Views CLINICAL HISTORY: Reason for exam: fall. TECHNIQUE: Frontal and lateral views of the right ankle. COMPARISON: No relevant prior studies available. FINDINGS: Bones/joints: There is a spiral fracture of the distal right tibial metaphysis with 1.5 cm posterior displacement and 11° posterior angulation of the distal fracture fragment. There 2 oblique views of the ankle and right lower leg. The ankle mortise joint to is not well evaluated due to the positioning but no acute fracture is visible at the level of the ankle. Bone marrow density is normal. No dislocation. Soft tissues: Unremarkable. IMPRESSION: 1. There is a spiral fracture of the distal right tibial metaphysis with 1.5 cm posterior displacement and 11° posterior angulation of the distal fracture fragment. 2. Please see tib-fib films for description and proximal fibular fracture. 3. The ankle mortise joint to is not well evaluated due to the positioning but no acute fracture is visible at the level of the ankle. Medications Administered ER Medications Given: Fentanyl 50 mcg IV x2 Code Status & VTE Plan Code Status Full VTE Prophylaxis Plan VTE Prophylaxis will be ordered: No PG Care Time/CCT Total # of Minutes Spent Total Time Spent with Patient: Total time spent is greater than 50% in coordination of care (as documented) at patient's floor/unit and/or counseling patient: Coding Level of Care Code 86931 INT INP/OBS CARE 3/75MIN Diagnoses Fracture tibia/fibula S82.201A; S82.401A Encounter type: initial encounter Fracture type: closed Laterality: right (1) Fracture tibia/fibula Encounter type: initial encounter Fracture type: closed Laterality: right Qualified Code(s): S82.201A - Unspecified fracture of shaft of right tibia, initial encounter for closed fracture; S82.401A - Unspecified fracture of shaft of right fibula, initial encounter for closed fracture
[2025-01-10] MEDS ORDERED: oxyCODONE HCL IR 5 MG TAB (IMMEDIATE RELEASE) PO PRN (01:38)
[2025-01-10] MEDS ORDERED: ALBUTEROL HFA 8 GM INHALER INH PRN (01:38)
[2025-01-10] MEDS ORDERED: MoRPHine SULFATE 2 MG/ML CARP IV PRN (01:38)
[2025-01-10 02:12] LABS: Magnesium 1.8 mg/dl (1.7-2.4)
[2025-01-10] MEDS: IPRATROPIUM BROMIDE NASAL SPRAY 0.03% 30 ML NAE SCH (02:51)
[2025-01-10] MEDS: VALSARTAN/SACUBITRIL 26/24MG TAB PO SCH (02:52)
[2025-01-10] MEDS: buPROPion SR 150 MG TABCR PO SCH (02:52)
[2025-01-10] MEDS: AMANTADINE HCL 100 MG CAPSULE PO SCH (02:52)
[2025-01-10] MEDS: MAGNESIUM CHLORIDE W/CALCIUM 64MG DELAYED REL TAB PO SCH (02:52)
[2025-01-10] MEDS: LACTATED RINGER'S 1,000 ML IV SCH ×2 (02:53→11:48)
[2025-01-10] MEDS: MoRPHine SULFATE 2 MG/ML CARP IV PRN (04:12)
--- NOTE | 2025-01-10 07:08 | Orthopedic Consultation ---
Date of Service January 10, 2025 Assessment & Plan (1) Fracture tibia/fibula: At this time, would continue to keep the patient NPO. We discussed the treatment options including risk, benefits alternatives for her right midshaft tibia fracture. Would recommend surgical intervention as discussed with my attending physician. This would be a closed versus open reduction and internal fixation of the right midshaft spiral tibia fracture. We discussed risks include but not limited to infection, neurovascular injury, arthrofibrosis, need for repeat or revision surgery, implant complications, implant migration, failure, persisted pain, pain syndrome, blood clots, and complications related to anesthesia. She asked appropriate questions and demonstrated good understanding and wants to proceed with surgery. Informed consent was documented today. Dr. Long will see the patient in the pre-op area. History of Present Illness Reason for Consultation: Right tibia and fibula fracture Requesting Physician: . Attending Physician: Ileana Hallman DO Bee is a 79-year-old female who I have been in contact with the emergency department since last evening due to a patient's fall resulting in a right midshaft spiral tibia and fibula fracture. She was admitted to the hospital for ambulatory dysfunction and for surgical intervention. She states that yesterday, she was trying to crouch down into her cabinet. She was using a stool, unfortunately the stool slipped and her right leg twisted. She was found to have a right midshaft tibia and proximal fibula fracture on imaging in the emergency department. I did recommend splinting with a long-leg posterior splint and surgical intervention. This was reviewed by my attending physician as well. Same recommendations apply. Patient states that she is on Plavix and aspirin. They have been held since last evening by the emergency department. Last dose was yesterday morning. 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 She states that she has had stents in many arteries from her waist down. She has not had any specifically in the right lower extremity but has had some more proximal to her abdomen. She states that she does live at home. She does not go out often due to balance issues. She uses a walker every once in a while but when she is at home, she has things that she can grab onto when she is ambulating independently. She does have a daughter who comes to help her out. Her daughter is a primary care physician at [facility]. Patient does state that she has a draining left foot wound. She states that it drains every once in a while but her daughter does take care of it if needed. Other than that, patient does not have any other questions or concerns. Allergies Allergy/AdvReac Type Severity Reaction Status Date / Time adhesive Allergy Intermediate SKIN Verified 01/07/25 11:01 BLISTERS, LOSES SKIN HERE AND THERE adhesive tape Allergy Intermediate Skin Verified 01/10/25 07:31 blisters, loses skin here and there sulfamethoxazole AdvReac Severe CAUSED A Verified 01/07/25 11:01 [From Bactrim] PNEUMONITIS PER PT'S DAUGHTER trimethoprim [From Bactrim] AdvReac Severe CAUSED A Verified 01/07/25 11:01 PNEUMONITIS PER PT'S DAUGHTER amoxicillin [From Augmentin] AdvReac Intermediate Diarrhea Verified 01/07/25 11:01 clavulanic acid AdvReac Intermediate Diarrhea Verified 01/07/25 11:01 [From Augmentin] Home Medications Medication Instructions Recorded Confirmed Type multivitamin 1 tab PO QAM 11/08/22 01/09/25 History magnesium chloride 71.5 mg 71.5 mg PO QPM 06/07/23 01/09/25 History (magnesium chloride) tablet,delayed release (Slow-Mag) clopidogrel 75 mg tablet (Plavix) 75 mg PO QAM #90 tabs 04/24/24 01/09/25 Rx isosorbide mononitrate 60 mg 60 mg PO QAM #90 tabs 06/14/24 01/09/25 Rx tablet,extended release 24 hr metoprolol succinate 25 mg 25 mg PO QAM #90 tabs 07/16/24 01/09/25 Rx tablet,extended release 24 hr ipratropium bromide 21 mcg (0.03 2 spray intranasal BID #30 mL 08/15/24 01/09/25 Rx %) nasal spray furosemide 20 mg tablet 20 mg PO DAILY edema #90 tabs 10/21/24 01/09/25 Rx sacubitril 24 mg-valsartan 26 mg 1 tab PO BID #180 tabs 12/02/24 01/09/25 Rx tablet (Entresto) albuterol sulfate 90 mcg/actuation 1 puff inhalation Q6 PRN Shortness 01/09/25 01/09/25 History aerosol inhaler Of Breath Or Wheezing allopurinol 100 mg tablet 100 mg PO DAILY 01/09/25 01/09/25 History amantadine HCl 100 mg capsule 100 mg PO BID 01/09/25 01/09/25 History pantoprazole 40 mg tablet,delayed 40 mg PO DAILY 01/09/25 01/09/25 History release aspirin 81 mg tablet,delayed 81 mg PO BID 42 days #0 tabs 01/11/25 01/09/25 Rx release (Adult Low Dose Aspirin) cefadroxil 500 mg capsule 500 mg PO BID 10 days #20 caps 01/11/25 Rx acetaminophen 500 mg tablet 1,000 mg (2 x 500 mg) PO TID 15 01/13/25 Rx (Tylenol Extra Strength) days #60 tabs cefadroxil 500 mg capsule 500 mg PO BID 8 days #16 caps 01/13/25 Rx methocarbamol 500 mg tablet 500 mg PO TID 30 days #90 tabs 01/13/25 Rx methocarbamol 500 mg tablet 500 mg PO TID 30 days #90 tabs 01/13/25 Rx oxycodone 5 mg tablet 5 mg PO Q4H PRN pain #20 tabs 01/13/25 Rx tamsulosin 0.4 mg capsule 0.4 mg PO QAM 30 days #30 caps 01/13/25 Rx tamsulosin 0.4 mg capsule (Flomax) 0.4 mg PO HS 14 days #14 caps 01/13/25 Rx Past Med/Surg History Problem List (Updated 01/10/25 @ 10:54 by LORI Perez) Fracture of right tibia and fibula (Acute ~01/09/25) Fracture tibia/fibula (Acute 01/09/25) Spiral fracture of the distal diaphysis of the right tibia located 10 cm proximal to the ankle. There is 1.5 cm posterior displacement and 10° posterior angulation. There is a fracture of the proximal fibular shaft located 9 cm below the tibial plateau and 12 cm from the tibial fracture. This likely indicates disruption of the interosseous ligament between those 2 levels. Acid reflux HX Vasomotor rhinitis Hypomagnesemia Hypokalemia HFrEF (heart failure with reduced ejection fraction) Iron deficiency Dysphagia Acute respiratory failure with hypoxia PVCs (premature ventricular contractions) Cardiomyopathy Pre-operative cardiovascular examination Abnormal stress test Nonsustained ventricular tachycardia Atherogenic dyslipidemia Acute osteomyelitis (Acute) Dyspnea Bradycardia Mild cognitive impairment Neuropathic ulcer of left foot (Acute) Surgical wound, non healing (Acute) Fatigue CAD (coronary artery disease) Encounter for pre-operative examination History of lobectomy of lung LEFT LOWER LOBE PARTIAL History of colon cancer 4-5 YR AGO/SX INTERVENTION Dilated cardiomyopathy follows with Dr. Santa / [facility]. Neuropathy Graves disease RADIOACTIVE IODINE Medical History (Updated 01/10/25 @ 10:54 by LORI Perez) Gout Nonobstructive atherosclerosis of coronary artery (Unknown) Peripheral neuropathy PAD (peripheral artery disease) CKD (chronic kidney disease), stage III HTN (hypertension) Multiple sclerosis On home oxygen therapy 2L prn HS History of COVID-19 03/2022--mild symptoms, no sypmtoms now Acute on chronic systolic heart failure new diagnosis 12/2022--follows with Dr. Santa History of kidney stones Arthritis History of bleeding ulcers REMOTE HX History of blood clots LEGS/REASON FOR BLOOD THINNER...NO CLOTS SINCE ON BLOOD THINNER Peripheral vascular disease Surgical History History of cataract surgery History of amputation of toe 04/13/22 Dr. Montano--Left foot transmetatarsal amputation History of cardiac cath 12/29/[address] [facility]--no stents placed---follows with Dr. Santa History of toe surgery JANUARY 2022 - [facility]/2 TOES REMOVED History of colonoscopy Colonoscopy 08/22/23, repeat 3 years in 2025 History of endoscopy History of shoulder surgery History of hysterectomy History of cholecystectomy History of vascular surgery AORTIC BI FEMORAL BYPASS PER PT History of vascular surgery STENTS BOTH FEMORALS , MULTIPLE , HX CLOTTING AFTERWARDS ...AORTIC BI FEMORAL BYPASS History of bowel resection FOR COLON CA ~2018. Family History Mother Family history of diabetes mellitus Aunt Family history of diabetes mellitus Sister Family history of diabetes mellitus Sister Family history of diabetes mellitus Uncle Family history of diabetes mellitus Uncle Family history of esophageal cancer Daughter Family history of reaction to anesthesia nausea/vomiting Social History (Updated 07/04/24 @ 12:58 by Brigida Jansen LPN) Smoking Status: Current every day smoker Tobacco Type: E-cigarettes / Vaping Age Started Using Tobacco: 18; Age Quit Using Tobacco: 77; packs per day: 0.5; Cigarettes Per Day: vapes daily (advised on policy); Second Hand Exposure: No; Do You Dip or Chew Tobacco: No; Hx Alcohol Use: No Hx Substance Use: No Preferred Language: Maltese Communication Ability: Effective Visual Impairment: Limited Hearing Ability: Use of Hearing Aid Parasitologist Required: No Beliefs That Will Affect Care: None marital status: / Current Living Situation: Alone Current Living Situation Comment: daughter checks on her daily and helps with ADLs as needed How many Children do You have: 2 Feels Safe at Home: Yes Childhood Exposure to Second-Hand Smoke: No Diet: regular caffeine: Yes Dental Care, Regularly: No Physical Activity Frequency: Daily Seatbelt Use: always Sunscreen Use: No Assistive Devices: Cane, Walker and Wheelchair Review of Systems All systems reviewed & are unremarkable except as noted in HPI & below. Physical Exam General: Alert and oriented. No acute distress. Constitutional WD/WN, vitals as above Cardiovascular Extremities: normal capillary refill Musculoskeletal Regarding the right lower extremity: She is in a posterior splint. I did not take the splint down for exam today. She does have motion of all toes in the right lower extremity. She has capillary refill is less than 3 seconds on all toes. Skin no rashes, warm and dry Psychiatric A+Ox3, euthymic affect Results & Data Results & Data Laboratory Results . Diagnostic Findings X-ray images of the tibia and fibula on 01/09/2025: I independently reviewed these images. I agree with the impression below. IMPRESSION: 1. Spiral fracture of the distal diaphysis of the right tibia located 10 cm proximal to the ankle. There is 1.5 cm posterior displacement and 10° posterior angulation. 2. There is a fracture of the proximal fibular shaft located 9 cm below the tibial plateau and 12 cm from the tibial fracture. This likely indicates disruption of the interosseous ligament between those 2 levels. PG Care Time/CCT Total # of Minutes Spent Total Time Spent with Patient: Total time spent is greater than 50% in coordination of care (as documented) at patient's floor/unit and/or counseling patient: Coding Level of Care Code 98104 IN/OBS CONSULT LVL 4,60M (59 - DECISION FOR SURGERY) Diagnoses Fracture tibia/fibula S82.201A; S82.401A Encounter type: initial encounter Fracture type: closed Laterality: right (1) Fracture tibia/fibula Encounter type: initial encounter Fracture type: closed Laterality: right Qualified Code(s): S82.201A - Unspecified fracture of shaft of right tibia, initial encounter for closed fracture; S82.401A - Unspecified fracture of shaft of right fibula, initial encounter for closed fracture
--- NOTE | 2025-01-10 08:00 | XRay Report ---
EXAM: XR chest 1V portable CLINICAL HISTORY: pre-op TECHNIQUE: An X-ray image of the chest is obtained in AP projection. COMPARISON: 01/17/2024, 07/29/2024 FINDINGS: Pulmonary Parenchyma: No lung consolidation/collapse or focal opacities seen. No pleural effusion. Heart and Mediastinum: Mild cardiomegaly mediastinal widening or masses. No hilar or mediastinal lymphadenopathy. Bony Thorax: Bony thorax appears intact without fractures or deformities. Soft Tissues: Soft tissues overlying the chest wall are unremarkable. IMPRESSION: 1. No lung consolidation/collapse or focal opacities seen. The previously seen bilateral pulmonary opacities on the prior CT dated 07/29/2024 are difficult to assess by x-ray; follow-up CT is advised. 2. No pleural effusion. 3. Mild cardiomegaly. Electronically signed by Miah Petit 01-10-2025 07:59 AM
[2025-01-10] MEDS: ACETAMINOPHEN 500 MG TAB PO SCH (08:14)
[2025-01-10] MEDS: FUROSEMIDE 20 MG TAB PO SCH (08:15)
[2025-01-10] MEDS: METOPROLOL SUCC 25MG EXT REL TAB PO SCH (08:15)
[2025-01-10] MEDS: allopurinoL 100 MG TAB PO SCH (08:15)
[2025-01-10] MEDS: PANTOprazole 40 MG TAB PO SCH (08:15)
[2025-01-10] MEDS: ISOSORBIDE MONO EXTENDED REL 60 MG TABCR PO SCH (08:16)
[2025-01-10 08:51] LABS: Hematocrit (blood only) 31.4 % (37.0-47.0); Hemoglobin 10.4 g/dl (12.0-16.0); Mean Corpuscular Hemoglobin 29.1 pg (25.0-34.0); Mean Corpuscular Hgb Conc 33.1 g/dL (32.0-36.0); Mean Corpuscular Volume 87.7 fL (80.0-100.0); Mean Platelet Volume 11.4 fL (9.4-12.4); Platelet Count 142 K/uL (130-400); RDW Coefficient of Variation 14.6 % (11.5-14.5); RDW Standard Deviation 46.7 fL (36.4-46.3); Red Blood Count 3.58 M/uL (4.20-5.40); White Blood Count 5.54 K/ul (4.8-10.8)
[2025-01-10 09:05] LABS: BUN Creatinine Ratio 22.8 (10-20); Calcium 8.9 mg/dl (8.6-10.3); Creatinine Clr Calc Pharmacy 34.3 ml/min; Potassium 3.8 mmol/L (3.5-5.1)
[2025-01-10] MEDS: TAMSULOSIN HCL 0.4 MG CAP PO SCH (09:16)
--- NOTE | 2025-01-10 10:38 | Anesthesiology Consultation ---
Date of Service January 10, 2025 Assessment & Plan (1) Encounter for pre-operative examination: Chart Review Chart Review: Acceptable Risk for Surgery History Surgery Operation Date: 01/10/25 09:10 Proposed Procedures p Right Tibia Intramedullary Nail - Adrian Jarvis DO Height/Weight Height: 5 ft 4 in Weight: 85.1 kg Allergies Allergy/AdvReac Type Severity Reaction Status Date / Time adhesive Allergy Intermediate SKIN Verified 01/07/25 11:01 BLISTERS, LOSES SKIN HERE AND THERE adhesive tape Allergy Intermediate Skin Verified 01/10/25 07:31 blisters, loses skin here and there sulfamethoxazole AdvReac Severe CAUSED A Verified 01/07/25 11:01 [From Bactrim] PNEUMONITIS PER PT'S DAUGHTER trimethoprim [From Bactrim] AdvReac Severe CAUSED A Verified 01/07/25 11:01 PNEUMONITIS PER PT'S DAUGHTER amoxicillin [From Augmentin] AdvReac Intermediate Diarrhea Verified 01/07/25 11:01 clavulanic acid AdvReac Intermediate Diarrhea Verified 01/07/25 11:01 [From Augmentin] Medications Home Medications Medication Instructions Recorded Confirmed Last Taken aspirin 81 mg tablet,delayed 81 mg PO HS 03/31/22 01/09/25 01/16/24 release (Adult Low Dose Aspirin) multivitamin 1 tab PO QAM 11/08/22 01/09/25 01/16/24 magnesium chloride 71.5 mg 71.5 mg PO QPM 06/07/23 01/09/25 01/16/24 (magnesium chloride) tablet,delayed release (Slow-Mag) clopidogrel 75 mg tablet (Plavix) 75 mg PO QAM #90 tabs 04/24/24 01/09/25 Unknown isosorbide mononitrate 60 mg 60 mg PO QAM #90 tabs 06/14/24 01/09/25 Unknown tablet,extended release 24 hr metoprolol succinate 25 mg 25 mg PO QAM #90 tabs 07/16/24 01/09/25 Unknown tablet,extended release 24 hr ipratropium bromide 21 mcg (0.03 2 spray intranasal BID #30 mL 08/15/24 01/09/25 Unknown %) nasal spray furosemide 20 mg tablet 20 mg PO DAILY edema #90 tabs 10/21/24 01/09/25 Unknown oxycodone-acetaminophen 5 mg-325 1 tab PO DAILY PRN pain #30 tabs 11/04/24 01/09/25 Unknown mg tablet (Percocet) sacubitril 24 mg-valsartan 26 mg 1 tab PO BID #180 tabs 12/02/24 01/09/25 Unknown tablet (Entresto) bupropion HCl 150 mg tablet,12 hr 150 mg PO BID 30 days #60 ea 01/07/25 01/09/25 Unknown sustained-release (Wellbutrin SR) albuterol sulfate 90 mcg/actuation 1 puff inhalation Q6 PRN Shortness 01/09/25 01/09/25 Unknown aerosol inhaler Of Breath Or Wheezing allopurinol 100 mg tablet 100 mg PO DAILY 01/09/25 01/09/25 Unknown amantadine HCl 100 mg capsule 100 mg PO BID 01/09/25 01/09/25 Unknown pantoprazole 40 mg tablet,delayed 40 mg PO DAILY 01/09/25 01/09/25 Unknown release Active Medications Generic Name Dose Route Start Last Admin Trade Name Freq PRN Reason Stop Dose Admin Acetaminophen 1,000 mg 01/10/25 09:00 01/10/25 08:14 Acetaminophen 500 Mg Tab PO 02/09/25 08:59 1,000 mg TID HI Administration Allopurinol 100 mg 01/10/25 09:00 01/10/25 08:15 Allopurinol 100 Mg Tab PO 02/09/25 08:59 100 mg DAILY HI Administration Amantadine HCl 100 mg 01/10/25 01:38 01/10/25 08:15 Amantadine Hcl 100 Mg Capsule PO 02/09/25 01:37 100 mg BID HI Administration Bupropion HCl 150 mg 01/10/25 01:38 01/10/25 08:15 Bupropion Sr 150 Mg Tabcr PO 02/09/25 01:37 150 mg BID HI Administration Furosemide 20 mg 01/10/25 09:00 01/10/25 08:15 Furosemide 20 Mg Tab PO 02/09/25 08:59 20 mg DAILY HI Administration Ipratropium [place] 2 sprays 01/10/25 01:38 01/10/25 08:14 Ipratropium [place] Nasal [place] 0.03% 30 Ml TONYA 02/09/25 01:37 2 sprays BID HI Administration Isosorbide Mononitrate 60 mg 01/10/25 09:00 04/18/25 08:16 Isosorbide [place] Extended Rel 60 Mg Tabcr PO 02/09/25 08:59 60 mg QAM HI Administration Magnesium Chloride 64 mg 01/10/25 02:00 01/10/25 02:52 Magnesium Chloride W/Calcium 64mg Delayed Rel Tab PO 02/09/25 01:59 64 mg QPM HI Administration Metoprolol Succinate 25 mg 01/10/25 09:00 01/10/25 08:15 Metoprolol Succ 25mg Ext Rel Tab PO 02/09/25 08:59 25 mg QAM HI Administration Morphine Sulfate 2 mg 01/10/25 01:38 01/10/25 07:16 Morphine Sulfate 2 Mg/Ml Carp IV 01/24/25 01:37 2 mg Q3H PRN Administration Pain (6,7,8,9,10) Pantoprazole Sodium 40 mg 01/10/25 09:00 01/10/25 08:15 Pantoprazole 40 Mg Tab PO 02/09/25 08:59 40 mg DAILY HI Administration Sacubitril/Valsartan 1 tab 01/10/25 01:38 01/10/25 08:16 Valsartan/Sacubitril 26/24mg Tab PO 02/09/25 01:37 1 tab BID HI Administration Tamsulosin HCl 0.4 mg 01/10/25 09:00 01/10/25 09:16 Tamsulosin Hcl 0.4 Mg Cap PO 02/09/25 08:59 0.4 mg QAM HI Administration Past Medical History Medical History (Updated 01/10/25 @ 10:36 by Diego Shell MD) Gout Nonobstructive atherosclerosis of coronary artery (Unknown) Peripheral neuropathy PAD (peripheral artery disease) CKD (chronic kidney disease), stage III HTN (hypertension) Multiple sclerosis On home oxygen therapy 2L prn HS History of COVID-19 03/2022--mild symptoms, no sypmtoms now Acute on chronic systolic heart failure new diagnosis 12/2022--follows with Dr. Santa History of kidney stones Arthritis History of bleeding ulcers REMOTE HX History of blood clots LEGS/REASON FOR BLOOD THINNER...NO CLOTS SINCE ON BLOOD THINNER Peripheral vascular disease Past Family History Family History Mother Family history of diabetes mellitus Aunt Family history of diabetes mellitus Sister Family history of diabetes mellitus Sister Family history of diabetes mellitus Uncle Family history of diabetes mellitus Uncle Family history of esophageal cancer Daughter Family history of reaction to anesthesia nausea/vomiting Past Surgical History Surgical History History of cataract surgery History of amputation of toe 04/13/22 Dr. Montano--Left foot transmetatarsal amputation History of cardiac cath 12/29/22 @ [facility]--no stents placed---follows with Dr. Santa History of toe surgery JANUARY 2022 - [facility]/2 TOES REMOVED History of colonoscopy Colonoscopy 08/22/23, repeat 3 years in 2025 History of endoscopy History of shoulder surgery History of hysterectomy History of cholecystectomy History of vascular surgery AORTIC BI FEMORAL BYPASS PER PT History of vascular surgery STENTS BOTH FEMORALS , MULTIPLE , HX CLOTTING AFTERWARDS ...AORTIC BI FEMORAL BYPASS History of bowel resection FOR COLON CA ~2017. Social History Smoking Status: Current every day smoker tobacco type: cigarettes and e-cigarettes Smoking cigarettes per day: vapes daily (advised on policy) Do You Dip or Chew Tobacco: No Hx Alcohol Use: No Hx Substance Use: No substance use type: does not use Physical Exam Vital Signs Last Vital Signs Temp 36.9 C 01/10/25 07:50 Pulse 78 01/10/25 07:50 Resp 16 01/10/25 07:50 BP 151/60 H 01/10/25 07:50 Pulse Ox 95 01/10/25 07:50 O2 Del Method Room Air 01/10/25 07:50 O2 Flow Rate 0 01/09/25 21:23 Testing Laboratory Results 01/10/25 07:55 01/10/25 07:55 PT 10.5 Seconds (9.0-12.0) 01/09/25 19:15 INR 1.0 (0.9-1.1) 01/09/25 19:15 APTT 20 Seconds (21-31) L 01/09/25 19:15 Electrocardiogram Date: 01/10/25 Findings: + NSR @ (86) and + NSST changes Echocardiogram Date: 07/30/24 EF: 55-60% Valvular Disease: + no significant valvular disease Cardiac Catheterization Date: 12/29/22 Location: non occlusive coronary disease - EF 25-30%
--- NOTE | 2025-01-10 11:00 | History & Physical Bridge Note ---
Date of Service January 10, 2025 History & Physical Bridge Note I have examined the patient, reviewed the History & Physical and in the interval since the performance of the History & Physical I have noted the following changes of clinical significance: no changes noted
[2025-01-10] MEDS ORDERED: fentaNYL citrate PF 100 MCG/2 ML VIAL ONE (11:33)
[2025-01-10] MEDS ORDERED: ONDANSETRON INJ 2 MG/ML 2 ML VIAL ONE (11:34)
[2025-01-10] MEDS ORDERED: DEXAMETHASONE SOD INJ 4 MG/ML VIAL ONE (11:34)
[2025-01-10] MEDS ORDERED: ROCURONIUM BROMIDE 10 MG/ML 5 ML VIAL IV ONE ×2 (11:34→11:35)
[2025-01-10] MEDS ORDERED: LIDOCAINE 2% 2 ML VIAL/AMP(20MG/ML) INFIL ONE ×2 (11:34)
[2025-01-10] MEDS ORDERED: PROPOFOL IV EMULSION 10 MG/ML 20 ML VIAL IV ONE (11:34)
[2025-01-10] MEDS ORDERED: ONDANSETRON INJ 2 MG/ML 2 ML VIAL IV PRN (11:49)
[2025-01-10] MEDS ORDERED: ALBUTEROL 0.083% NEBU SOLN 3 ML VIAL INH PRN (11:49)
[2025-01-10] MEDS ORDERED: PROMETHAZINE HCL 6.25 MG in SODIUM CHLORIDE 0.9% 50 ML IV PRN (11:49)
[2025-01-10] MEDS ORDERED: ATROPINE SULFATE 0.1 MG/ML 10ML SYR IV PRN (11:49)
[2025-01-10] MEDS: ceFAZolin 2000MG 2,000 MG/15 ML SYR IV ONE (11:59)
[2025-01-10] MEDS ORDERED: ETOMIDATE 2 MG/ML 20 ML VIAL IV ONE (12:12)
[2025-01-10] MEDS: TRANEXAMIC ACID / 0.7% NACL 1000MG/100ML BAG IV ONE (12:24)
[2025-01-10] MEDS ORDERED: SUGAMMADEX SODIUM 200 MG/2 ML VIAL IV ONE (12:27)
[2025-01-10] MEDS: BUPIVACAINE 0.5 % 5 MG/1 ML MPF 30ML VIAL ONE (13:26)
--- NOTE | 2025-01-10 14:09 | Fluoroscopy Report ---
FL tibia/fibula RT 2V CLINICAL HISTORY: Right IM tibia nail COMPARISON STUDY: 01/09/2025 FLUOROSCOPY TIME: 60 seconds FLUOROSCOPY IMAGES: 6 EXPOSURE DOSE: 2 mGy FINDINGS: Fluoroscopy was provided for tibial nail. IMPRESSION: Intraoperative fluoroscopy. ACT 112: Negative or not required by law. Electronically signed by: Warren Jett M.D. 01/10/2025 2:07 PM
[2025-01-10] MEDS: HYDROmorphone INJ 1 MG/ML SYRINGE IV PRN (14:22)
--- NOTE | 2025-01-10 14:34 | Electrocardiogram Report ---
Test Reason : Blood Pressure : */* mmHG Vent. Rate : 86 BPM Atrial Rate : 93 BPM P-R Int : 158 ms QRS Dur : 74 ms QT Int : 386 ms P-R-T Axes : -26 45 78 degrees QTcB Int : 461 ms Sinus rhythm Low voltage QRS Nonspecific ST and T wave abnormality Abnormal ECG When compared with ECG of 22-Aug-2023 11:30, T wave inversion no longer evident in Anterior leads QT has lengthened Confirmed by Erasmo Hoyt ([id number]) on 01/10/2025 2:34:24 PM Referred By: REFERRED SELF Confirmed By: Erasmo Hoyt
--- NOTE | 2025-01-10 14:41 | Operative Report ---
PG Post Operative Report Pre & Post Diagnosis Operation Date: 01/10/25 09:10 Pre-Op Diagnosis: Fracture tibia/fibula Post-Op Diagnosis: Fracture tibia/fibula I identified the patient and participated in the time-out.: Yes Procedure Operation Date: 01/10/25 09:10 Actual Procedures p Right Tibia Intramedullary Nail fixation right tibia (Right) - Adrian hoang DO Surgeon Adrian Jarvis DO Climatologist Nael Penn PA-C Estimated Blood Loss 10 Findings Consistent with Post-Op Diagnosis Specimens None Description of Procedure On January 10, 2025 Bee was brought down from her hospital room to the preoperative holding area. The operative extremity identified and signed. She was given a preoperative antibiotic. She was taken back to the operative room and laid on table supine position. She was put under general anesthesia. The right leg was prepped and draped sterile fashion. A timeout was done. The patient and the operative extremity was properly identified. Fluoroscopic images were used to try to reduce the fracture. There was a little bit of a comminution posteriorly. I was unable to hold adequate reduction or even obtain good reduction with traction and manipulation. A small incision was then made over the medial border of the tibia. Dissection was taken down directly to the fracture site. A clamp was placed around the fracture. I was able to get an anatomic reduction of the fracture with the clamp. An incision was then made over the medial border the patella. Dissection was taken down through the fascia. A medial patellar arthrotomy was used. A small portion of fat pad was excised. A guidepin was then placed at the anterior tip of the tibia and advanced on the central aspect of the canal. Appropriate placement was checked on orthogonal fluoroscopic images. An opening reamer was then used to open the tibial canal. A guidewire was then placed down to the distal end of the tibia. The tibial nail measured to be 300 mm. Sequential reaming up to an 11.5 reamer was done. A size 10 x 300 mm Synthes tibial nail was then impacted into place. Appropriate placement was checked on fluoroscopic imaging. A cannula was then advanced from an outrigger to the medial cortex of the tibia. 2 locking screws were placed proximally. 2 screws were then placed distally through a perfect [place] technique. Final fluoroscopic images showed good alignment of the fracture and good alignment of the hardware. The incision sites were all irrigated. Surrounding soft tissues were injected with Marcaine. The incision sites were closed with 3-0 Vicryl and the combination of day and nylon sutures. She was then placed in a trauma splint. She was then extubated and transferred back to a hospital bed. She was taken to the postanesthesia care unit in stable condition. She tolerated the procedure well. Nael Penn PA-C, was present for the entire procedure. He was critical for patient positioning, prepping, draping, retraction exposure, wound closure and application of sterile dressing. I attest to the content of the Intraoperative Record and any orders documented therein. Any exceptions are noted below.
--- NOTE | 2025-01-10 15:14 | Anesthesiology Progress Note ---
Date of Service January 10, 2025 Anesthesia Post Procedure Vital Signs Vital Signs: Temp Pulse Pulse Resp BP BP Pulse Ox 01/10/25 14:55 36.6 C 64 12 144/66 H 97 01/10/25 14:45 66 12 135/79 100 01/10/25 14:35 66 14 147/64 H 98 01/10/25 14:25 66 14 155/63 H 98 01/10/25 14:15 80 14 149/69 H 97 01/10/25 14:05 79 12 148/60 H 100 01/10/25 13:55 36.8 C 83 18 142/53 H 99 01/10/25 07:50 36.9 C 78 16 151/60 H 95 01/10/25 01:30 36.8 C 85 18 175/81 H 95 01/10/25 00:00 70 16 153/100 H 97 01/09/25 23:12 72 01/09/25 22:45 76 20 131/89 96 01/09/25 22:30 74 17 95 01/09/25 22:03 78 25 H 01/09/25 21:42 77 33 H 98 01/09/25 21:23 36.5 C 88 19 157/100 H 97 01/09/25 21:06 71 23 80 L 01/09/25 21:01 157/101 H 01/09/25 21:01 157/101 H 01/09/25 20:39 65 16 94 01/09/25 20:36 63 19 96 01/09/25 20:06 70 26 H 90 01/09/25 20:01 160/53 H 01/09/25 20:01 160/53 H 01/09/25 20:01 160/53 H 01/09/25 19:51 66 16 95 01/09/25 19:36 65 15 91 01/09/25 19:28 01/09/25 19:15 73 13 97 01/09/25 19:14 36.8 C 81 19 147/72 H 95 01/09/25 19:13 146/65 H 01/09/25 19:13 146/65 H 01/09/25 19:13 146/65 H 01/09/25 19:12 81 01/09/25 18:56 97 O2 Del Method O2 Flow Rate 01/10/25 14:55 Room Air 2 01/10/25 14:45 Room Air 2 01/10/25 14:35 Room Air 2 01/10/25 14:25 Room Air 2 01/10/25 14:15 Nasal Cannula 2 01/10/25 14:05 Oxymask 3 01/10/25 13:55 Oxymask 6 01/10/25 07:50 Room Air 01/10/25 01:30 Room Air 01/10/25 00:00 Room Air 01/09/25 23:12 01/09/25 22:45 01/09/25 22:30 01/09/25 22:03 01/09/25 21:42 01/09/25 21:23 Room Air 0 01/09/25 21:06 01/09/25 21:01 01/09/25 21:01 01/09/25 20:39 01/09/25 20:36 01/09/25 20:06 01/09/25 20:01 01/09/25 20:01 01/09/25 20:01 01/09/25 19:51 01/09/25 19:36 01/09/25 19:28 Room Air 01/09/25 19:15 01/09/25 19:14 Room Air 01/09/25 19:13 01/09/25 19:13 01/09/25 19:13 01/09/25 19:12 01/09/25 18:56 Room Air Pain Intensity Right Lower Leg: Pain Intensity: 12 Transfer of Care Handoff Completed per policy Notes Mental Status: alert / awake / arousable Patient Amnestic to Procedure: Yes Nausea / Vomiting: adequately controlled Pain: adequately controlled Airway Patency, RR, SpO2: stable & adequate BP & HR: stable & adequate Hydration State: stable & adequate Anesthetic Complications: no major complications apparent
[2025-01-10] MEDS: ceFAZolin 2,000 MG/15 ML IV PUSH IV ONE (15:26)
--- NOTE | 2025-01-10 15:37 | Hospitalist Progress Note ---
Date of Service January 10, 2025 Assessment & Plan (1) Fracture tibia/fibula: Plan 79 year old with PMH of multiple sclerosis, PVD, CKD, presents to the ER after a fall off stool with right ankle pain and tub/fib fracture on XR her daughter works as a physician with [employer] seen by orthopedic, s/p right tibia intra-medullary nail fixation right tibia by Dr. Adrian Jarvis on 01/10 (Monday) #Right tib/fib fracture s/p right tibia intra-medullary nail fixation by Dr. Adrian Jarvis on 01/10 Consult orthopedics per admitting doctor; EKG and CXR pre-operatively, revised cardiac risk index 1, 6% risk of major cardiac event over the next 30 days outpatient DEXA to r/o osteoporsosi 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) Continue metoprolol succinate + Entresto, these should not be held pre- operatively Continue her usual furosemide 20mg PO no respiratory distress #CKD IV creatinine of 1.45 baseline between 1.6--2.0 #Peripheral artery disease Hold aspirin and clopidogrel preoperatively Previously on atorvastatin but stopped due to leg cramping and memory issues #Multiple sclerosis Continue amantadine #History of gout Continue allopurinol VTE Prophylaxis - deferred pre-operatively Disposition - admit to med/surg Admission and Anticipated Discharge Date Admission Date: January 09, 2025 Subjective fall episode; plan for surgical repair her daughter is a physician they are agreeable for placement to STR chronic neuropathy; prior falling episode Review of Systems Constitutional: Constitutional: No Weight Change, No Fever, No Chills, No Night Sweats, No Fatigue, No Malaise Cardiovascular: no chest pain; no palpitation; no orthopnea Gastrointestinal: No Nausea, No Vomiting, No Diarrhea, No Constipation, No Pain, No Heartburn, No Anorexia, Musculoskeletal: No Arthralgias, No Myalgias, No Joint Swelling, No Joint Stiffness, No Back Pain, No Neck Pain, No Injury History Neuro: fall Psych: No Anxiety/Panic, No Depression, No Insomnia, No Personality Changes, No Delusions, No Rumination, No SI/HI/AH/VH, No Social Issues, No Memory Changes, No Violence/Abuse Hx., No Eating Concerns Physical Exam Physical Exam: VITALS: Reviewed. WEIGHT/BMI reviewed. GEN: Healthy appearing, well-developed, NAD. -Head: NC/AT; -Mouth and throat: MMM. Normal gums, muc golden, palate,. Good dentition. NECK: Supple, with no masses. CV: RRR, no m/r/g. LUNGS: CTAB, no w/r/c. ABD: Soft, NT/ND, NBS, no masses or organomegaly. SKIN: Warm, well perfused. No skin rashes or abnormal lesions. 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 NEURO: AAox3 Results & Data Results & Data Vital Signs (Past 12 Hours) Vital Signs Temp Pulse Pulse Resp BP Pulse Ox O2 Del Method 01/10/25 15:13 36.4 C L 64 16 136/74 93 Nasal Cannula 01/10/25 14:55 36.6 C 64 12 144/66 H 97 Room Air 01/10/25 14:45 66 12 135/79 100 Room Air 01/10/25 14:35 66 14 147/64 H 98 Room Air 01/10/25 14:25 66 14 155/63 H 98 Room Air 01/10/25 14:15 80 14 149/69 H 97 Nasal Cannula 01/10/25 14:05 79 12 148/60 H 100 Oxymask 01/10/25 13:55 36.8 C 83 18 142/53 H 99 Oxymask 01/10/25 07:50 36.9 C 78 16 151/60 H 95 Room Air O2 Flow Rate 01/10/25 15:13 2 01/10/25 14:55 2 01/10/25 14:45 2 01/10/25 14:35 2 01/10/25 14:25 2 01/10/25 14:15 2 01/10/25 14:05 3 01/10/25 13:55 6 01/10/25 07:50 Laboratory Results Abnormal Lab Results 01/09/25 01/09/25 01/10/25 19:15 19:56 07:55 WBC 5.48 5.54 RBC 3.90 L 3.58 L Hgb 11.4 L 10.4 L POC Hgb 11.2 L Hct 33.4 L 31.4 L POC Hct 33 L MCV 85.6 87.7 MCH 29.2 29.1 MCHC 34.1 33.1 RDW Std Deviation 45.8 46.7 H RDW Coeff of Aminah 14.6 H 14.6 H Plt Count 148 142 MPV 11.2 11.4 Immature Gran % (Auto) 0.4 Neut % (Auto) 64.9 Lymph % (Auto) 24.5 [place] % (Auto) 6.9 Eos % (Auto) 2.9 Baso % (Auto) 0.4 Neut # (Auto) 3.56 Lymph # (Auto) 1.34 [place] # (Auto) 0.38 Eos # (Auto) 0.16 Baso # (Auto) 0.02 Immature Gran # (Auto) 0.02 PT 10.5 INR 1.0 APTT 20 L PTT Ratio 0.7 POC Sodium 142 Sodium 141 145 POC Potassium 3.4 Potassium 3.6 3.8 POC Chloride 105 Chloride 108 H 110 H Carbon Dioxide 26 30 POC Total CO2 23 L Anion Gap 7 5 POC Anion Gap 18.0 POC BUN 38 H BUN 41 H 33 H Creatinine 1.89 H 1.45 H D POC Creatinine 2.0 H Est Cr Clr Drug Dosing 25.7 34.3 eGFR 27.03 37.15 BUN/Creatinine Ratio 21.7 H 22.8 H Glucose 159 H 116 H POC Glucose (other) 156 H Calcium 8.9 8.9 POC Ioniz Calcium Janelle 1.20 Magnesium 1.8 Total Bilirubin 0.8 AST 10 L ALT 10 Alkaline Phosphatase 114 H Total Protein 6.1 Albumin 3.8 Globulin 2.3 L Albumin/Globulin Ratio 1.7 25-OH Vitamin D Total 36.2 Diagnostic Findings Ankle X-Ray 01/09/25 19:28 Exam(s): XR RIGHT ANKLE, 3+ views EXAM: XR Right Ankle, 2 Views CLINICAL HISTORY: Reason for exam: fall. TECHNIQUE: Frontal and lateral views of the right ankle. COMPARISON: No relevant prior studies available. FINDINGS: Bones/joints: There is a spiral fracture of the distal right tibial metaphysis with 1.5 cm posterior displacement and 11° posterior angulation of the distal fracture fragment. There 2 oblique views of the ankle and right lower leg. The ankle mortise joint to is not well evaluated due to the positioning but no acute fracture is visible at the level of the ankle. Bone marrow density is normal. No dislocation. Soft tissues: Unremarkable. IMPRESSION: 1. There is a spiral fracture of the distal right tibial metaphysis with 1.5 cm posterior displacement and 11° posterior angulation of the distal fracture fragment. 2. Please see tib-fib films for description and proximal fibular fracture. 3. The ankle mortise joint to is not well evaluated due to the positioning but no acute fracture is visible at the level of the ankle. Electronically signed by: Josemanuel Huddleston MD 01/09/25 21:15 PM Tibia/Fibula X-Ray 01/09/25 19:28 Exam(s): XR RIGHT TIB/FIB, 2 views EXAM: XR Right Tibia and Fibula, 2 Views CLINICAL HISTORY: Reason for exam: fall. TECHNIQUE: Frontal and lateral views of the right tibia and fibula. COMPARISON: No relevant prior studies available. FINDINGS: Bones/joints: Spiral fracture of the distal diaphysis of the right tibia located 10 cm proximal to the ankle. There is 1.5 cm posterior displacement and 10° posterior angulation. There is a fracture of the proximal fibular shaft located 9 cm below the tibial plateau and 12 cm from the tibial fracture. The knee and ankle joints appear normally aligned. Soft tissues: Unremarkable. No radiopaque foreign body. IMPRESSION: 1. Spiral fracture of the distal diaphysis of the right tibia located 10 cm proximal to the ankle. There is 1.5 cm posterior displacement and 10° posterior angulation. 2. There is a fracture of the proximal fibular shaft located 9 cm below the tibial plateau and 12 cm from the tibial fracture. This likely indicates disruption of the interosseous ligament between those 2 levels. Electronically signed by: Josemanuel Huddleston MD 01/09/25 21:16 PM Chest X-Ray 01/10/25 06:00 EXAM: XR chest 1V portable CLINICAL HISTORY: pre-op TECHNIQUE: An X-ray image of the chest is obtained in AP projection. COMPARISON: 01/17/2024, 07/29/2024 FINDINGS: Pulmonary Parenchyma: No lung consolidation/collapse or focal opacities seen. No pleural effusion. Heart and Mediastinum: Mild cardiomegaly mediastinal widening or masses. No hilar or mediastinal lymphadenopathy. Bony Thorax: Bony thorax appears intact without fractures or deformities. Soft Tissues: Soft tissues overlying the chest wall are unremarkable. IMPRESSION: 1. No lung consolidation/collapse or focal opacities seen. The previously seen bilateral pulmonary opacities on the prior CT dated 07/29/2024 are difficult to assess by x-ray; follow-up CT is advised. 2. No pleural effusion. 3. Mild cardiomegaly. Electronically signed by Miah Petit 01-10-2025 07:59 AM Tibia/Fibula X-Ray 01/10/25 11:00 FL tibia/fibula RT 2V CLINICAL HISTORY: Right IM tibia nail COMPARISON STUDY: 01/09/2025 FLUOROSCOPY TIME: 60 seconds FLUOROSCOPY IMAGES: 6 EXPOSURE DOSE: 2 mGy FINDINGS: Fluoroscopy was provided for tibial nail. IMPRESSION: Intraoperative fluoroscopy. ACT 112: Negative or not required by law. Electronically signed by: Warren Jett M.D. 01/10/2025 2:07 PM Medications Administered Current Inpatient Medications Acetaminophen (Acetaminophen 500 Mg Tab) 1,000 mg PO TID [facility] Stop: 02/09/25 08:59 Last Admin: 01/10/25 15:26 Dose: Not Given Albuterol (Albuterol Hfa 8 Gm Inhaler) 1 puffs INH Q6 PRN PRN Reason: Shortness Of Breath Or Wheezing Stop: 02/09/25 01:37 Allopurinol (Allopurinol 100 Mg Tab) 100 mg PO DAILY HI Stop: 02/09/25 08:59 Last Admin: 01/10/25 08:15 Dose: 100 mg Amantadine HCl (Amantadine Hcl 100 Mg Capsule) 100 mg PO BID HI Stop: 02/09/25 01:37 Last Admin: 01/10/25 08:15 Dose: 100 mg Aspirin (Aspirin 81 Mg Ectab) 81 mg PO BID HI Stop: 02/09/25 20:59 Bupropion HCl (Bupropion Sr 150 Mg Tabcr) 150 mg PO BID HI Stop: 02/09/25 01:37 Last Admin: 01/10/25 08:15 Dose: 150 mg Furosemide (Furosemide 20 Mg Tab) 20 mg PO DAILY HI Stop: 02/09/25 08:59 Last Admin: 01/10/25 08:15 Dose: 20 mg Cefazolin Sodium (Ancef 1000mg) 1,000 mg in 7.5 mls @ 2.5 mls/min IV Q8H [facility]; Protocol Stop: 01/11/25 04:02 Ipratropium [place] (Ipratropium [place] Nasal [place] 0.03% 30 Ml) 2 sprays TONYA BID [facility] Stop: 02/09/25 01:37 Last Admin: 01/10/25 08:14 Dose: 2 sprays Isosorbide Mononitrate (Isosorbide [place] Extended Rel 60 Mg Tabcr) 60 mg PO QAM [facility] Stop: 02/09/25 08:59 Last Admin: 01/10/25 08:16 Dose: 60 mg Magnesium Chloride (Magnesium Chloride W/Calcium 64mg Delayed Rel Tab) 64 mg PO QPM [facility] Stop: 02/09/25 01:59 Last Admin: 01/10/25 02:52 Dose: 64 mg Metoprolol Succinate (Metoprolol Succ 25mg Ext Rel Tab) 25 mg PO QAM [facility] Stop: 02/09/25 08:59 Last Admin: 01/10/25 08:15 Dose: 25 mg Morphine Sulfate (Morphine Sulfate 2 Mg/Ml Carp) 1 mg IV Q3H PRN PRN Reason: Pain (1,2,3,4,5) & Pre PT Stop: 01/24/25 01:37 Morphine Sulfate (Morphine Sulfate 2 Mg/Ml Carp) 2 mg IV Q3H PRN PRN Reason: Pain (6,7,8,9,10) Stop: 01/24/25 01:37 Last Admin: 01/10/25 07:16 Dose: 2 mg Oxycodone HCl (Oxycodone Hcl Ir 5 Mg Tab (Immediate Release)) 2.5 mg PO Q4H PRN PRN Reason: MODERATE Pain (4,5,6) & Pre PT Stop: 01/24/25 01:37 Oxycodone HCl (Oxycodone Hcl Ir 5 Mg Tab (Immediate Release)) 5 mg PO Q4H PRN PRN Reason: SEVERE Pain (7,8,9,10) Stop: 01/24/25 01:37 Pantoprazole Sodium (Pantoprazole 40 Mg Tab) 40 mg PO DAILY [facility] Stop: 02/09/25 08:59 Last Admin: 01/10/25 08:15 Dose: 40 mg Sacubitril/Valsartan (Valsartan/Sacubitril 26/24mg Tab) 1 tab PO BID [facility] Stop: 02/09/25 01:37 Last Admin: 01/10/25 08:16 Dose: 1 tab Tamsulosin HCl (Tamsulosin Hcl 0.4 Mg Cap) 0.4 mg PO QAM [place] Stop: 02/09/25 08:59 Last Admin: 01/10/25 09:16 Dose: 0.4 mg PG Care Time/CCT Total # of Minutes Spent Total Time Spent with Patient: Total time 20 minutes spent is greater than 50% in coordination of care (as documented) at patient's floor/unit and/or counseling patient: Coding Level of Care Code 48748 SUB INP/OBS CARE 10/19MIN Diagnoses Fracture tibia/fibula S82.201A; S82.401A Encounter type: initial encounter Fracture type: closed Laterality: right Time Spent (min) 20 (1) Fracture tibia/fibula Encounter type: initial encounter Fracture type: closed Laterality: right Qualified Code(s): S82.201A - Unspecified fracture of shaft of right tibia, initial encounter for closed fracture; S82.401A - Unspecified fracture of shaft of right fibula, initial encounter for closed fracture
[2025-01-10] MEDS: oxyCODONE HCL IR 5 MG TAB (IMMEDIATE RELEASE) PO PRN (17:12)
[2025-01-10] MEDS: TAMSULOSIN HCL 0.4 MG CAP PO ONE (18:04)
--- NOTE | 2025-01-10 19:32 | CT Scan Report ---
EXAM: CT lumbar spine wo con CLINICAL HISTORY: Fall episode at home. TECHNIQUE: CT non-contrast scan of lumbar spine done. Axial images obtained with reformatted coronal and sagittal images and submitted for interpretation. One of the following dose reduction techniques was utilized for this exam: Automated exposure control, adjustment of the mA and/or kV according to patient size, use of iterative reconstruction. DLP: 2175.9 mGy-cm, CTDI: 73.5 mGy. COMPARISON: None. FINDINGS: Vertebrae: L4 grade I spondylolithesis. No fractures, lytic or sclerotic lesions. Normal bone density without evidence of osteopenia or osteoporosis. Intervertebral Discs: Normal height and signal intensity of the intervertebral discs. No evidence of disc herniation, bulging, or significant degeneration. Spinal Canal and Neural Foramina: Spinal canal mild stenosis at L3-L4 level and severe stenosis at L4-L5 an L5-S1 levels with bilateral mild to moderate neural foraminal narrowing. Facet Joints: Facet arthropathy changes seen more at L4-S1 levels. Soft Tissues: Bilateral iliac vascular stents seen. IMPRESSION: 1. No fractures, lytic or sclerotic lesions. 2. L4 grade I spondylolithesis. 3. Spondylodegenerative changes with degenerative disc disease more at L4-L5 and L5-S1 levels, causing severe spinal canal stenosis Electronically signed by Miah Petit 01-10-2025 7:31 PM
[2025-01-10] MEDS: ONDANSETRON INJ 2 MG/ML 2 ML VIAL IV STA (19:59)
[2025-01-10] MEDS: ceFAZolin 1000MG 1,000 MG/7.5 ML SYR IV SCH (20:00)
--- NOTE | 2025-01-10 20:02 | CT Scan Report ---
EXAM: CT pelvis wo con CLINICAL HISTORY: fall episode at home, retention, r/o fracture TECHNIQUE: CT scan of the female pelvis was performed without the administration of intravenous contrast. Contiguous axial images were obtained from the iliac crests to the pubic symphysis. Coronal and sagittal reformatted images were also reviewed. One of the following dose reduction techniques was utilized for this exam. Automated exposure control, adjustment of the mA and/or kV according to patient size, and use of iterative reconstruction. COMPARISON: No previous studies are available for comparison. FINDINGS: Pelvic Bones: The pelvic bones are intact without evidence of fracture or destructive lesions. Evidence of hysterectomy. Bladder: The urinary bladder is seen distended with normal wall thickness, no stones or mass lesions. Rectum and Colon: The rectum and colon are within normal limits without evidence of wall thickening or abnormal enhancement. Pelvic Soft Tissues: The pelvic soft tissues are unremarkable without evidence of mass or abnormal fluid collection. Additional Findings: Iliac and bifemoral stents are noted. Occluded both external iliac and femoral vessels, for dedicated study. Focal dilatation of the left common femoral artery with atheromatous calcfication. Left inguiofemoral scarring likely post operative changes. IMPRESSION: 1. No evidence of pelvic fractures or dislocation. 2. The urinary bladder is seen distended with normal wall thickness, no stones or mass lesions. Electronically signed by Miah Petit 01-10-2025 7:46 PM
[2025-01-10] MEDS: ASPIRIN 81 MG ECTAB PO SCH (20:04)
--- NOTE | 2025-01-11 07:06 | Orthopedic Progress Note ---
Date of Service January 11, 2025 Assessment & Plan (1) Fracture of right tibia and fibula: Overall she seems to be doing fairly well. She is pretty sore in the leg which is to be expected but her pain is relatively well-controlled. I want her to keep her leg elevated is much as possible. Will keep her nonweightbearing for now. She is orthopedically stable for discharge when medically ready. I do want her on cefadroxil twice a day for 10 days for antimicrobial prophylaxis. I changed her aspirin to 81 mg twice a day to take with her Plavix for DVT prophylaxis as well. I called her in some Percocet for pain control. Full orthopedic discharge instructions were placed in the discharge summary. She can follow-up with orthopedics in 2 weeks. Remy Gamboa was seen and examined at bedside this morning. Overall she is doing fairly well. She is not having too much pain in the right leg. She is trying to keep her leg elevated. She has no complaints.. Review of Systems All systems reviewed & are unremarkable except as noted in HPI & below. Physical Exam On physical exam of the right leg, she has a trauma splint in place. Her leg is out full extension. She has minimal feeling in her feet, secondary to her neuropathy.. Results & Data Results & Data Laboratory Results . Diagnostic Findings . PG Care Time/CCT Total # of Minutes Spent Total Time Spent with Patient: Total time spent is greater than 50% in coordination of care (as documented) at patient's floor/unit and/or counseling patient: Coding Level of Care Code 49932 Post Operative Follow-Up Diagnoses Fracture of right tibia and fibula S82.201A; S82.401A
[2025-01-11 07:25] LABS: Hemoglobin 10.3 g/dl (12.0-16.0); Mean Corpuscular Hemoglobin 29.3 pg (25.0-34.0); Mean Corpuscular Hgb Conc 33.2 g/dL (32.0-36.0); Mean Corpuscular Volume 88.1 fL (80.0-100.0); Mean Platelet Volume 11.4 fL (9.4-12.4); Platelet Count 141 K/uL (130-400); RDW Coefficient of Variation 14.3 % (11.5-14.5); RDW Standard Deviation 46.2 fL (36.4-46.3); Red Blood Count 3.52 M/uL (4.20-5.40); White Blood Count 7.42 K/ul (4.8-10.8)
[2025-01-11 07:40] LABS: Calcium 8.6 mg/dl (8.6-10.3); Creatinine Clr Calc Pharmacy 30.1 ml/min; Potassium 3.9 mmol/L (3.5-5.1)
--- NOTE | 2025-01-11 11:48 | Hospitalist Progress Note ---
Date of Service January 11, 2025 Assessment & Plan (1) Fracture tibia/fibula: Plan 79 year old with PMH of multiple sclerosis, PVD, CKD, presents to the ER after a fall off stool with right ankle pain and tub/fib fracture on XR her daughter works as a physician with [employer] Raegan Araiza seen by orthopedic, s/p right tibia intra-medullary nail fixation right tibia by Dr. Adrian Jarvis on 01/10 (Monday) overall plan s/p surgery for tib/fib fracture, pain control with robaxin aspirn 81 BID for DVT prophylaxis STR, daughter, who is our IM physician, requested her wellbutrin to be dc given mood side effect. discharge on Monday to STR with antibiotics. #Right tib/fib fracture s/p right tibia intra-medullary nail fixation by Dr. Adrian Jarvis on 01/10 DVT prophylaxis with aspirin BID and plavix per orthopedic orthopedic started duricef for 10 days per admitting doctor; EKG and CXR pre-operatively, revised cardiac risk index 1, 6% risk of major cardiac event over the next 30 days outpatient DEXA to r/o osteoporsosi pain control-robaxin racing thought; daughter requested that we dc wellbutrin 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) Continue metoprolol succinate + Entresto, Continue furosemide 20mg PO no respiratory distress, stable #CKD IV creatinine of 1.45 baseline between 1.6--2.0 #Peripheral artery disease Hold aspirin and clopidogrel preoperatively Previously on atorvastatin but stopped due to leg cramping and memory issues #Multiple sclerosis Continue amantadine #History of gout Continue allopurinol VTE Prophylaxis - deferred pre-operatively Disposition - admit to med/surg Admission and Anticipated Discharge Date Admission Date: January 09, 2025 Subjective s/p surgery yesterday; still have pain, added robaxin need STR. in addition, wellbutrin result in sleep disturbance Review of Systems Constitutional: Constitutional: No Weight Change, No Fever, No Chills, No Night Sweats, No Fatigue, No Malaise Cardiovascular: no chest pain; no palpitation; no orthopnea Gastrointestinal: No Nausea, No Vomiting, No Diarrhea, No Constipation, No Pain, No Heartburn, No Anorexia, Musculoskeletal: No Arthralgias, No Myalgias, No Joint Swelling, No Joint Stiffness, No Back Pain, No Neck Pain, No Injury History Neuro: fall Psych: No Anxiety/Panic, No Depression, No Insomnia, No Personality Changes, No Delusions, No Rumination, No SI/HI/AH/VH, No Social Issues, No Memory Changes, No Violence/Abuse Hx., No Eating Concerns Physical Exam Physical Exam: VITALS: Reviewed. WEIGHT/BMI reviewed. GEN: Healthy appearing, well-developed, NAD. -Head: NC/AT; NECK: no JVD CV: RRR, no m/r/g. LUNGS: CTAB, no w/r/c. ABD: Soft, NT/ND, NBS, no masses or organomegaly. SKIN: Warm, well perfused. No skin rashes or abnormal lesions. 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 NEURO: AAox3 Results & Data Results & Data Vital Signs (Past 12 Hours) Vital Signs Temp Pulse Resp BP Pulse Ox O2 Del Method 01/11/25 07:09 36.9 C 77 18 161/78 H 97 Room Air 01/11/25 03:00 36.5 C 77 18 150/73 H 95 Room Air Laboratory Results Abnormal lab results 01/11/25 Range/Units 06:34 RBC 3.52 L (4.20-5.40) M/uL Hgb 10.3 L (12.0-16.0) g/dl Hct 31.0 L (37.0-47.0) % BUN 27 H (6-23) mg/dl Creatinine 1.65 H (0.6-1.2) mg/dl Fasting Glucose 182 H (70-99) mg/dl Diagnostic Findings Ankle X-Ray 01/09/25 19:28 Exam(s): XR RIGHT ANKLE, 3+ views EXAM: XR Right Ankle, 2 Views CLINICAL HISTORY: Reason for exam: fall. TECHNIQUE: Frontal and lateral views of the right ankle. COMPARISON: No relevant prior studies available. FINDINGS: Bones/joints: There is a spiral fracture of the distal right tibial metaphysis with 1.5 cm posterior displacement and 11° posterior angulation of the distal fracture fragment. There 2 oblique views of the ankle and right lower leg. The ankle mortise joint to is not well evaluated due to the positioning but no acute fracture is visible at the level of the ankle. Bone marrow density is normal. No dislocation. Soft tissues: Unremarkable. IMPRESSION: 1. There is a spiral fracture of the distal right tibial metaphysis with 1.5 cm posterior displacement and 11° posterior angulation of the distal fracture fragment. 2. Please see tib-fib films for description and proximal fibular fracture. 3. The ankle mortise joint to is not well evaluated due to the positioning but no acute fracture is visible at the level of the ankle. Electronically signed by: Josemanuel Huddleston MD 01/09/25 21:15 PM Tibia/Fibula X-Ray 01/09/25 19:28 Exam(s): XR RIGHT TIB/FIB, 2 views EXAM: XR Right Tibia and Fibula, 2 Views CLINICAL HISTORY: Reason for exam: fall. TECHNIQUE: Frontal and lateral views of the right tibia and fibula. COMPARISON: No relevant prior studies available. FINDINGS: Bones/joints: Spiral fracture of the distal diaphysis of the right tibia located 10 cm proximal to the ankle. There is 1.5 cm posterior displacement and 10° posterior angulation. There is a fracture of the proximal fibular shaft located 9 cm below the tibial plateau and 12 cm from the tibial fracture. The knee and ankle joints appear normally aligned. Soft tissues: Unremarkable. No radiopaque foreign body. IMPRESSION: 1. Spiral fracture of the distal diaphysis of the right tibia located 10 cm proximal to the ankle. There is 1.5 cm posterior displacement and 10° posterior angulation. 2. There is a fracture of the proximal fibular shaft located 9 cm below the tibial plateau and 12 cm from the tibial fracture. This likely indicates disruption of the interosseous ligament between those 2 levels. Electronically signed by: Josemanuel Huddleston MD 01/09/25 21:16 PM Chest X-Ray 01/10/25 06:00 EXAM: XR chest 1V portable CLINICAL HISTORY: pre-op TECHNIQUE: An X-ray image of the chest is obtained in AP projection. COMPARISON: 01/17/2024, 07/29/2024 FINDINGS: Pulmonary Parenchyma: No lung consolidation/collapse or focal opacities seen. No pleural effusion. Heart and Mediastinum: Mild cardiomegaly mediastinal widening or masses. No hilar or mediastinal lymphadenopathy. Bony Thorax: Bony thorax appears intact without fractures or deformities. Soft Tissues: Soft tissues overlying the chest wall are unremarkable. IMPRESSION: 1. No lung consolidation/collapse or focal opacities seen. The previously seen bilateral pulmonary opacities on the prior CT dated 07/29/2024 are difficult to assess by x-ray; follow-up CT is advised. 2. No pleural effusion. 3. Mild cardiomegaly. Electronically signed by Miah Petit 01-10-2025 07:59 AM Tibia/Fibula X-Ray 01/10/25 11:00 FL tibia/fibula RT 2V CLINICAL HISTORY: Right IM tibia nail COMPARISON STUDY: 01/09/2025 FLUOROSCOPY TIME: 60 seconds FLUOROSCOPY IMAGES: 6 EXPOSURE DOSE: 2 mGy FINDINGS: Fluoroscopy was provided for tibial nail. IMPRESSION: Intraoperative fluoroscopy. ACT 112: Negative or not required by law. Electronically signed by: Warren Jett M.D. 01/10/2025 2:[address] 01/10/25 16:43 EXAM: CT lumbar spine wo con CLINICAL HISTORY: Fall episode at home. TECHNIQUE: CT non-contrast scan of lumbar spine done. Axial images obtained with reformatted coronal and sagittal images and submitted for interpretation. One of the following dose reduction techniques was utilized for this exam: Automated exposure control, adjustment of the mA and/or kV according to patient size, use of iterative reconstruction. DLP: 2175.9 mGy-cm, CTDI: 73.5 mGy. COMPARISON: None. FINDINGS: Vertebrae: L4 grade I spondylolithesis. No fractures, lytic or sclerotic lesions. Normal bone density without evidence of osteopenia or osteoporosis. Intervertebral Discs: Normal height and signal intensity of the intervertebral discs. No evidence of disc herniation, bulging, or significant degeneration. Spinal Canal and Neural Foramina: Spinal canal mild stenosis at L3-L4 level and severe stenosis at L4-L5 an L5-S1 levels with bilateral mild to moderate neural foraminal narrowing. Facet Joints: Facet arthropathy changes seen more at L4-S1 levels. Soft Tissues: Bilateral iliac vascular stents seen. IMPRESSION: 1. No fractures, lytic or sclerotic lesions. 2. L4 grade I spondylolithesis. 3. Spondylodegenerative changes with degenerative disc disease more at L4-L5 and L5-S1 levels, causing severe spinal canal stenosis Electronically signed by Miah Petit 01-10-2025 7:[address] 01/10/25 16:44 EXAM: CT pelvis wo con CLINICAL HISTORY: fall episode at home, retention, r/o fracture TECHNIQUE: CT scan of the female pelvis was performed without the administration of intravenous contrast. Contiguous axial images were obtained from the iliac crests to the pubic symphysis. Coronal and sagittal reformatted images were also reviewed. One of the following dose reduction techniques was utilized for this exam. Automated exposure control, adjustment of the mA and/or kV according to patient size, and use of iterative reconstruction. COMPARISON: No previous studies are available for comparison. FINDINGS: Pelvic Bones: The pelvic bones are intact without evidence of fracture or destructive lesions. Evidence of hysterectomy. Bladder: The urinary bladder is seen distended with normal wall thickness, no stones or mass lesions. Rectum and Colon: The rectum and colon are within normal limits without evidence of wall thickening or abnormal enhancement. Pelvic Soft Tissues: The pelvic soft tissues are unremarkable without evidence of mass or abnormal fluid collection. Additional Findings: Iliac and bifemoral stents are noted. Occluded both external iliac and femoral vessels, for dedicated study. Focal dilatation of the left common femoral artery with atheromatous calcfication. Left inguiofemoral scarring likely post operative changes. IMPRESSION: 1. No evidence of pelvic fractures or dislocation. 2. The urinary bladder is seen distended with normal wall thickness, no stones or mass lesions. Electronically signed by Miah Petit 01-10-2025 7:46 PM PG Care Time/CCT Total # of Minutes Spent Total Time Spent with Patient: Total time spent is greater than 50% in coordination of care (as documented) at patient's floor/unit and/or counseling patient: Coding Level of Care Code 76565 SUB INP/OBS CARE 1/25MIN Diagnoses Fracture tibia/fibula S82.201A; S82.401A Encounter type: initial encounter Fracture type: closed Laterality: right Time Spent (min) 25 (1) Fracture tibia/fibula Encounter type: initial encounter Fracture type: closed Laterality: right Qualified Code(s): S82.201A - Unspecified fracture of shaft of right tibia, initial encounter for closed fracture; S82.401A - Unspecified fracture of shaft of right fibula, initial encounter for closed fracture
[2025-01-11] MEDS: METHOCARBAMOL 500 MG TABLET PO SCH (14:07)
[2025-01-12 11:17] LABS: Albumin Globulin Ratio 1.3 (0.9-2); BUN Creatinine Ratio 19.3 (10-20); Bilirubin,Total 0.5 mg/dl (0.2-1.0); Calcium 8.6 mg/dl (8.6-10.3); Creatinine Clr Calc Pharmacy 34.3 ml/min; Globulin 2.4 gm/dl (2.5-4.0); Potassium 3.6 mmol/L (3.5-5.1); Total Protein 5.4 gm/dl (6.0-8.3)
--- NOTE | 2025-01-12 12:46 | Hospitalist Progress Note ---
Date of Service January 12, 2025 Assessment & Plan (1) Fracture tibia/fibula: Plan 79 year old with PMH of multiple sclerosis, PVD, CKD, presents to the ER after a fall off stool with right ankle pain and tub/fib fracture on XR her daughter works as a physician with [employer] seen by orthopedic, s/p right tibia intra-medullary nail fixation right tibia by Dr. Adrian Jarvis on 01/10 (Monday) overall plan plan for placement to STR. c/w robaxin for pain control, monitor LFT level on duricef for 10 days after surgery, aspirin 81mg bID for DVT prevention continue to stay off wellbutrin as this is causing side effect #Right tib/fib fracture s/p right tibia intra-medullary nail fixation by Dr. Adrian Jarvis on 01/10 DVT prophylaxis with aspirin BID and plavix per orthopedic started duricef for 10 days outpaitent DEXA per admitting doctor; EKG and CXR pre-operatively, revised cardiac risk index 1, 6% risk of major cardiac event over the next 30 days pain control-robaxin with good effect racing thought on wellbutrin; stable, improving. #Chronic heart failure with improved ejection fraction (LVEF 55-60% 07/2024) / non-ischemic cardiomyopathy (cardiac cath 2022 with mild to moderate nonocclu sive CAD) Continue metoprolol succinate + Entresto, Continue furosemide 20mg PO no respiratory distress, stable #CKD IV creatinine of 1.45 baseline between 1.6--2.0 #Peripheral artery disease aspirin and plavix since resume will be on aspirin 81 BID and plavix Previously on atorvastatin but stopped due to leg cramping and memory issues #Multiple sclerosis Continue amantadine #History of gout Continue allopurinol VTE Prophylaxis - deferred pre-operatively Disposition - admit to med/surg Admission and Anticipated Discharge Date Admission Date: January 09, 2025 Subjective pain improved on robaxin no sedation racing thought resolved off wellbutrin daughter, Dr. Thornton updated at bedisde aspirin BID for DVT prophylaxis likely dc to [facility] tomorrow Review of Systems Review of Systems: Constitutional: No Weight Change, No Fever, No Chills, No Night Sweats, No Fatigue, No Malaise Cardiovascular: No Chest Pain, No SOB, No PND, No Dyspnea on Exertion, No Orthopnea, No Claudication, No Edema, No Palpitations Respiratory: No Cough, Gastrointestinal: No Nausea, No Vomiting, No Diarrhea, Musculoskeletal: no worsening right leg pain, + for chronic back pain Neuro: No Weakness, No Numbness, No Paresthesias, No Loss of Consciousness, No Syncope, No Dizziness, No Headache, No Coordination Changes, No Recent Falls Psych: racing thought resolved off wellbutrin Physical Exam Physical Exam: VITALS: Reviewed. WEIGHT/BMI reviewed. GEN: Healthy appearing, well-developed, NAD. PSYCH: Good Judgment. AOx3. Normal memory, mood, and affect. HEENT -Head: NC/AT; NECK: Supple, with no masses. CV: RRR, no m/r/g. LUNGS: CTAB, no w/r/c. decrease breath sound; no respiratory distress ABD: Soft, NT/ND, NBS, no masses or organomegaly. : N/A SKIN: Warm, well perfused. No skin rashes or abnormal lesions. MSK: right leg covered by dressing; left foot has dressing NEURO: AAox3 Results & Data Results & Data Vital Signs (Past 12 Hours) Vital Signs Temp Pulse Resp BP Pulse Ox O2 Del Method 01/12/25 07:37 37 C 77 18 138/59 L 94 Room Air Laboratory Results Abnormal lab results 01/12/25 Range/Units 10:36 Carbon Dioxide 33 H (21-32) mmol/L Anion Gap 0 L (3-11) BUN 28 H (6-23) mg/dl Creatinine 1.45 H (0.6-1.2) mg/dl Glucose 148 H (70-99(Fasting)) mg/dl AST 10 L (13-39) U/L ALT 4 L (7-52) U/L Total Protein 5.4 L (6.0-8.3) gm/dl Albumin 3.0 L (3.4-5.0) gm/dl Globulin 2.4 L (2.5-4.0) gm/dl Diagnostic Findings Laboratory Results WBC 7.42 K/ul (4.8-10.8) 01/11/25 06:34 RBC 3.52 M/uL (4.20-5.40) L 01/11/25 06:34 Hgb 10.3 g/dl (12.0-16.0) L 01/11/25 06:34 POC Hgb 11.2 g/dl (12.0-16.0) L 01/09/25 19:56 Hct 31.0 % (37.0-47.0) L 01/11/25 06:34 POC Hct 33 % (37-47) L 01/09/25 19:56 MCV 88.1 fL (80.0-100.0) 01/11/25 06:34 MCH 29.3 pg (25.0-34.0) 01/11/25 06:34 MCHC 33.2 g/dL (32.0-36.0) 01/11/25 06:34 RDW Std Deviation 46.2 fL (36.4-46.3) 01/11/25 06:34 RDW Coeff of Aminah 14.3 % (11.5-14.5) 01/11/25 06:34 Plt Count 141 K/uL (130-400) 01/11/25 06:34 MPV 11.4 fL (9.4-12.4) 01/11/25 06:34 Immature Gran % (Auto) 0.4 % 01/09/25 19:15 Neut % (Auto) 64.9 % 01/09/25 19:15 Lymph % (Auto) 24.5 % 01/09/25 19:15 Mcmullen % (Auto) 6.9 % 01/09/25 19:15 Eos % (Auto) 2.9 % 01/09/25 19:15 Baso % (Auto) 0.4 % 01/09/25 19:15 Neut # (Auto) 3.56 K/uL (1.40-6.50) 01/09/25 19:15 Lymph # (Auto) 1.34 K/uL (1.20-3.40) 01/09/25 19:15 Mcmullen # (Auto) 0.38 K/uL (0.11-0.59) 01/09/25 19:15 Eos # (Auto) 0.16 K/uL (0.00-0.50) 01/09/25 19:15 Baso # (Auto) 0.02 K/uL (0.00-0.20) 01/09/25 19:15 Immature Gran # (Auto) 0.02 K/uL (0.01-0.20) 01/09/25 19:15 PT 10.5 Seconds (9.0-12.0) 01/09/25 19:15 INR 1.0 (0.9-1.1) 01/09/25 19:15 APTT 20 Seconds (21-31) L 01/09/25 19:15 PTT Ratio 0.7 01/09/25 19:15 POC Sodium 142 mmol/L (135-144) 01/09/25 19:56 Sodium 138 mmol/L (136-145) 01/12/25 10:36 POC Potassium 3.4 mmol/L (3.3-5.0) 01/09/25 19:56 Potassium 3.6 mmol/L (3.5-5.1) 01/12/25 10:36 POC Chloride 105 mmol/L (101-112) 01/09/25 19:56 Chloride 105 mmol/L (98-107) 01/12/25 10:36 Carbon Dioxide 33 mmol/L (21-32) H 01/12/25 10:36 POC Total CO2 23 mmol/L (24-31) L 01/09/25 19:56 Anion Gap 0 (3-11) L 01/12/25 10:36 POC Anion Gap 18.0 mmol/L (16-25) 01/09/25 19:56 POC BUN 38 mg/dl (7-18) H 01/09/25 19:56 BUN 28 mg/dl (6-23) H 01/12/25 10:36 Creatinine 1.45 mg/dl (0.6-1.2) H 01/12/25 10:36 POC Creatinine 2.0 mg/dl (0.6-1.3) H 01/09/25 19:56 Est Cr Clr Drug Dosing 34.3 ml/min 01/12/25 10:36 eGFR 37.15 01/12/25 10:36 BUN/Creatinine Ratio 19.3 (10-20) 01/12/25 10:36 Glucose 148 mg/dl (70-99(Fasting)) H 01/12/25 10:36 POC Glucose (other) 156 mg/dl (70-99) H 01/09/25 19:56 Fasting Glucose 182 mg/dl (70-99) H 01/11/25 06:34 Calcium 8.6 mg/dl (8.6-10.3) 01/12/25 10:36 POC Ioniz Calcium Janelle 1.20 mmol/l (1.12-1.32) 01/09/25 19:56 Magnesium 1.8 mg/dl (1.7-2.4) 01/09/25 19:15 Total Bilirubin 0.5 mg/dl (0.2-1.0) 01/12/25 10:36 AST 10 U/L (13-39) L 01/12/25 10:36 ALT 4 U/L (7-52) L 01/12/25 10:36 Alkaline Phosphatase 91 U/L (34-104) 01/12/25 10:36 Total Protein 5.4 gm/dl (6.0-8.3) L 01/12/25 10:36 Albumin 3.0 gm/dl (3.4-5.0) L 01/12/25 10:36 Globulin 2.4 gm/dl (2.5-4.0) L 01/12/25 10:36 Albumin/Globulin Ratio 1.3 (0.9-2) 01/12/25 10:36 25-OH Vitamin D Total 36.2 ng/ml (30-100) 01/10/25 07:55 Impressions Ankle X-Ray 01/09/25 19:28 Exam(s): XR RIGHT ANKLE, 3+ views EXAM: XR Right Ankle, 2 Views CLINICAL HISTORY: Reason for exam: fall. TECHNIQUE: Frontal and lateral views of the right ankle. COMPARISON: No relevant prior studies available. FINDINGS: Bones/joints: There is a spiral fracture of the distal right tibial metaphysis with 1.5 cm posterior displacement and 11° posterior angulation of the distal fracture fragment. There 2 oblique views of the ankle and right lower leg. The ankle mortise joint to is not well evaluated due to the positioning but no acute fracture is visible at the level of the ankle. Bone marrow density is normal. No dislocation. Soft tissues: Unremarkable. IMPRESSION: 1. There is a spiral fracture of the distal right tibial metaphysis with 1.5 cm posterior displacement and 11° posterior angulation of the distal fracture fragment. 2. Please see tib-fib films for description and proximal fibular fracture. 3. The ankle mortise joint to is not well evaluated due to the positioning but no acute fracture is visible at the level of the ankle. Electronically signed by: Josemanuel Huddleston MD 01/09/25 21:15 PM Chest X-Ray 01/10/25 06:00 EXAM: XR chest 1V portable CLINICAL HISTORY: pre-op TECHNIQUE: An X-ray image of the chest is obtained in AP projection. COMPARISON: 01/17/2024, 07/29/2024 FINDINGS: Pulmonary Parenchyma: No lung consolidation/collapse or focal opacities seen. No pleural effusion. Heart and Mediastinum: Mild cardiomegaly mediastinal widening or masses. No hilar or mediastinal lymphadenopathy. Bony Thorax: Bony thorax appears intact without fractures or deformities. Soft Tissues: Soft tissues overlying the chest wall are unremarkable. IMPRESSION: 1. No lung consolidation/collapse or focal opacities seen. The previously seen bilateral pulmonary opacities on the prior CT dated 07/29/2024 are difficult to assess by x-ray; follow-up CT is advised. 2. No pleural effusion. 3. Mild cardiomegaly. Electronically signed by Miah Petit 01-10-2025 07:59 AM Tibia/Fibula X-Ray 01/10/25 11:00 FL tibia/fibula RT 2V CLINICAL HISTORY: Right IM tibia nail COMPARISON STUDY: 01/09/2025 FLUOROSCOPY TIME: 60 seconds FLUOROSCOPY IMAGES: 6 EXPOSURE DOSE: 2 mGy FINDINGS: Fluoroscopy was provided for tibial nail. IMPRESSION: Intraoperative fluoroscopy. ACT 112: Negative or not required by law. Electronically signed by: Warren Jett M.D. 01/10/2025 2:[address] 01/10/25 16:43 EXAM: CT lumbar spine wo con CLINICAL HISTORY: Fall episode at home. TECHNIQUE: CT non-contrast scan of lumbar spine done. Axial images obtained with reformatted coronal and sagittal images and submitted for interpretation. One of the following dose reduction techniques was utilized for this exam: Automated exposure control, adjustment of the mA and/or kV according to patient size, use of iterative reconstruction. DLP: 2175.9 mGy-cm, CTDI: 73.5 mGy. COMPARISON: None. FINDINGS: Vertebrae: L4 grade I spondylolithesis. No fractures, lytic or sclerotic lesions. Normal bone density without evidence of osteopenia or osteoporosis. Intervertebral Discs: Normal height and signal intensity of the intervertebral discs. No evidence of disc herniation, bulging, or significant degeneration. Spinal Canal and Neural Foramina: Spinal canal mild stenosis at L3-L4 level and severe stenosis at L4-L5 an L5-S1 levels with bilateral mild to moderate neural foraminal narrowing. Facet Joints: Facet arthropathy changes seen more at L4-S1 levels. Soft Tissues: Bilateral iliac vascular stents seen. IMPRESSION: 1. No fractures, lytic or sclerotic lesions. 2. L4 grade I spondylolithesis. 3. Spondylodegenerative changes with degenerative disc disease more at L4-L5 and L5-S1 levels, causing severe spinal canal stenosis Electronically signed by Miah Petit 01-10-2025 7:[address] 01/10/25 16:44 EXAM: CT pelvis wo con CLINICAL HISTORY: fall episode at home, retention, r/o fracture TECHNIQUE: CT scan of the female pelvis was performed without the administration of intravenous contrast. Contiguous axial images were obtained from the iliac crests to the pubic symphysis. Coronal and sagittal reformatted images were also reviewed. One of the following dose reduction techniques was utilized for this exam. Automated exposure control, adjustment of the mA and/or kV according to patient size, and use of iterative reconstruction. COMPARISON: No previous studies are available for comparison. FINDINGS: Pelvic Bones: The pelvic bones are intact without evidence of fracture or destructive lesions. Evidence of hysterectomy. Bladder: The urinary bladder is seen distended with normal wall thickness, no stones or mass lesions. Rectum and Colon: The rectum and colon are within normal limits without evidence of wall thickening or abnormal enhancement. Pelvic Soft Tissues: The pelvic soft tissues are unremarkable without evidence of mass or abnormal fluid collection. Additional Findings: Iliac and bifemoral stents are noted. Occluded both external iliac and femoral vessels, for dedicated study. Focal dilatation of the left common femoral artery with atheromatous calcfication. Left inguiofemoral scarring likely post operative changes. IMPRESSION: 1. No evidence of pelvic fractures or dislocation. 2. The urinary bladder is seen distended with normal wall thickness, no stones or mass lesions. Electronically signed by Miah Petit 01-10-2025 7:46 PM Medications Administered Current Inpatient Medications Acetaminophen (Acetaminophen 500 Mg Tab) 1,000 mg PO TID HI Stop: 02/09/25 08:59 Last Admin: 01/12/25 08:21 Dose: 1,000 mg Albuterol (Albuterol Hfa 8 Gm Inhaler) 1 puffs INH Q6 PRN PRN Reason: Shortness Of Breath Or Wheezing Stop: 02/09/25 01:37 Allopurinol (Allopurinol 100 Mg Tab) 100 mg PO DAILY [facility] Stop: 02/09/25 08:59 Last Admin: 01/12/25 08:14 Dose: 100 mg Amantadine HCl (Amantadine Hcl 100 Mg Capsule) 100 mg PO BID HI Stop: 02/09/25 01:37 Last Admin: 01/12/25 08:14 Dose: 100 mg Aspirin (Aspirin 81 Mg Ectab) 81 mg PO BID HI Stop: 02/09/25 20:59 Last Admin: 01/12/25 08:15 Dose: 81 mg Bupropion HCl (Bupropion Sr 150 Mg Tabcr) 150 mg PO BID [facility] Stop: 02/09/25 01:37 Last Admin: 01/11/25 08:09 Dose: 150 mg Furosemide (Furosemide 20 Mg Tab) 20 mg PO DAILY [facility] Stop: 02/09/25 08:59 Last Admin: 01/12/25 08:15 Dose: 20 mg Ipratropium [place] (Ipratropium [place] Nasal [place] 0.03% 30 Ml) 2 sprays TONYA BID [facility] Stop: 02/09/25 01:37 Last Admin: 01/12/25 08:14 Dose: 2 sprays Isosorbide Mononitrate (Isosorbide Mcmullen Extended Rel 60 Mg Tabcr) 60 mg PO QAM [facility] Stop: 02/09/25 08:59 Last Admin: 01/12/25 08:14 Dose: 60 mg Magnesium Chloride (Magnesium Chloride W/Calcium 64mg Delayed Rel Tab) 64 mg PO QPM HI Stop: 02/09/25 01:59 Last Admin: 01/11/25 19:55 Dose: 64 mg Methocarbamol (Methocarbamol 500 Mg Tablet) 500 mg PO TID [facility] Stop: 02/10/25 13:59 Last Admin: 01/12/25 08:15 Dose: 500 mg Metoprolol Succinate (Metoprolol Succ 25mg Ext Rel Tab) 25 mg PO QAM [facility] Stop: 02/09/25 08:59 Last Admin: 01/12/25 08:15 Dose: 25 mg Morphine Sulfate (Morphine Sulfate 2 Mg/Ml Carp) 1 mg IV Q3H PRN PRN Reason: Pain (1,2,3,4,5) & Pre PT Stop: 01/24/25 01:37 Morphine Sulfate (Morphine Sulfate 2 Mg/Ml Carp) 2 mg IV Q3H PRN PRN Reason: Pain (6,7,8,9,10) Stop: 01/24/25 01:37 Last Admin: 01/10/25 07:16 Dose: 2 mg Oxycodone HCl (Oxycodone Hcl Ir 5 Mg Tab (Immediate Release)) 2.5 mg PO Q4H PRN PRN Reason: MODERATE Pain (4,5,6) & Pre PT Stop: 01/24/25 01:37 Oxycodone HCl (Oxycodone Hcl Ir 5 Mg Tab (Immediate Release)) 5 mg PO Q4H PRN PRN Reason: SEVERE Pain (7,8,9,10) Stop: 01/24/25 01:37 Last Admin: 01/12/25 08:20 Dose: 5 mg Pantoprazole Sodium (Pantoprazole 40 Mg Tab) 40 mg PO DAILY [facility] Stop: 02/09/25 08:59 Last Admin: 01/12/25 08:15 Dose: 40 mg Sacubitril/Valsartan (Valsartan/Sacubitril 26/24mg Tab) 1 tab PO BID [facility] Stop: 02/09/25 01:37 Last Admin: 01/12/25 08:15 Dose: 1 tab Tamsulosin HCl (Tamsulosin Hcl 0.4 Mg Cap) 0.4 mg PO QAM [facility] Stop: 02/09/25 08:59 Last Admin: 01/12/25 08:15 Dose: 0.4 mg PG Care Time/CCT Total # of Minutes Spent Total Time Spent with Patient: Total time spent is greater than 50% in coordination of care (as documented) at patient's floor/unit and/or counseling patient: Coding Level of Care Code 73570 SUB INP/OBS CARE 2/35MIN Diagnoses Fracture tibia/fibula S82.201A; S82.401A Encounter type: initial encounter Fracture type: closed Laterality: right Time Spent (min) 35 (1) Fracture tibia/fibula Encounter type: initial encounter Fracture type: closed Laterality: right Qualified Code(s): S82.201A - Unspecified fracture of shaft of right tibia, initial encounter for closed fracture; S82.401A - Unspecified fracture of shaft of right fibula, initial encounter for closed fracture
--- NOTE | 2025-01-13 07:00 | History & Physical Bridge Note ---
Date of Service January 13, 2025 History & Physical Bridge Note I have examined the patient, reviewed the History & Physical and in the interval since the performance of the History & Physical I have noted the following changes of clinical significance: no changes noted
[2025-01-13 07:43] VITALS: BP 161/65; PULSE 86; RESP 16; TEMP 98.2; O2SAT 97
--- NOTE | 2025-01-13 07:43 | Orthopedic Progress Note ---
Date of Service January 13, 2025 Assessment & Plan (1) Fracture of right tibia and fibula: POD 3 from IM nailing of tib/fib fx. Continue PT/OT: nonweight bearing on RLE. Continue to ice/elevate RLE dvt prophylaxis: aspirin BID D/c planning: possibly to rehab today per patient. Should follow up with orthopedics 2 weeks post op Subjective .79 year old patient POD 3 from IM nailing of right tib/fib fracture by Dr Jarvis. Pain reasonably controlled. She does report some pain around the anterior knee. She said her dressing was changed yesterday. Review of Systems All systems reviewed & are unremarkable except as noted in HPI & below. Physical Exam . alert, NAD. Right leg: Splint/dressing clean, dry, intact. Some mild swelling around the knee, tender anteriorly. Able to move toes appropriately. NVI Results & Data Results & Data Laboratory Results . Diagnostic Findings . PG Care Time/CCT Total # of Minutes Spent Total Time Spent with Patient: Total time spent is greater than 50% in coordination of care (as documented) at patient's floor/unit and/or counseling patient: Coding Level of Care Code 76862 Post Operative Follow-Up Diagnoses Fracture of right tibia and fibula S82.201A; S82.401A
[2025-01-13 08:18] LABS: Hematocrit (blood only) 29.5 % (37.0-47.0); Hemoglobin 10.7 g/dl (12.0-16.0); Mean Corpuscular Hemoglobin 32.4 pg (25.0-34.0); Mean Corpuscular Hgb Conc 36.3 g/dL (32.0-36.0); Mean Corpuscular Volume 89.4 fL (80.0-100.0); Mean Platelet Volume 11.7 fL (9.4-12.4); Platelet Count 145 K/uL (130-400); RDW Coefficient of Variation 14.6 % (11.5-14.5); RDW Standard Deviation 47.5 fL (36.4-46.3); White Blood Count 5.63 K/ul (4.8-10.8)
[2025-01-13 08:39] LABS: BUN Creatinine Ratio 17.7 (10-20); Calcium 8.6 mg/dl (8.6-10.3); Creatinine Clr Calc Pharmacy 35.3 ml/min; Potassium 4.2 mmol/L (3.5-5.1)
--- NOTE | 2025-01-13 12:03 | Discharge Summary ---
Discharge Summary Date of Service January 13, 2025 Principal Dx & Hospital Course #1 = Principal Diagnosis (1) Fracture tibia/fibula: She's was seen by orthopedic and s/p IM nailing of right tibia fibular by Dr. Jarvis (DO, orthopedic) duricet 500g BID for 10 days started ob robaxin for pain control non-weight bearing of the right leg. interview dressing change follow up with Dr. 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 Adrian Jarvis on 01/10 (Monday) #Right tib/fib fracture s/p right tibia intra-medullary nail fixation by Dr. Adrian Jarvis on 01/10 DVT prophylaxis with aspirin BID and plavix per orthopedic started duricef for 10 days outpaitent DEXA per admitting doctor; EKG and CXR pre-operatively, revised cardiac risk index 1, 6% risk of major cardiac event over the next 30 days urinary retention-has wilson inserted can provide voiding trial in 5-7 days, flomax pain control-robaxin with good effect racing thought on wellbutrin; stable, improving. 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) Continue metoprolol succinate + Entresto, Continue furosemide 20mg PO no respiratory distress, stable #CKD IV creatinine of 1.41 baseline between 1.6--2.0 #Peripheral artery disease will be on aspirin 81 BID and plavix Previously on atorvastatin but stopped due to leg cramping and memory issues #Multiple sclerosis Continue amantadine #History of gout Continue allopurinol VTE Prophylaxis - deferred pre-operatively Disposition - admit to med/surg Notes For Next Care Provider stop wellbutrin given adverse side effect aspirin 81mg BID and plavix for DVT prophylaxis duricet 500mg BID for 10 days Admission HPI Per Admitting Provider Bee Turcios is a 79 year old female with PMH of PVD, CKD (creatinine 1.5--1.6), CHF. Her daughter is a physician. who presents to the ER with right ankle pain. She had a right leg on a stool with rollers while bending down to get something out of cabinets when the stool which was less than a foot high gave way and pulled her leg down to the ground in an unusual way. Having right ankle pain since the fall and felt a snap at the time. Leg is currently in a splint but was described as a closed fracture by ER provider. She reports possibly having osteoporosis 30 years ago and may have been medication but nothing recently. She also has a significant history of nonischemic cardiomyopathy but reports no recent weight gain, shortness of breath, chest pain, leg swelling and palpitations. She currently otherwise feels at her b aseline. No chest pain, shortness of breath, dizziness prior to her fall. Hospital Course She was seen by orthopedic doctor; she's s/p right tibia intramedullary nail fixation by Dr. Adrian Jarvis. afterward, she has urinary retention and needed followed orthopedic requested DVT prophylaxis with aspirin 81mg BID and plavix 75mg daily. started on robaxin TID for pain control with good effect. Dr. Jarvis requested patient stay on oral antibiotics, cedadroxil 500mg BID for 10 days orthopedic further recommended non-weight bearing on right leg. elevated of right leg. she was dc to [facility] on 01/13/2025. Discharge Exam VITALS: Reviewed. WEIGHT/BMI reviewed. GEN: Healthy appearing, well-developed, NAD. PSYCH: Good Judgment. AOx3. Normal memory, mood, and affect. HEENT -Head: NC/AT; NECK: Supple, with no masses. CV: RRR, no m/r/g. LUNGS: CTAB, no w/r/c. decrease breath sound; no respiratory distress ABD: Soft, NT/ND, NBS, no masses or organomegaly. : N/A SKIN: Warm, well perfused. No skin rashes or abnormal lesions. 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 and has dressing NEURO: AAox3 Discharge Plan Discharge Items Patient Disposition: Transfer Half-Way Fac Reason For Visit: TIB/FIB FRACTURE Discharge Diagnosis: Right tibial fracture, urinary retention abnormal reaction to wellbutrin Condition on Discharge: Fair Activity: Per Instructions section Activity Comment: non-weight bearing on right lower extremity Lifting: Wait until after follow-up appointment Bathing: Keep incision dry Weightbearing: Right non-weightbearing Non-emergency contact: Primary Care Provider and Surgeon Call non-emergency contact if: your wound has increased redness and your wound has increased drainage Follow-up/Referrals: Maynor Thornton DO [Primary Care Provider] - Diet: Regular Addtl Attending Provider Instructions: non-weight bearing on right lower extremity elevated right lower extremity voiding trail in 7-10 days aspirin 81mg BID, plavix daily for DVT prophylaxis folllw up with orthopedic for 2 weeks antibiotics (cefadroxil 500mg BID) for 10 days Addtl [employer] Att[employer] Provider Instructions: ORTHOPEDIC INSTRUCTIONS Activity Recommendations: Nonweightbearing on the right leg for now. Medications: Take narcotics as needed for pain. Take aspirin 81 mg twice a day for 6 weeks to help prevent blood clots. Take cefadroxil 500 mg twice a day for 10 days to help prevent infection. Dressing Care: Leave the trauma splint in place. Showering: Do not get the trauma splint wet. Diet: You may resume your previous diet. Things To Watch For: 1. Drainage from the incision site that occurs more than one week after your surgery. 2. Increased redness at the incision site. 3. Fever above 102 degrees Fahrenheit. 4. Unusual chest pain or shortness of breath. 5. Call [facility] at with any of the above problems Follow-Up Visit: Follow-up with Dr. Jarvis's office 2-3 weeks after your day of surgery. We will remove your day and answer any questions. If you have any additional questions or concerns, Dr Jarvis is usually in the office at the same time and will be available Please call the office to set up an appointment for a time that works for you. Pending Studies at Discharge: No Stand-Alone Forms: My [facility] Skilled Items Patient informed of condition?: Yes DNR: Yes Discharge Level of Care: Skilled Communicable Disease: No Discharge Prognosis: Stable Lines: None Urinary Catheter: Yes Medications and DC Order Prescriptions: New cefadroxil 500 mg capsule 500 mg PO BID 10 Days Qty: 20 0RF oxycodone 5 mg Tablet 5 mg PO Q4H PRNQty: 0 0RF oxycodone 5 mg Tablet 2.5 mg PO Q4H PRNQty: 0 0RF methocarbamol 500 mg tablet 500 mg PO TID 30 Days Qty: 90 0RF tamsulosin [Flomax] 0.4 mg capsule 0.4 mg PO HS 14 Days Qty: 14 0RF Rx Instructions: hold for hypotension, can take off if able to void spontaneously Continued clopidogrel [Plavix] 75 mg tablet 75 mg PO QAM Qty: 90 3RF isosorbide mononitrate 60 mg tablet extended release 24 hr 60 mg PO QAM Qty: 90 3RF metoprolol succinate 25 mg tablet extended release 24 hr 25 mg PO QAM Qty: 90 3RF furosemide 20 mg tablet 20 mg PO DAILY Qty: 90 3RF multivitamin Tablet 1 tab PO QAM Entresto 24-26 mg tablet 1 tab PO BID Qty: 180 3RF ipratropium bromide 21 mcg (0.03 %) spray,non-aerosol 2 spray intranasal BID Qty: 30 3RF Rx Instructions: administer into each nostril Slow-Mag 71.5 mg tablet,delayed release (DR/EC) 71.5 mg PO QPM amantadine HCl 100 mg capsule 100 mg PO BID allopurinol 100 mg tablet 100 mg PO DAILY Rx Instructions: TAKE ONE TABLET BY MOUTH EVERY DAY pantoprazole 40 mg tablet,delayed release (DR/EC) 40 mg PO DAILY albuterol sulfate 90 mcg/actuation HFA aerosol inhaler 1 puff inhalation Q6 PRN (Reason: Shortness Of Breath Or Wheezing) oxycodone-acetaminophen [Percocet] 5-325 mg tablet 1 tab PO DAILY PRN (Reason: pain) Qty: 30 0RF Changed aspirin [Adult Low Dose Aspirin] 81 mg tablet,delayed release (DR/EC) 81 mg PO BID 42 Days Qty: 0 0RF Discontinued bupropion HCl [Wellbutrin SR] 150 mg tablet sustained-release 12 hr 150 mg PO BID 30 Days Qty: 60 0RF Discharge Orders: Discharge Order (Routine); Ordered 01/13/25 Ordered By: Ileana Moe/Other Patient Handouts: Leg or Arm Fracture Admission Data Admit Date/Time: 01/09/25 22:12 Attending Provider: Ileana Hallman Admit Provider: Rojelio Irizarry Primary Care Provider: Maynor Thornton Other Providers: Cornell Long; Rojelio Irizarry; [facility]; Cole John at [facility] Stay Data Consultations 01/09/25 21:55 Consult Orthopedic Surgery Routine 01/09/25 22:13 ED Decision to Admit Stat Procedures Performed Operation Date: 01/10/25 09:10 Actual Procedures p Right Tibia Intramedullary Nail(Right) - Adrian Jarvis DO Diagnostic Imagining Performed 01/10/25 11:00 FL tibia/fibula RT 2V Routine 01/10/25 16:43 CT lumbar spine wo con Stat 01/10/25 16:44 CT pelvis wo con Stat Pending Results Patient Have Any Pending Studies at Discharge: No Discharge Instructions Given to Patient (Per Discharging Provider) non-weight bearing on right lower extremity elevated right lower extremity voiding trail in 7-10 days aspirin 81mg BID, plavix daily for DVT prophylaxis folllw up with orthopedic for 2 weeks antibiotics (cefadroxil 500mg BID) for 10 days Total Time Total Time Spent Total Time Spent (In Minutes): 25 minutes Coding Level of Care Code 86842 IN/OBS DISCH 30 MIN/LESS Diagnoses Fracture tibia/fibula S82.201A; S82.401A Encounter type: initial encounter Fracture type: closed Laterality: right Time Spent (min) 25 Discharge Summary Admission Date / Reason Admission Reason For Visit: TIB/FIB FRACTURE Procedures Performed Operation Date: 01/10/25 09:10 Actual Procedures p Right Tibia Intramedullary Nail(Right) - Adrian Jarvis DO Consultations Consultations: 01/09/25 21:55 Consult Orthopedic Surgery Routine 01/09/25 22:13 ED Decision to Admit Stat
[2025-01-13] MEDS ORDERED: cefaDROXiL 500 MG CAP PO SCH (21:00)
--- NOTE | 2025-01-14 12:21 | Coding Query ---
To promote full compliance with coding requirements relating to patient care, physician participation is requested in all cases of public relations senior associate uncertainty. Please assist us with the question(s) below: Coding Question(s): It was noted throughout the record that the patient has/is suspected to have osteoporosis. According to coding guidelines "a code for osteoporotic fracture, and not a traumatic fracture, should be used for any patient with known osteoporosis who suffers a fracture, even if the patient had a minor fall or trauma, if that fall or trauma would not usually break a normal, healthy bone." Please indicate below the type of fracture: Physician's Response(s): ( ) Osteoporotic fracture of Right Tib/Fib ( x ) Traumatic fracture of Right Tib/Fib ( ) Other, please specify MTDD
== END 2025-01-13 15:50 | DRG 493 ==
LOC: ED 19:07 → SUATTDRO 22:12 → 3W 22:12